=== PATIENT | male | born 1985 | race Caucasian/White ===

== ENCOUNTER 2022-07-01 11:23 | Emergency (ER) | payer BC, SELFPAY ==
[2022-07-01 11:36] VITALS: BP 133/86; PULSE 75; RESP 20; TEMP 36.5; O2SAT 99
--- NOTE | 2022-07-01 12:12 | ED.LOWEXIN ---
HPI - Extremity Injury (Lower) General Chief Complaint: Extremity Injury, Lower Stated Complaint: rt foot pain Source: patient Mode of arrival: ambulatory Limitations: no limitations History of Present Illness HPI Narrative: This is a 37 year old male that come in complaining right great toe pain that has been hurting since Halloween democrat. Patient state that it is not getting any better and it is hurting when he puts his socks and shoes on . Patient states that he believes he has gout even though he has never had it before. He states he does drink he like his Beer and bourbon. Related Data Home Medications Medication Instructions Recorded Confirmed azelastine 137 mcg (0.1 %) nasal 137 mcg intranasal Q12H 07/01/22 07/01/22 spray aerosol cetirizine 10 mg tablet (Zyrtec) 10 mg PO DAILY 07/01/22 07/01/22 Allergies Allergy/AdvReac Type Severity Reaction Status Date / Time No Known Allergies Allergy Unknown Verified 07/01/22 11:40 Review of Systems Review of Systems: right great toe pain All systems reviewed & are unremarkable except as noted in HPI and below Exam Narrative: GENERAL:Well-appearing, well-nourished, and in no acute distress. HEAD:Normocephalic, atraumatic. EYES: PERRLA . ENT: Nares clear, no rhinorrhea or epistaxis. Mucous membranes moist. CHEST: No respiratory distress. HEART: Regular rate and rhythm. Normal peripheral pulses. ABDOMEN: Soft, nontender, nondistended, normal active bowel sounds. EXTREMITIES: Normal range of motion. No edema. right great toe swollen minimal erythema painful palpation and painful to even move SKIN: Warm, dry, no rash. NEURO: No focal deficits. Alert and oriented x3. I offered a xray to see if I could see some crystallization patient declined and just wanted to be treated for gout. Course Course Level of Care: Express Care Visit Vital Signs Vital signs: Vital Signs Temperature 97.7 F 07/01/22 11:36 Pulse Rate 75 07/01/22 11:36 Respiratory Rate 20 07/01/22 11:36 Blood Pressure 133/86 07/01/22 11:36 Pulse Oximetry 99 07/01/22 11:36 Oxygen Delivery Room Air 07/01/22 11:36 Temperature 97.7 F 07/01/22 11:36 Pulse Rate 75 07/01/22 11:36 Respiratory Rate 20 07/01/22 11:36 Blood Pressure 133/86 07/01/22 11:36 Pulse Oximetry 99 07/01/22 11:36 Oxygen Delivery Room Air 07/01/22 11:36 MDM - Extremity Injury (Lower) Differential Diagnosis Differential diagnosis: Likely ankle sprain and strain, puncture wound of foot and fracture of toe Discharge Plan Discharge Clinical Impression: Acute gout involving toe of right foot Patient Disposition: Home, Self-Care Condition: Stable Instructions: Antibiotic Form, Gout (ED) Additional Instructions: If the joint is swollen, put ice or a cold pack on the area for 10 to 20 minutes at a time. Put a thin cloth between the ice and your skin. Prop up the sore limb on a pillow when you ice it or anytime you sit or lie down during the next 3 days. Try to keep it above the level of your heart. This can help reduce swelling. Rest sore joints. Avoid activities that put weight or strain on the joints for a few days. Take short rest breaks from your regular activities during the day. Take your medicines exactly as prescribed. Call your doctor or nurse advice line if you think you are having a problem with your medicine. Take pain medicines exactly as directed. If the doctor gave you a prescription medicine for pain, take it as prescribed. If you are not taking a prescription pain medicine, ask your doctor if you can take an [id number] medicine. Eat less seafood and red meat. Avoid foods or drinks that are made with high-fructose corn syrup. Check with your doctor before drinking alcohol. Losing weight, if you are overweight, may help reduce attacks of gout. But do not go on a diet that causes rapid weight loss. Losing a lot of weight in a short amount of time can caus
== END 2022-07-01 11:56 | disposition home or self-care (01) ==
PROVIDERS: Emergency Provider Nurse Practitioner Family
DX: M10.9 Gout, unspecified (principal)
CPT/HCPCS: 99213; G0463

== ENCOUNTER 2023-01-10 08:08 | Emergency (ER) | payer BC, SELFPAY ==
[2023-01-10 08:19] VITALS: BP 126/87; PULSE 98; RESP 20; TEMP 36.6; O2SAT 97
--- NOTE | 2023-01-10 08:41 | ED.URI ---
HPI - URI/Sore Throat General Chief Complaint: Upper Respiratory Infection Stated Complaint: Sore Throat Time Seen by Provider: 01/10/23 08:28 Source: patient and RN notes reviewed Mode of arrival: ambulatory Limitations: no limitations History of Present Illness HPI Narrative: Presents today complaining of 2 day history of sore throat. Also complains of some allergy symptoms such as rhinorrhea, congestion, and postnasal. Denies fever. Currently rates his pain 3/10 and has been taking Ro-[place] Plus with some relief, along with his allergy medication, Zyrtec and Flonase. Daughter was recently diagnosed with strep throat. Related Data Home Medications Medication Instructions Recorded Confirmed cetirizine 10 mg tablet (Zyrtec) 10 mg PO DAILY 07/01/22 01/10/23 fluticasone propionate 50 2 spray intranasal DAILY 01/10/23 01/10/23 mcg/actuation nasal spray,suspension Allergies Allergy/AdvReac Type Severity Reaction Status Date / Time No Known Allergies Allergy Unknown Verified 01/10/23 08:29 Review of Systems Review of Systems: CONSTITUTIONAL: Denies body aches, fever, chills, or sweats. EYES: Denies visual changes, redness, or discharge. ENT: Denies otalgia.+ sore throat, congestion, rhinorrhea, postnasal drip CARDIOVASCULAR: Denies chest pain, palpitations, or edema. RESPIRATORY: Denies cough or dyspnea. GASTROINTESTINAL: Denies abdominal pain, nausea, vomiting, or diarrhea. GENITOURINARY: Denies dysuria or hematuria. SKIN: Denies rash, itching, or wounds. MUSCULOSKELETAL: Denies back pain, joint pain, or myalgia. NEUROLOGIC: Denies headache, numbness, tingling, or weakness. PSYCH: Denies depression or anxiety. PMFSH Comments At time of signature, I have reviewed and agree with nursing past medical, surgical, social and family history unless otherwise noted. Please see nursing chart for further information. There is no relevant family history pertinent to the presenting complaint Exam Narrative: GENERAL: Well-appearing, well-nourished, and in no acute distress. HEAD: Normocephalic, atraumatic. EYES: EOMI. No redness or drainage. Conjunctivae normal. ENT: Mucous membranes pink and moist. Nares clear. No rhinorrhea. TMs normal bilaterally. Throat erythematous with mild edema. No exudate. Uvula midline. NECK: Normal AROM. Supple. No lymphadenopathy. CHEST: No respiratory distress. Clear to auscultation. HEART: Regular rate and rhythm. No murmur appreciated. Normal peripheral pulses. EXTREMITIES: Normal range of motion. No edema. SKIN: Warm, dry, no rash. Capillary refill normal. Normal skin turgor. NEURO: No focal deficits. Alert and oriented x3. Gait steady. PSYCH: Normal affect. No signs of depression or anxiety. Course Course Level of Care: Express Care Visit Vital Signs Vital signs: Vital Signs Temperature 97.8 F 01/10/23 08:19 Pulse Rate 98 01/10/23 08:19 Respiratory Rate 20 01/10/23 08:19 Blood Pressure 126/87 01/10/23 08:19 Pulse Oximetry 97 01/10/23 08:19 Oxygen Delivery Room Air 01/10/23 08:19 Temperature 97.8 F 01/10/23 08:19 Pulse Rate 98 01/10/23 08:19 Respiratory Rate 20 01/10/23 08:19 Blood Pressure 126/87 01/10/23 08:19 Pulse Oximetry 97 01/10/23 08:19 Oxygen Delivery Room Air 01/10/23 08:19 Reviewed. Pt has been instructed to follow up with his PCP regarding his elevated blood pressure today. MDM - URI/Sore Throat MDM Narrative Medical decision making narrative: Rapid strep negative. Culture pending. Symptoms likely related to seasonal allergies. No prescription medications indicated at this time. Instructed to continue [id number] medications. Anticipatory guidance given. Differential Diagnosis Differential diagnosis: Likely upper respiratory infection, sinusitis, viral infection, pharyngitis and other (Strep throat, seasonal allergies) Lab Data Attestation: I reviewed the patient's lab results. Lab
== END 2023-01-10 08:47 | disposition home or self-care (01) ==
PROVIDERS: Emergency Provider Nurse Practitioner
DX: J02.9 Acute pharyngitis, unspecified (principal); M10.9 Gout, unspecified
CPT/HCPCS: 87081; 87880; 99213; G0463

== ENCOUNTER 2023-01-24 10:48 | Inpatient (IN) | payer BC, SELFPAY ==
[2023-01-24] VITALS (17 sets, daily range): BP systolic 130–149; BP diastolic 85–101; PULSE 67–91; RESP 10–21; TEMP 36.4–36.8; O2SAT 96–100; BMI 40.0
--- NOTE | ~2023-01-24 | CT_ITS ---
EXAMINATION: CT abdomen pelvis wo con DATE: 01/28/2023 12:20 INDICATION: Bowel obstruction. TECHNIQUE: Computed tomography (CT) of the abdomen and pelvis was performed without intravenous contr ast. Automated exposure control and iterative reconstruction technique were employed. The dose-length product was 1841.59 mGy-cm. COMPARISON: CT abdomen and pelvis 01/24/2023 FINDINGS: The visualized portions of the lung bases demonstrate mild atelectasis. No pleural effusion . The heart size is normal. No pericardial effusion. There is diffuse hepatic steatosis. There are ch anges of cholecystectomy. There are gallstones in the residual cystic duct and gallbladder neck. The spleen is normal. There is fat stranding around the pancreas extending inferiorly in the retroperiton eum. The adrenal glands and kidneys are normal. There is no urolithiasis. There is an umbilical herni a containing fat. There are no dilated loops of bowel. The appendix is normal. There is mild thoracic and lumbar spondylosis. IMPRESSION: 1. Acute pancreatitis. 2. Gallstones in the residual cystic duct and gallbladder neck status post cholecystectomy. Reviewed, dictated and finalized at location A. IMPRESSION: 1. Acute pancreatitis. 2. Gallstones in the residual cystic duct and gallbladder neck status post chol ecystectomy.
--- NOTE | ~2023-01-24 | XR_ITS ---
XR chest 2V DATE: 01/24/2023 11:37 INDICATION: Chest pain TECHNIQUE: PA and lateral views COMPARISON: December 04, 2016 PA and lateral chest FINDINGS: Normal heart size. No hilar or mediastinal enlargement. No pulmonary infiltrate or consolid ation, pleural effusion or pulmonary vascular congestion or pneumothorax is detected. Surgical clips, right upper quadrant, likely due to cholecystectomy. IMPRESSION: No active cardiac pulmonary disease Status post cholecystectomy Reviewed, dictated and finalized at location A.
--- NOTE | ~2023-01-24 | XR_ITS ---
EXAMINATION: XR ERCP DATE: 01/27/2023 16:16 INDICATION: Biliary dilatation TECHNIQUE: Two intraoperative fluoroscopic images obtained during endoscopic retrograde cholangiopanc reatography (ERCP) are submitted for review. Total fluoroscopic time was 593.7 seconds. COMPARISON: MRI, 01/25/2023 FINDINGS: The common bile duct is unremarkable. No stones are identified. IMPRESSION: 1. No choledocholithiasis seen. Please refer to the ERCP procedure note for additional details. Reviewed, dictated and finalized at location F. IMPRESSION: 1. No choledocholithiasis seen. Please refer to the ERCP procedure note for add itional details.
--- NOTE | ~2023-01-24 | CT_ITS ---
EXAMINATION: CTA chest PE abdomen pel DATE: 01/24/2023 13:05 INDICATION: Chest pain, elevated d-dimer. Left upper quadrant abdominal pain. TECHNIQUE: Computed tomography angiography (CTA) of the chest abdomen and pelvis was performed with 1 00 mL Omnipaque-350 intravenous contrast timed to evaluate the pulmonary arteries. Coronal maximum in tensity projection 3D-reconstructions were created by the technologist. Automated exposure control an d iterative reconstruction technique were employed. Exam dose: 2559.84 mGy-cm total exam DLP. COMPARISON: 01/24/2023 2 view chest FINDINGS: There is moderate opacification the pulmonary arteries and no evidence of pulmonary embolis m. Normal heart size. No pericardial or pleural effusion. No thoracic aortic aneurysm or dissection. No hilar or mediastinal mass lesion or lymphadenopathy. No pulmonary infiltrate or consolidation. There is hepatic steatosis. There are surgical clips in the right upper quadrant apparently due to ch olecystectomy. Approximately 3.5 and 4 mm stones are noted in the common bile duct in the pancreatic head region. Prominent cystic duct remnant is suggested. Consider MRCP for further evaluation. No kianna e duct or pancreatic duct dilatation. No hepatic, splenic, pancreatic, adrenal or renal space-occupying mass lesion is evident. No urinary tract calculus or hydroureteronephrosis. The urinary bladder and prostate gland are unremarkable. Normal caliber of the abdominal aorta. No intraperitoneal or retroperitoneal or pelvic mass lesion or adenopathy or ascites. No bowel obstruction, bowel wall thickening, pneumatosis or intraperitoneal free air. Mild to moderate fat-containing umbilical hernia. Included skeletal structures are unremarkable. IMPRESSION: No evidence of pulmonary embolism Status post cholecystectomy Choledocholithiasis Hepatic steatosis Reviewed, dictated and finalized at Location [facility]. Reviewed, dictated and finalized at location A.
--- NOTE | ~2023-01-24 | XR_ITS ---
EXAMINATION: XR chest 1V portable DATE: 01/29/2023 15:36 INDICATION: Infection. TECHNIQUE: A single frontal view of the chest was obtained. COMPARISON: Chest 2 views 01/24/2023, CT abdomen and pelvis 01/28/2023 FINDINGS: There is mild atelectasis in the lower lung zones. No pleural effusion or pneumothorax. The heart size is normal. IMPRESSION: 1. Mild atelectasis in the lower lung zones. Reviewed, dictated and finalized at location A.
--- NOTE | ~2023-01-24 | MR_ITS ---
MRI of the abdomen: Clinical indication: Choledocholithiasis. Technique: Coronal SSFSE ARC, WATER:coronal LAVA-FLEX, Coronal 2D FIESTA FatSat, Axial SSFSE BH ARC, Axial 3D DualEcho BH, Axial SSFSE-IR, Axial DWI b=500, Axial 2D FIESTA FatSat, pre and dynamic postco ntrast Axial LAVA ARC, postcontrast Coronal In and Opposed phase LAVA FLEX. Following intravenous adm inistration of 20 cc MultiHance gadolinium, T1-weighted fat-sat imaging was performed in the axial an d coronal planes. Findings: Patient is status post cholecystectomy. The common bile duct is nondilated. No filling defe cts are seen within the CBD. Common hepatic duct is mildly prominent at 10 mm. There is minimal centr al intrahepatic biliary ductal dilatation. The pancreatic duct is normal in size. There is diffuse signal drop off in the liver on out of phase images relative to in phase images, con sistent with diffuse fatty infiltration. No focal hepatic abnormality identified. Spleen, pancreas, a drenals, kidneys appear normal. The aorta and the paraaortic regions appear normal. No abnormal postcontrast enhancement. Impression: No evidence of choledocholithiasis. Diffuse fatty infiltration of liver. Minimal intrahepatic biliary dilatation may be related to prior cholecystectomy. Reviewed, dictated and finalized at [facility]. Impression: No evidence of choledocholithiasis. Diffuse fatty infiltration of liver. Minimal intrahepatic biliary dilatation may be related to prior cholecystectomy .
--- NOTE | 2023-01-24 10:51 | ECG_ITS ---
Measurements Intervals [place] Rate: 84 P: 31 MD: 148 QRS: 67 QRSD: 98 T: 14 QT: 357 QTc: 422 Interpretive Statements SINUS RHYTHM NO PREVIOUS ECG AVAILABLE FOR COMPARISON Electronically Signed On 01-25-2023 12:11:52 CDT by Jacob Burton M.D.
[2023-01-24] MEDS: ASPIRIN 81 MG CHEWABLE TABLET 324 MG PO (11:12)
[2023-01-24 11:16] LABS: Basophils Percent Auto 0.6 % (0.2-1.2); Eosinophils Absolute Auto 0.1 K/mm3 (0-0.3); Hematocrit 44.6 % (42.0-52.0); Hemoglobin 15.8 g/dL (14.0-18.0); Immature Granulocyte Absolute 0.03 K/mm3 (0.00-0.031); Immature Granulocyte Percent A 0.4 % (0-0.5); Lymphocytes Absolute Auto 1.18 K/mm3 (0.9-3.2); Lymphocytes Percent Auto 17.6 % (18.3-44.2); Mean Corpuscular HGB Conc 35.4 g/dl (32-36); Mean Corpuscular Hemoglobin 31.5 pg (26-34); Mean Platelet Volume 9.3 fl (7.4-10.4); Monocytes Absolute Auto 0.6 K/mm3 (0.1-0.6); Monocytes Percent Auto 8.3 % (2.6-8.5); Neutrophils Absolute Auto 4.8 K/mm3 (1.3-6.7); Neutrophils Percent Auto 72.1 % (45.5-73.1); Platelet Count Result 295 k/mm3 (150-375); Red Blood Count 5.01 M/mm3 (4.6-6.20); Red Cell Distribution Width 12.2 % (11.5-14.5); White Blood Count 6.7 K/mm3 (4.5-10.0)
[2023-01-24 11:28] LABS: Alanine Aminotransferase 691 U/L (6-50); Albumin Level 4.6 g/dL (3.5-5.1); Alkaline Phosphatase 228 U/L (38-126); Anion Gap 9 mmol/L (8-16); Aspartate Amino Transferase 377 U/L (17-59); Bilirubin,Total 5.2 mg/dL (0.2-1.3); Blood Urea Nitrogen 9 mg/dL (9-20); Calcium 8.6 mg/dL (8.4-10.2); Carbon Dioxide 28 mmol/L (22-30); Chloride 100 mmol/L (98-107); Estimated CRCL calculation 137 ml/min; Estimated Glomerular Filt Rate > 60; Glucose 123 mg/dL (65-110); Lipase 105 U/L (23-300); Potassium 3.7 mmol/L (3.4-5.0); Sodium 137 mmol/L (137-145)
[2023-01-24 11:29] LABS: INR 0.9; Prothrombin Time 12.8 Seconds (11.1-14.7)
[2023-01-24 11:30] LABS: Partial Thromboplastin Time 25.7 SECONDS (22.3-36.8)
[2023-01-24 11:35] LABS: D Dimer 0.61 ug/mL (<0.48)
[2023-01-24] MEDS: MORPHINE SULFATE (*CRX) 4 MG/ML INJ IV PUSH ×2 (11:35→17:15)
[2023-01-24] MEDS: PANTOPRAZOLE SODIUM IV 40 MG VIAL IV PUSH (11:36)
[2023-01-24] MEDS: ONDANSETRON INJ 4 MG/2 ML VIAL IV PUSH (11:36)
[2023-01-24] MEDS: SODIUM CHLORIDE 0.9% IV 1,000 ML 999 ML IV CONT (11:36)
[2023-01-24 11:39] LABS: Troponin I < 0.012 ng/mL (0.000-0.034)
--- NOTE | 2023-01-24 11:50 | PC.NURSE ---
pt made aware of needing urine sample. pt states he is unable to go at this time and will call when he can go.
--- NOTE | 2023-01-24 11:58 | ED.CHESTPAIN ---
HPI - Chest Pain General Chief Complaint: Chest Pain Stated Complaint: CP,SOB,WEAK,N/V Time Seen by Provider: 01/24/23 10:51 Source: patient, RN notes reviewed and old records reviewed Mode of arrival: ambulatory Limitations: no limitations History of Present Illness HPI narrative: This is a 37 year old male who presents for evaluation of chest pain. Patient states he developed left chest pain on . He is pointing to his left upper abdomen and lower rib. He states this pain has been constant and it does radiate to his back. He also has been having associated nausea and vomiting. Pain seems worse with breathing and movement, but he denies any injuries. He also reports having mild cough 1 week ago but it resolved. He denies fever, chills. He denies any dysuria, hematuria but he has noticed this his urine is dark. He has been trying Tagamet for his pain without relief. Related Data Home Medications Medication Instructions Recorded Confirmed cetirizine 10 mg tablet (Zyrtec) 10 mg PO DAILY 07/01/22 01/24/23 fluticasone propionate 50 2 spray intranasal DAILY 01/10/23 01/24/23 mcg/actuation nasal spray,suspension Allergies Allergy/AdvReac Type Severity Reaction Status Date / Time No Known Allergies Allergy Unknown Verified 01/24/23 10:58 Review of Systems Constitutional: Constitutional: Reports weakness Cardiovascular: Cardiovascular: Reports chest pain, Denies syncope, Denies rapid heart rate, Denies irregular heart rhythm, Denies leg edema and Denies dyspnea Respiratory: Respiratory: Denies chest congestion, Reports cough, Denies hemoptysis, Denies excessive phlegm production and Denies dyspnea Gastrointestinal: Gastrointestinal: Reports abdominal pain, Denies hematochezia, Denies diarrhea, Reports nausea and Reports vomiting Genitourinary: Genitourinary: Denies hematuria, Denies dysuria, Denies penile discharge and Denies testicular pain Comments: dark urine Musculoskeletal: Musculoskeletal: Denies joint swelling, Denies loss of height and Denies muscle weakness Neurologic: Denies syncope, Denies focal weakness and Denies weakness PMFSH Past Medical History Medical History (Updated 01/24/23 @ 18:38 by Luisa Reis MD) Gout Hepatic steatosis Noted on CT scan 01/24/2023. Seasonal allergies Surgical History Surgical History (Updated 01/24/23 @ 16:04 by Inge Maldonado PA-C) History of cholecystectomy Social History Social History (Updated 01/24/23 @ 16:05 by Inge Maldonado PA-C) Social History: Surrogate medical decision maker: Jeanette Coker, spouse. Code status: Full code. Smoking status: Never smoker Alcohol use details: Rare alcohol use. Lack of Transportation: No Lack of Food: Never True Current Housing: I Have Housing Concerned About Future Housing: No Difficulty Paying Gas/Electric Bills: No Difficulty Paying for Meds: No Currently Unemployed: No Education: Associate Degree Difficulty w/ Childcare or Family Care: No Spiritual care concerns: No Course Consultations Consultation #1: I discussed elevated lfts and CT showing common bile duct stone. He agrees patient can be admitted and he will consult Date: 01/24/23 Time: 13:32 Consultation #2: I Discussed case and inge accepts to service. Date: 01/24/23 Time: 13:39 Vital Signs Vital signs: Vital Signs Temperature 98.3 F 01/24/23 10:52 Pulse Rate 87 01/24/23 10:52 Respiratory Rate 16 01/24/23 10:52 Blood Pressure 149/101 H 01/24/23 10:52 Pulse Oximetry 98 01/24/23 10:52 Oxygen Delivery Room Air 01/24/23 10:52 Temperature 97.6 F 01/24/23 15:00 Pulse Rate 80 01/24/23 15:00 Respiratory Rate 16 01/24/23 15:00 Blood Pressure 130/90 01/24/23 15:00 Pulse Oximetry 98 01/24/23 15:00 Oxygen Delivery Room Air 01/24/23 15:04 MDM - Chest Pain MDM Narrative Medical decision making narrative: cbc, cmp, lipase, d dime
[2023-01-24 12:00] LABS: Creatine Kinase 115 U/L (55-170)
[2023-01-24 12:26] LABS: Appearance Urine Clear (Clear); Bilirubin Urine Negative (Negative); Blood Urine Negative (Negative); Color Urine Dark Yellow (Yellow); Glucose Urine UA Negative (Negative); Ketones Urine Negative (Negative); Leukocyte Esterase Ur Negative LEU/UL (Negative); Nitrate Urine Negative (Negative); Protein Urine Negative (Negative); Specific Grav Ur 1.003 (1.001-1.035); Urobilinogen Urine 0.2 mg/dL (<2.0); pH Urine 7.5 (5.0-9.0)
[2023-01-24 12:32] LABS: Add Urine Microscopic? NO
[2023-01-24 12:34] LABS: Hepatitis B Surface Antigen Negative (Negative)
[2023-01-24 12:39] LABS: HAV RESULT Negative (Negative); Hepatitis B Core IgM Result Negative (Negative)
[2023-01-24 12:51] LABS: Hepatitis C Virus Antibody Negative (Negative)
[2023-01-24] MEDS: SODIUM CHLORIDE 0.9% IV 1,000 ML 125 ML IV CONT ×2 (14:02→22:06)
[2023-01-24 14:31] LABS: Troponin I < 0.012 ng/mL (0.000-0.034)
--- NOTE | 2023-01-24 14:53 | ADMGEN ---
This patient, Robert Coker III, was admitted to [facility] Surg Room 301-01 ay 1450. Patient/family oriented to hospital policies and general routines including ID bracelet, bed and alarms, visiting hours, pain management, procedures, bathroom and other care routines, personal items, smoking policy, room service/diet, and visiting hours. Information on how to activate the Rapid Response Team has been discussed. Patient/Family are encouraged to report perceived risks to care and to ask questions if they do not understand what they are told or what they should do.
--- NOTE | 2023-01-24 16:01 | PM.IMHP ---
H&P: HPI History of Present Illness Date/Time: 01/24/23 16:30 Chief Complaint: Abdominal pain, nausea, and vomiting. Narrative: This is a very pleasant 37-year-old male with status post cholecystectomy in 2017 who presented to the emergency department via private vehicle from home for evaluation of abdominal pain, nausea, and vomiting. he developed sudden onset severe cramping pain in the left lower chest/left upper quadrant radiating around the flank and to the back associated with nausea, vomiting, and ultimately dry heaves. The pain has been constant since the outset however does come and go in waves of intensity. He has been taking Aleve, Gaviscon, and Tagament for his symptoms which have not helped much. His symptoms seem to worsen with deep inspiration and palpation. The last couple of days he has noticed that his urine has turned a dark brown/orange color and he has felt itchy. He denies fever, pleuritic chest pain, shortness a breath, hematemesis, melena, hematuria, and dysuria. Vital signs were stable on arrival to the emergency department. Pertinent labs include a white blood cell count of 6.7, total bilirubin of 5.2, AST 377, ALT 691, alkaline phosphatase 228, lipase 105. UA was unremarkable. CTA of the chest, abdomen, and pelvis was negative for pulmonary embolism but did show choledocholithiasis 3.5 and 4 mm stones in the pancreatic head region of the common bile duct and hepatic steatosis. He is being admitted in this setting for supportive care, MRCP, and GI consultation. At the time my evaluation he is feeling better after receiving morphine and he has no specific complaints. Review of Systems Review of Systems: Twelve systems were reviewed and are negative except for as per HPI [facility] Past Medical History Medical History (Updated 01/24/23 @ 18:38 by Luisa Reis MD) Gout Hepatic steatosis Noted on CT scan 01/24/2023. Seasonal allergies Surgical History Surgical History (Updated 01/24/23 @ 16:04 by Diana Maldonado PA-C) History of cholecystectomy Family History Family History (Updated 01/24/23 @ 20:58 by Diana Maldonado PA-C) Other Family history non-contributory Social History Social History (Updated 01/24/23 @ 20:59 by Diana Maldonado PA-C) Social History: Surrogate medical decision maker: Jeanette Coker, spouse. Code status: Full code. Smoking status: Never smoker Alcohol use details: Rare alcohol use. Lack of Transportation: No Lack of Food: Never True Current Housing: I Have Housing Concerned About Future Housing: No Difficulty Paying Gas/Electric Bills: No Difficulty Paying for Meds: No Currently Unemployed: No Education: Associate Degree Difficulty w/ Childcare or Family Care: No Additional living arrangements comments: Lives with spouse and 3 children in [place]. Additional occupation/education comments: Works for [email or web address]. Spiritual care concerns: No Meds Home Medications and Allergies Home Medications Medication Instructions Recorded Confirmed Type cetirizine 10 mg tablet (Zyrtec) 10 mg PO DAILY 07/01/22 01/24/23 History fluticasone propionate 50 2 spray intranasal DAILY 01/10/23 01/24/23 History mcg/actuation nasal spray,suspension Allergies Allergy/AdvReac Type Severity Reaction Status Date / Time No Known Allergies Allergy Unknown Verified 01/24/23 10:58 Vital Signs Vital Signs - 24 hr 01/24/23 10:52 01/24/23 10:57 01/24/23 10:57 Temperature 98.3 F Pulse Rate 87 81 Respiratory Rate 16 Blood Pressure 149/101 H Pulse Oximetry 98 98 Oxygen Delivery Room Air Room Air 01/24/23 11:50 01/24/23 10:54 01/24/23 11:00 Temperature Pulse Rate 85 90 81 Respiratory Rate 19 17 19 Blood Pressure 136/89 Pulse Oximetry 97 98 100 Oxygen Delivery 01/24/23 11:01 01/24/23 11:15 01/24/23 12:02 Temperature Pulse Rate 91 83 67 Respiratory Rate 14 12 12 Blood Press
[2023-01-24 17:52] LABS: Troponin I < 0.012 ng/mL (0.000-0.034)
[2023-01-24] MEDS: ACETAMINOPHEN 325 MG TABLET 650 MG PO (21:12)
[2023-01-25] MEDS: ONDANSETRON INJ 4 MG/2 ML VIAL IV PUSH ×2 (01:28→20:08)
[2023-01-25] MEDS: MORPHINE SULFATE (*CRX) 4 MG/ML INJ IV PUSH (01:32)
[2023-01-25 05:57] LABS: Basophils Percent Auto 0.6 % (0.2-1.2); Eosinophils Absolute Auto 0.1 K/mm3 (0-0.3); Eosinophils Percent Auto 0.8 % (0-4.4); Hematocrit 41.2 % (42.0-52.0); Hemoglobin 14.2 g/dL (14.0-18.0); Immature Granulocyte Absolute 0.05 K/mm3 (0.00-0.031); Immature Granulocyte Percent A 0.7 % (0-0.5); Lymphocytes Absolute Auto 1.43 K/mm3 (0.9-3.2); Lymphocytes Percent Auto 20.1 % (18.3-44.2); Mean Corpuscular HGB Conc 34.5 g/dl (32-36); Mean Corpuscular Hemoglobin 31.3 pg (26-34); Mean Corpuscular Volume 90.9 fl (80-100); Mean Platelet Volume 9.3 fl (7.4-10.4); Monocytes Absolute Auto 0.7 K/mm3 (0.1-0.6); Monocytes Percent Auto 9.1 % (2.6-8.5); Neutrophils Absolute Auto 4.9 K/mm3 (1.3-6.7); Neutrophils Percent Auto 68.7 % (45.5-73.1); Platelet Count Result 259 k/mm3 (150-375); Red Blood Count 4.53 M/mm3 (4.6-6.20); White Blood Count 7.1 K/mm3 (4.5-10.0)
[2023-01-25 06:00] VITALS: BP 129/81; PULSE 69; RESP 18; TEMP 36.2; O2SAT 97
[2023-01-25 06:18] LABS: Alanine Aminotransferase 537 U/L (6-50); Albumin Level 3.8 g/dL (3.5-5.1); Alkaline Phosphatase 184 U/L (38-126); Anion Gap 4 mmol/L (8-16); Aspartate Amino Transferase 224 U/L (17-59); Bilirubin,Total 5.2 mg/dL (0.2-1.3); Blood Urea Nitrogen 8 mg/dL (9-20); Calcium 8.2 mg/dL (8.4-10.2); Carbon Dioxide 30 mmol/L (22-30); Chloride 104 mmol/L (98-107); Estimated CRCL calculation 137 ml/min; Estimated Glomerular Filt Rate > 60; Glucose 102 mg/dL (65-110); Lipase 84 U/L (23-300); Sodium 138 mmol/L (137-145)
[2023-01-25] MEDS: SODIUM CHLORIDE 0.9% IV 1,000 ML 125 ML IV CONT ×2 (06:40→16:12)
[2023-01-25] MEDS: LORazepam INJ (*CRX) 2 MG/ML VIAL 1 MG IV PUSH (08:21)
[2023-01-25 09:18] VITALS: O2SAT 97
[2023-01-25] MEDS: MORPHINE SULFATE (*CRX) 2 MG/ML INJ IV PUSH (11:00)
[2023-01-25] MEDS: LORATADINE 10 MG TABLET PO (11:03)
--- NOTE | 2023-01-25 13:45 | PM.IMPN ---
Progress Note: A&P Assessment and Plan (1) Choledocholithiasis: Code(s): K80.50 - Calculus of bile duct without cholangitis or cholecystitis without obstruction Status: Acute Assessment and Plan: presented with low chest/left upper quadrant pain, nausea, vomiting, and dry heaves CT shows 2 stones in the common bile duct LFTs are elevated at AST/ALT 377/691, T. Bili 5.2 upon admission Currently AST/ALT 224/537, T bili 5.2 MRCP found GI consulted thank you for your help IV fluids continued NPO for now Pain medications and antiemetics ordered (2) Transaminitis: Code(s): R74.01 - Elevation of levels of liver transaminase levels Status: Acute Assessment and Plan: LFTs are elevated at AST/ALT 377/691, T. Bili 5.2 upon admission Currently AST/ALT 224/537, T bili 5.2 Trending down related to stone blockage in the common bile duct Hep panel negative Continue to trend (3) Hepatic steatosis: Code(s): K76.0 - Fatty (change of) liver, not elsewhere classified Status: Acute Assessment and Plan: Seen on the CT Outpatient follow up if indicated Time Spent With Patient Time: 51 minutes Time with patient: Greater than 35 minutes Subjective Date/time seen: 01/25/231344 Interval history: 01/25/231344 Patient is doing ok. He is sitting up in bed. He is stating the his pain is in the left side. He also stated that he is hungry. He is getting nauseous. He has not eating Thursday. He stated that his pain is a 6-7/10. He stated that the pain is making it hard for him to breathe. He does think that the pain is from not being able to eat. He denies any chest pain, vomiting, diarrhea, constipation, weakness or fatigue. 01/24/23? 16:30 This is a very pleasant 37-year-old male with status post cholecystectomy in 2017 who presented to the emergency department via private vehicle from home for evaluation of abdominal pain, nausea, and vomiting. afternoon he developed sudden onset severe cramping pain in the left lower chest/left upper quadrant radiating around the flank and to the back associated with nausea, vomiting, and ultimately dry heaves. The pain has been constant since the outset however does come and go in waves of intensity. He has been taking Aleve, Gaviscon, and Tagament for his symptoms which have not helped much. His symptoms seem to worsen with deep inspiration and palpation. The last couple of days he has noticed that his urine has turned a dark brown/orange color and he has felt itchy. He denies fever, pleuritic chest pain, shortness a breath, hematemesis, melena, hematuria, and dysuria. Vital signs were stable on arrival to the emergency department. Pertinent labs include a white blood cell count of 6.7, total bilirubin of 5.2, AST 377, ALT 691, alkaline phosphatase 228, lipase 105. UA was unremarkable. CTA of the chest, abdomen, and pelvis was negative for pulmonary embolism but did show choledocholithiasis 3.5 and 4 mm stones in the pancreatic head region of the common bile duct and hepatic steatosis. He is being admitted in this setting for supportive care, MRCP, and GI consultation. At the time my evaluation he is feeling better after receiving morphine and he has no specific complaints. Review of Systems Review of Systems: All systems reviewed & are unremarkable except as noted in HPI and below Exam Narrative: General: well-nourished, ill-appearing 37-year-old female, sitting up in bed, uncomfortable, NARD Neuro: awake, alert and oriented x4, speech clear, no focal neuro deficits noted HEENMT: normocephalic, atraumatic, EOMI, sclerae anicteric, moist oral mucosa Respiratory: Clear to auscultation bilaterally without crackles, rhonchi or wheezes, nonlabored breathing Cardio: regular rate, regular rhythm with S1-S2 Abdomen: nondistended, normoactive bowel sounds, soft, nontender to palpation Extre
[2023-01-25 14:00] VITALS: BP 145/97; PULSE 80; RESP 16; TEMP 36; O2SAT 100
[2023-01-25] MEDS: HYDROmorphone HCL INJ (*CRX) 1 MG/ML SYR IV PUSH ×3 (15:23→23:29)
--- NOTE | 2023-01-25 20:27 | WPDGICN ---
Assessment and Plan Assessment and plan (1) Elevated liver enzymes: Code(s): R74.8 - Abnormal levels of other serum enzymes Status: Acute Assessment and Plan: probably this is biliary related, pending mrcp but it seems that he has choledocholithiasis will need ercp, probably thursday ok to have CL diet and pain control (2) Upper abdominal pain: Code(s): R10.10 - Upper abdominal pain, unspecified Status: Acute (3) Choledocholithiasis: Code(s): K80.50 - Calculus of bile duct without cholangitis or cholecystitis without obstruction Status: Acute Assessment and Plan: mrcp pending but ct scan probably with bile duct stones (4) Nausea and vomiting in adult: Code(s): R11.2 - Nausea with vomiting, unspecified Status: Acute Assessment and Plan: antiemetics prn (5) GERD (gastroesophageal reflux disease): Code(s): K21.9 - Gastro-esophageal reflux disease without esophagitis Status: Acute GI Consult Note Consult date/time: 01/25/23 20:27 Reason for consult: abdominal pain, elevated liver enzymes HPI: Robert Coker III is a 37 year old male with cholecystectomy in 2017 who came to the emergency department via private vehicle from home for new onset of upper abdominal pain, nausea, and vomiting started last mostly in the left upper quadrant radiating around the flank and to the back with nausea with vomiting, pain became more severe. Then he noted dark urine and itchy, no fever. He denies fever. Labs showed white blood cell count of 6.7, total bilirubin of 5.2, AST 377, ALT 691, alkaline phosphatase 228, lipase 105. UA was unremarkable. CTA of the chest, abdomen, and pelvis was negative for pulmonary embolism but did show choledocholithiasis 3.5 and 4 mm stones in the pancreatic head region of the common bile duct and hepatic steatosis. He also has longstanding gerd using antacids as needed (he was on nexium in the past) Review of Systems Constitutional: Constitutional: Denies chills Eyes: Eyes: Denies blurry vision ENT: Reports Normal hearing present Cardiovascular: Cardiovascular: Denies diaphoresis Respiratory: Respiratory: Denies cough Gastrointestinal: Gastrointestinal: Reports abdominal pain and Reports nausea Genitourinary: Comments: dark urine Musculoskeletal: Musculoskeletal: Reports back pain Integumentary/Breasts: Skin/Breast: Denies rash Neurologic: Denies Abnormal speech present Psychiatric: Psychiatric: Denies behavioral changes [facility] Past Medical History Medical History (Updated 01/25/23 @ 20:35 by Blayne Jauregui MD) Elevated liver enzymes GERD (gastroesophageal reflux disease) Gout Hepatic steatosis Noted on CT scan 01/24/2023. Nausea and vomiting in adult Seasonal allergies Upper abdominal pain Surgical History Surgical History (Updated 01/24/23 @ 16:04 by Diana Maldonado PA-C) History of cholecystectomy Family History Family History (Updated 01/24/23 @ 20:58 by Diana Maldonado PA-C) Other Family history non-contributory Social History Social History (Updated 01/24/23 @ 20:59 by Diana Maldonado PA-C) Social History: Surrogate medical decision maker: Jeanette Coker, spouse. Code status: Full code. Smoking status: Never smoker Alcohol use details: Rare alcohol use. Lack of Transportation: No Lack of Food: Never True Current Housing: I Have Housing Concerned About Future Housing: No Difficulty Paying Gas/Electric Bills: No Difficulty Paying for Meds: No Currently Unemployed: No Education: Associate Degree Difficulty w/ Childcare or Family Care: No Additional living arrangements comments: Lives with spouse and 3 children in [place]. Additional occupation/education comments: Works for [employer]. Spiritual care concerns: No Meds Home Medications and Allergies Home Medications Medication Instructions Recorde
[2023-01-25 21:17] VITALS: BP 140/87; PULSE 75; RESP 18; TEMP 37; O2SAT 97
[2023-01-26] MEDS: HYDROmorphone HCL INJ (*CRX) 1 MG/ML SYR IV PUSH ×3 (04:15→19:07)
[2023-01-26] MEDS: SODIUM CHLORIDE 0.9% IV 1,000 ML 125 ML IV CONT ×3 (04:15→17:12)
[2023-01-26 06:00] VITALS: BP 137/93; PULSE 70; RESP 18; TEMP 36.5; O2SAT 98
[2023-01-26 06:54] LABS: Basophils Percent Auto 0.3 % (0.2-1.2); Eosinophils Percent Auto 0.5 % (0-4.4); Hematocrit 43.5 % (42.0-52.0); Hemoglobin 14.8 g/dL (14.0-18.0); Immature Granulocyte Absolute 0.03 K/mm3 (0.00-0.031); Immature Granulocyte Percent A 0.4 % (0-0.5); Lymphocytes Percent Auto 12.9 % (18.3-44.2); Mean Corpuscular Hemoglobin 31.4 pg (26-34); Mean Corpuscular Volume 92.2 fl (80-100); Mean Platelet Volume 9.8 fl (7.4-10.4); Monocytes Absolute Auto 0.7 K/mm3 (0.1-0.6); Monocytes Percent Auto 9.3 % (2.6-8.5); Neutrophils Absolute Auto 5.9 K/mm3 (1.3-6.7); Neutrophils Percent Auto 76.6 % (45.5-73.1); Platelet Count Result 286 k/mm3 (150-375); Red Blood Count 4.72 M/mm3 (4.6-6.20); Red Cell Distribution Width 12.3 % (11.5-14.5); White Blood Count 7.7 K/mm3 (4.5-10.0)
[2023-01-26 07:04] LABS: Alanine Aminotransferase 546 U/L (6-50); Albumin Level 4.2 g/dL (3.5-5.1); Alkaline Phosphatase 217 U/L (38-126); Anion Gap 7 mmol/L (8-16); Aspartate Amino Transferase 223 U/L (17-59); Bilirubin,Total 5.6 mg/dL (0.2-1.3); Blood Urea Nitrogen 7 mg/dL (9-20); Calcium 8.5 mg/dL (8.4-10.2); Carbon Dioxide 31 mmol/L (22-30); Chloride 99 mmol/L (98-107); Estimated CRCL calculation 153 ml/min; Estimated Glomerular Filt Rate > 60; Glucose 110 mg/dL (65-110); Magnesium 2.1 mg/dL (1.6-2.3); Potassium 3.8 mmol/L (3.4-5.0); Sodium 137 mmol/L (137-145)
[2023-01-26] MEDS: FLUTICASONE PROPIONATE 0.05% NA SPR 16 GM BTL (*BKC) 2 SPRAY NASAL (08:29)
[2023-01-26] MEDS: LORATADINE 10 MG TABLET PO (08:29)
[2023-01-26] MEDS: ONDANSETRON INJ 4 MG/2 ML VIAL IV PUSH (08:32)
[2023-01-26] MEDS: HYDROmorphone HCL INJ (*CRX) 1 MG/ML SYR 0.5 MG IV PUSH (12:53)
[2023-01-26 14:00] VITALS: BP 148/93; PULSE 72; RESP 16; TEMP 36.6; O2SAT 97
--- NOTE | 2023-01-26 15:25 | PM.IMPN ---
Progress Note: A&P Assessment and Plan (1) Choledocholithiasis: Code(s): K80.50 - Calculus of bile duct without cholangitis or cholecystitis without obstruction Status: Acute Assessment and Plan: presented with low chest/left upper quadrant pain, nausea, vomiting, and dry heaves CT shows 2 stones in the common bile duct LFTs are elevated at AST/ALT 377/691, T. Bili 5.2 upon admission Currently AST/ALT 223/546, T bili 5.6 MRCP found no evidence of choledocholithiasis, diffuse fatty infiltration of liver and minimal Intrahepatic biliary dilation that could be related to prior cholecystectomy. ERCP planned for 01/27/2023 at 4:30P.m. GI consulted thank you for your help IV fluids continued Pain medications and antiemetics ordered (2) Transaminitis: Code(s): R74.01 - Elevation of levels of liver transaminase levels Status: Acute Assessment and Plan: LFTs are elevated at AST/ALT 377/691, T. Bili 5.2 upon admission related to stone blockage in the common bile duct Hep panel negative Continue to trend (3) Hepatic steatosis: Code(s): K76.0 - Fatty (change of) liver, not elsewhere classified Status: Acute Assessment and Plan: Seen on the CT Outpatient follow up if indicated Subjective Date/time seen: 01/26/23 15:25 Interval history: Patient states that he still has abdominal pain if he is not getting his dilaudid every 3 hours. he has had intermittent nausea that is relieved with Zofran. He denies vomiting. He has not had any fevers, chills, body aches or diarrhea. Patient planned for ERCP tomorrow in the late afternoon. Review of Systems Review of Systems: All systems reviewed & are unremarkable except as noted in HPI and below Exam Narrative: GENERAL: Comfortable, no acute distress HENMT: moist mucous membranes EYES: EOM intact b/l NECK: no lymphadenopathy RESPIRATORY: clear to auscultation CARDIO: RRR GI: soft, nontender, bowel sounds present SKIN: no rashes EXTREMITIES: no edema, redness or tenderness Objective Data Vital Signs Vital Signs: Vital Signs - 24 hr 01/25/23 21:17 01/25/23 20:00 01/26/23 06:00 Temperature 98.6 F 97.7 F Pulse Rate 75 70 Respiratory Rate 18 18 Blood Pressure 140/87 137/93 H Pulse Oximetry 97 98 Oxygen Delivery Room Air 01/26/23 14:00 Temperature 97.8 F Pulse Rate 72 Respiratory Rate 16 Blood Pressure 148/93 H Pulse Oximetry 97 Oxygen Delivery Intake/Output Intake/Output: Intake & Output 01/23/23 01/24/23 01/25/23 01/26/23 23:59 23:59 23:59 23:59 Intake Total 2360 3060 2722 Balance 2360 3060 2722 Meds/Results Medications: Active Medications Generic Name Dose Route Start Last Admin Trade Name Freq PRN Reason Stop Dose Admin Fluticasone Propionate 2 spray 01/25/23 09:00 01/26/23 08:29 Fluticasone Propionate 0.05% Na Spr 16 Gm Btl (*Bkc) NASAL 2 spray DAILY RENATO Administration Hydromorphone HCl 0.5 mg 01/25/23 17:43 01/26/23 12:53 Hydromorphone Hcl Inj (*Crx) 1 Mg/Ml Syr IV PUSH 0.5 mg Q3H PRN Administration Pain 4-6 Hydromorphone HCl 1 mg 01/26/23 13:05 Hydromorphone Hcl Inj (*Crx) 1 Mg/Ml Syr IV PUSH Q3H PRN Pain Rated 7-10 Sodium Chloride 1,000 mls @ 125 mls/hr 01/24/23 13:45 01/26/23 08:31 Normal Saline Iv IV CONT 125 mls/hr .Q8H RENATO Administration Loratadine 10 mg 01/25/23 09:00 01/26/23 08:29 Loratadine 10 Mg Tablet PO 10 mg QAM RENATO Administration Ondansetron HCl 4 mg 01/24/23 13:44 01/26/23 08:32 Ondansetron Inj 4 Mg/2 Ml Vial IV PUSH 4 mg Q4H PRN Administration Nausea Radiology Results: ITS Impressions Chest X-Ray 01/24/23 11:45 IMPRESSION: No active cardiac pulmonary disease Status post cholecystectomy Chest/Abdomen/Pelvis CTA 01/24/23 13:13 IMPRESSION: No evidence of pulmonary embolism Status post cholecyste
--- NOTE | 2023-01-26 15:41 | WPDGIPROGNO ---
Progress Note: A&P Assessment and Plan (1) Choledocholithiasis: Code(s): K80.50 - Calculus of bile duct without cholangitis or cholecystitis without obstruction Status: Acute Assessment and Plan: CT scan showed stones but did not find in mrcp however still with persistent jaundice, denies recent use of any new medication, hepatitis negative we can do ercp to assess biliary system (2) Nausea and vomiting in adult: Code(s): R11.2 - Nausea with vomiting, unspecified Status: Acute Assessment and Plan: improved (3) Upper abdominal pain: Code(s): R10.10 - Upper abdominal pain, unspecified Status: Acute Assessment and Plan: still requiring pain meds as needed Subjective Date/time seen: 01/26/23 15:41 Objective Data Vital Signs Vital Signs: Vital Signs - 24 hr 01/25/23 21:17 01/25/23 20:00 01/26/23 06:00 Temperature 98.6 F 97.7 F Pulse Rate 75 70 Respiratory Rate 18 18 Blood Pressure 140/87 137/93 H Pulse Oximetry 97 98 Oxygen Delivery Room Air 01/26/23 14:00 Temperature 97.8 F Pulse Rate 72 Respiratory Rate 16 Blood Pressure 148/93 H Pulse Oximetry 97 Oxygen Delivery Intake/Output Intake/Output: Intake & Output 01/23/23 01/24/23 01/25/23 01/26/23 23:59 23:59 23:59 23:59 Intake Total 2360 3060 2722 Balance 2360 3060 2722 Meds/Results Medications: Active Medications Generic Name Dose Route Start Last Admin Trade Name Freq PRN Reason Stop Dose Admin Fluticasone Propionate 2 spray 01/25/23 09:00 01/26/23 08:29 Fluticasone Propionate 0.05% Na Spr 16 Gm Btl (*Bkc) NASAL 2 spray DAILY RENATO Administration Hydromorphone HCl 0.5 mg 01/25/23 17:43 01/26/23 12:53 Hydromorphone Hcl Inj (*Crx) 1 Mg/Ml Syr IV PUSH 0.5 mg Q3H PRN Administration Pain 4-6 Hydromorphone HCl 1 mg 01/26/23 13:05 Hydromorphone Hcl Inj (*Crx) 1 Mg/Ml Syr IV PUSH Q3H PRN Pain Rated 7-10 Sodium Chloride 1,000 mls @ 125 mls/hr 01/24/23 13:45 01/26/23 08:31 Normal Saline Iv IV CONT 125 mls/hr .Q8H RENATO Administration Loratadine 10 mg 01/25/23 09:00 01/26/23 08:29 Loratadine 10 Mg Tablet PO 10 mg QAM RENATO Administration Ondansetron HCl 4 mg 01/24/23 13:44 01/26/23 08:32 Ondansetron Inj 4 Mg/2 Ml Vial IV PUSH 4 mg Q4H PRN Administration Nausea Radiology Results: ITS Impressions Chest X-Ray 01/24/23 11:45 IMPRESSION: No active cardiac pulmonary disease Status post cholecystectomy Chest/Abdomen/Pelvis CTA 01/24/23 13:13 IMPRESSION: No evidence of pulmonary embolism Status post cholecystectomy Choledocholithiasis Hepatic steatosis MRCP 01/25/23 19:08 Impression: No evidence of choledocholithiasis. Diffuse fatty infiltration of liver. Minimal intrahepatic biliary dilatation may be related to prior cholecystectomy. Labs Labs: Laboratory Results - last 24 hr 01/26/23 06:02 WBC 7.7 RBC 4.72 Hgb 14.8 Hct 43.5 MCV 92.2 MCH 31.4 MCHC 34.0 RDW 12.3 Plt Count 286 MPV 9.8 Immature Gran % (Auto) 0.4 Neut % (Auto) 76.6 H Lymph % (Auto) 12.9 L [place] % (Auto) 9.3 H Eos % (Auto) 0.5 Baso % (Auto) 0.3 Lymph # (Auto) 1.00 [place] # (Auto) 0.7 H Eos # (Auto) 0.0 Baso # (Auto) 0.0 Abs Immat Gran (auto) 0.03 Absolute Neuts (auto) 5.9 Absolute Nucleated RBC 0.0 Nucleated RBC % 0.0 Sodium 137 Potassium 3.8 Chloride 99 Carbon Dioxide 31 H Anion Gap 7 L BUN 7 L Creatinine 0.80 Estim Creat Clear Calc 153 Estimated GFR > 60 Glucose 110 Calcium 8.5 Magnesium 2.1 Total Bilirubin 5.6 H AST 223 H ALT 546 H Alkaline Phosphatase 217 H Total Protein 8.0 Albumin 4.2
[2023-01-26 21:47] VITALS: BP 136/82; PULSE 79; RESP 18; TEMP 36.4; O2SAT 98
[2023-01-27] VITALS (13 sets, daily range): BP systolic 103–151; BP diastolic 57–93; PULSE 70–108; RESP 13–22; TEMP 35.7–36.7; O2SAT 96–100
[2023-01-27] MEDS: SODIUM CHLORIDE 0.9% IV 1,000 ML 125 ML IV CONT ×3 (01:02→23:34)
[2023-01-27 07:25] LABS: Basophils Percent Auto 0.4 % (0.2-1.2); Eosinophils Absolute Auto 0.1 K/mm3 (0-0.3); Eosinophils Percent Auto 1.2 % (0-4.4); Hematocrit 44.6 % (42.0-52.0); Hemoglobin 15.4 g/dL (14.0-18.0); Immature Granulocyte Absolute 0.06 K/mm3 (0.00-0.031); Immature Granulocyte Percent A 0.8 % (0-0.5); Lymphocytes Absolute Auto 1.31 K/mm3 (0.9-3.2); Mean Corpuscular HGB Conc 34.5 g/dl (32-36); Mean Corpuscular Hemoglobin 31.8 pg (26-34); Mean Platelet Volume 9.7 fl (7.4-10.4); Monocytes Absolute Auto 0.6 K/mm3 (0.1-0.6); Monocytes Percent Auto 8.5 % (2.6-8.5); Neutrophils Absolute Auto 5.2 K/mm3 (1.3-6.7); Neutrophils Percent Auto 71.1 % (45.5-73.1); Platelet Count Result 286 k/mm3 (150-375); Red Blood Count 4.85 M/mm3 (4.6-6.20); Red Cell Distribution Width 12.6 % (11.5-14.5); White Blood Count 7.3 K/mm3 (4.5-10.0)
[2023-01-27 07:43] LABS: Alanine Aminotransferase 523 U/L (6-50); Albumin Level 4.1 g/dL (3.5-5.1); Alkaline Phosphatase 188 U/L (38-126); Anion Gap 6 mmol/L (8-16); Aspartate Amino Transferase 230 U/L (17-59); Bilirubin,Total 3.7 mg/dL (0.2-1.3); Blood Urea Nitrogen 9 mg/dL (9-20); Calcium 8.4 mg/dL (8.4-10.2); Carbon Dioxide 31 mmol/L (22-30); Chloride 101 mmol/L (98-107); Estimated CRCL calculation 153 ml/min; Estimated Glomerular Filt Rate > 60; Glucose 105 mg/dL (65-110); Magnesium 2.2 mg/dL (1.6-2.3); Potassium 4.3 mmol/L (3.4-5.0); Sodium 138 mmol/L (137-145)
[2023-01-27] MEDS: LORATADINE 10 MG TABLET PO (08:51)
[2023-01-27] MEDS: FLUTICASONE PROPIONATE 0.05% NA SPR 16 GM BTL (*BKC) 2 SPRAY NASAL (08:52)
--- NOTE | 2023-01-27 11:57 | WPDANESEPPF ---
Anes - Initial Pre Proc Eval Procedure: Operation Date: 01/27/23 16:30 Proposed Procedures p Endoscopic Retro Cholangiopancreatogram - Blayne Jauregui MD Date/Time: 01/27/23 11:57 Surgeon: Fidelia Gonzalez DO Pre Op Diagnosis: Choledocholithiasis,Transaminitis,Nausea & Vomitin Patient Data Age: 37 Gender: M Height: 1.83 m Weight: 134 kg Last Vital Signs Temp 36.3 C L 01/27/23 06:00 Pulse 84 01/27/23 06:00 Resp 20 01/27/23 06:00 BP 129/83 01/27/23 06:00 Pulse Ox 97 01/27/23 06:00 O2 Del Method Room Air 01/26/23 20:00 FiO2 21 01/25/23 09:18 Allergies Allergy/AdvReac Type Severity Reaction Status Date / Time No Known Allergies Allergy Unknown Verified 01/24/23 10:58 Home Medications Medication Instructions Recorded Confirmed Type cetirizine 10 mg tablet (Zyrtec) 10 mg PO DAILY 07/01/22 01/24/23 History fluticasone propionate 50 2 spray intranasal DAILY 01/10/23 01/24/23 History mcg/actuation nasal spray,suspension Laboratory Tests 01/27/23 06:41 WBC 7.3 K/mm3 (4.5-10.0) RBC 4.85 M/mm3 (4.6-6.20) Hgb 15.4 g/dL (14.0-18.0) Hct 44.6 % (42.0-52.0) MCV 92.0 fl (80-100) MCH 31.8 pg (26-34) MCHC 34.5 g/dl (32-36) RDW 12.6 % (11.5-14.5) Plt Count 286 k/mm3 (150-375) MPV 9.7 fl (7.4-10.4) Immature Gran % (Auto) 0.8 H % (0-0.5) Neut % (Auto) 71.1 % (45.5-73.1) Lymph % (Auto) 18.0 L % (18.3-44.2) [place] % (Auto) 8.5 % (2.6-8.5) Eos % (Auto) 1.2 % (0-4.4) Baso % (Auto) 0.4 % (0.2-1.2) Lymph # (Auto) 1.31 K/mm3 (0.9-3.2) [place] # (Auto) 0.6 K/mm3 (0.1-0.6) Eos # (Auto) 0.1 K/mm3 (0-0.3) Baso # (Auto) 0.0 K/mm3 (0.0-0.1) Abs Immat Gran (auto) 0.06 H K/mm3 (0.00-0.031) Absolute Neuts (auto) 5.2 K/mm3 (1.3-6.7) Absolute Nucleated RBC 0.0 K/mm3 (0.0-0.012) Nucleated RBC % 0.0 % (0.0-0.2) Sodium 138 mmol/L (137-145) Potassium 4.3 mmol/L (3.4-5.0) Chloride 101 mmol/L (98-107) Carbon Dioxide 31 H mmol/L (22-30) Anion Gap 6 L mmol/L (8-16) BUN 9 mg/dL (9-20) Creatinine 0.80 mg/dL (0.7-1.3) Estim Creat Clear Calc 153 ml/min Estimated GFR > 60 (59 - ) Glucose 105 mg/dL (65-110) Calcium 8.4 mg/dL (8.4-10.2) Magnesium 2.2 mg/dL (1.6-2.3) Total Bilirubin 3.7 H mg/dL (0.2-1.3) AST 230 H U/L (17-59) ALT 523 H U/L (6-50) Alkaline Phosphatase 188 H U/L (38-126) Total Protein 8.0 g/dL (6.3-8.2) Albumin 4.1 g/dL (3.5-5.1) Patient hx anesthesia problems: none Family hx anesthesia problems: none Results Review: All pre-operative results and documents have been reviewed as part of the pre-operative evaluation. [facility] Past Medical History Medical History (Updated 01/25/23 @ 20:35 by Blayne Jauregui MD) Elevated liver enzymes GERD (gastroesophageal reflux disease) Gout Hepatic steatosis Noted on CT scan 01/24/2023. Nausea and vomiting in adult Seasonal allergies Upper abdominal pain Surgical History Surgical History (Updated 01/24/23 @ 16:04 by Diana Maldonado PA-C) History of cholecystectomy Family History Family History (Updated 01/24/23 @ 20:58 by Diana Maldonado PA-C) Other Family history non-contributory Social History Social History (Updated 01/24/23 @ 20:59 by Diana Maldonado PA-C) Social History: Surrogate medical decision maker: Jeanette Coker, spouse. Code status: Full code. Smoking status: Never smoker Alcohol use details: Rare alcohol use. Lack of Transportation: No Lack of Food: Never True Current Housing: I Have Housing Concerned About Future Housing: No Difficulty Paying Gas/Electric Bills: No Difficulty Paying for Meds: No Currently Unemployed: No Education: Associate Degree Difficulty w/ Childcare or Family Care: No Additional
--- NOTE | 2023-01-27 12:22 | PM.IMPN ---
Progress Note: A&P Assessment and Plan (1) Choledocholithiasis: Code(s): K80.50 - Calculus of bile duct without cholangitis or cholecystitis without obstruction Status: Acute Assessment and Plan: presented with low chest/left upper quadrant pain, nausea, vomiting, and dry heaves CT shows 2 stones in the common bile duct LFTs are elevated at AST/ALT 377/691, T. Bili 5.2 upon admission Currently AST/ALT 230/523, T bili 3.7 MRCP found no evidence of choledocholithiasis, diffuse fatty infiltration of liver and minimal Intrahepatic biliary dilation that could be related to prior cholecystectomy. ERCP planned for today GI consulted thank you for your help IV fluids continued Pain medications and antiemetics ordered (2) Transaminitis: Code(s): R74.01 - Elevation of levels of liver transaminase levels Status: Acute Assessment and Plan: LFTs are elevated at AST/ALT 377/691, T. Bili 5.2 upon admission related to stone blockage in the common bile duct Hep panel negative Continue to trend (3) Hepatic steatosis: Code(s): K76.0 - Fatty (change of) liver, not elsewhere classified Status: Acute Assessment and Plan: Seen on the CT Outpatient follow up if indicated Subjective Date/time seen: 01/27/23 12:22 Interval history: Patient's pain is much improved today and states that he has not had any nausea or abdominal pain since last night. He is planned to have ERCP today. Review of Systems Review of Systems: All systems reviewed & are unremarkable except as noted in HPI and below Exam Narrative: GENERAL: Comfortable, no acute distress HENMT: moist mucous membranes EYES: EOM intact b/l, scleral icterus NECK: no lymphadenopathy RESPIRATORY: clear to auscultation CARDIO: RRR GI: soft, nontender, bowel sounds present SKIN: no rashes, jaundice EXTREMITIES: no edema, redness or tenderness Objective Data Vital Signs Vital Signs: Vital Signs - 24 hr 01/26/23 14:00 01/26/23 21:47 01/26/23 20:00 Temperature 97.8 F 97.6 F Pulse Rate 72 79 Respiratory Rate 16 18 Blood Pressure 148/93 H 136/82 Pulse Oximetry 97 98 Oxygen Delivery Room Air 01/27/23 06:00 Temperature 97.4 F L Pulse Rate 84 Respiratory Rate 20 Blood Pressure 129/83 Pulse Oximetry 97 Oxygen Delivery Intake/Output Intake/Output: Intake & Output 01/24/23 01/25/23 01/26/23 01/27/23 23:59 23:59 23:59 23:59 Intake Total 2360 3060 4786 2440 Balance 2360 3060 4786 2440 Meds/Results Medications: Active Medications Generic Name Dose Route Start Last Admin Trade Name Freq PRN Reason Stop Dose Admin Fluticasone Propionate 2 spray 01/25/23 09:00 01/27/23 08:52 Fluticasone Propionate 0.05% Na Spr 16 Gm Btl (*Bkc) NASAL 2 spray DAILY RENATO Administration Hydromorphone HCl 0.5 mg 01/25/23 17:43 01/26/23 12:53 Hydromorphone Hcl Inj (*Crx) 1 Mg/Ml Syr IV PUSH 0.5 mg Q3H PRN Administration Pain 4-6 Hydromorphone HCl 1 mg 01/26/23 13:05 01/26/23 19:07 Hydromorphone Hcl Inj (*Crx) 1 Mg/Ml Syr IV PUSH 1 mg Q3H PRN Administration Pain Rated 7-10 Sodium Chloride 1,000 mls @ 125 mls/hr 01/24/23 13:45 01/27/23 08:51 Normal Saline Iv IV CONT 125 mls/hr .Q8H RENATO Administration Loratadine 10 mg 01/25/23 09:00 01/27/23 08:51 Loratadine 10 Mg Tablet PO 10 mg QAM RENATO Administration Ondansetron HCl 4 mg 01/24/23 13:44 01/26/23 08:32 Ondansetron Inj 4 Mg/2 Ml Vial IV PUSH 4 mg Q4H PRN Administration Nausea Radiology Results: ITS Impressions Chest X-Ray 01/24/23 11:45 IMPRESSION: No active cardiac pulmonary disease Status post cholecystectomy Chest/Abdomen/Pelvis CTA 01/24/23 13:13 IMPRESSION: No evidence of pulmonary embolism Status post cholecystectomy Choledocholithiasis Hepatic steatosis MRCP 01/25/23 19:08 Impression: No eviden
[2023-01-27] MEDS: ONDANSETRON INJ 4 MG/2 ML VIAL IV PUSH ×3 (14:27→23:34)
[2023-01-27] MEDS: LACTATED RINGERS 1,000 ML 150 ML IV CONT (14:28)
[2023-01-27] MEDS: INDOMETHACIN 50 MG SUPP.RECT RECTAL (15:04)
--- NOTE | 2023-01-27 17:31 | SUR.PHASEII ---
Reported to Dr. Raymond that patient stated his stomach felt like it was on fire . Per Dr. Raymond, its most likely from the bile and the procedure that he would put orders in to start Protonix. This was relayed to the floor nurse Rosalba as well.
[2023-01-27] MEDS: HYDROmorphone HCL INJ (*CRX) 1 MG/ML SYR IV PUSH ×5 (17:34→23:32)
[2023-01-27] MEDS: PANTOPRAZOLE SODIUM IV 40 MG VIAL IV PUSH (17:35)
[2023-01-27] MEDS: METOCLOPRAMIDE HCL INJ 10 MG/2 ML VIAL IV PUSH (19:47)
[2023-01-28] MEDS: HYDROmorphone HCL INJ (*CRX) 1 MG/ML SYR IV PUSH ×4 (01:36→07:54)
[2023-01-28] MEDS: PANTOPRAZOLE SODIUM IV 40 MG VIAL IV PUSH (01:36)
[2023-01-28] MEDS: SIMETHICONE 125 MG CHEW TAB PO (01:37)
[2023-01-28] MEDS: LORazepam INJ (*CRX) 2 MG/ML VIAL 1 MG IV PUSH (02:56)
[2023-01-28 02:58] VITALS: BP 145/83
[2023-01-28] MEDS: ONDANSETRON INJ 4 MG/2 ML VIAL IV PUSH ×3 (05:01→16:54)
[2023-01-28 06:00] VITALS: BP 155/89; PULSE 87; RESP 20; TEMP 36.1; O2SAT 98
[2023-01-28] MEDS: MAGNESIUM CITRATE 300 ML BTL 150 ML PO (06:11)
[2023-01-28 06:35] LABS: Basophils Percent Auto 0.1 % (0.2-1.2); Hematocrit 46.6 % (42.0-52.0); Hemoglobin 16.4 g/dL (14.0-18.0); Immature Granulocyte Absolute 0.13 K/mm3 (0.00-0.031); Immature Granulocyte Percent A 0.9 % (0-0.5); Lymphocytes Absolute Auto 0.77 K/mm3 (0.9-3.2); Mean Corpuscular HGB Conc 35.2 g/dl (32-36); Mean Platelet Volume 9.3 fl (7.4-10.4); Monocytes Absolute Auto 0.8 K/mm3 (0.1-0.6); Monocytes Percent Auto 5.5 % (2.6-8.5); Neutrophils Absolute Auto 13.5 K/mm3 (1.3-6.7); Neutrophils Percent Auto 88.5 % (45.5-73.1); Platelet Count Result 278 k/mm3 (150-375); Red Blood Count 5.12 M/mm3 (4.6-6.20); Red Cell Distribution Width 12.6 % (11.5-14.5); White Blood Count 15.3 K/mm3 (4.5-10.0)
[2023-01-28 06:53] LABS: Alanine Aminotransferase 620 U/L (6-50); Albumin Level 4.1 g/dL (3.5-5.1); Alkaline Phosphatase 224 U/L (38-126); Anion Gap 10 mmol/L (8-16); Aspartate Amino Transferase 365 U/L (17-59); Bilirubin,Total 5.5 mg/dL (0.2-1.3); Blood Urea Nitrogen 12 mg/dL (9-20); Calcium 8.4 mg/dL (8.4-10.2); Carbon Dioxide 28 mmol/L (22-30); Chloride 98 mmol/L (98-107); Estimated CRCL calculation 153 ml/min; Estimated Glomerular Filt Rate > 60; Glucose 142 mg/dL (65-110); Potassium 3.8 mmol/L (3.4-5.0); Sodium 136 mmol/L (137-145)
[2023-01-28 07:43] LABS: Lipase 6655 U/L (23-300)
[2023-01-28] MEDS: LORATADINE 10 MG TABLET PO (07:59)
[2023-01-28] MEDS: FLUTICASONE PROPIONATE 0.05% NA SPR 16 GM BTL (*BKC) 2 SPRAY NASAL (07:59)
--- NOTE | 2023-01-28 09:37 | P.PNAN_ITS ---
Anes - Prog Note Post-Op Date/Time: 01/28/23 09:37 Cardiovascular status: normal Respiratory status: normal Airway patency: baseline Mental status: baseline Post-Op hydration status: normal Vital Signs: Last Vital Signs Temp 97.0 F L 01/28/23 06:00 Pulse 87 01/28/23 06:00 Resp 20 01/28/23 06:00 BP 155/89 H 01/28/23 06:00 Pulse Ox 98 01/28/23 06:00 O2 Del Method Room Air 01/27/23 21:00 O2 Flow Rate 6 01/27/23 16:21 FiO2 21 01/27/23 20:00 Pain Score (VAS): 7-8 I/O: Intake & Output 01/27/23 01/28/23 01/28/23 23:59 07:59 15:59 Intake Total 1100 500 0 Balance 1100 500 0 Laboratory Tests 01/28/23 06:24 01/28/23 06:24 01/28/23 06:24 WBC 15.3 H RBC 5.12 Hgb 16.4 Hct 46.6 MCV 91.0 MCH 32.0 MCHC 35.2 RDW 12.6 Plt Count 278 MPV 9.3 Immature Gran % (Auto) 0.9 H Neut % (Auto) 88.5 H Lymph % (Auto) 5.0 L [place] % (Auto) 5.5 Eos % (Auto) 0.0 Baso % (Auto) 0.1 L Lymph # (Auto) 0.77 L [place] # (Auto) 0.8 H Eos # (Auto) 0.0 Baso # (Auto) 0.0 Abs Immat Gran (auto) 0.13 H Absolute Neuts (auto) 13.5 H Absolute Nucleated RBC 0.0 Nucleated RBC % 0.0 Sodium 136 L Potassium 3.8 Chloride 98 Carbon Dioxide 28 Anion Gap 10 BUN 12 Creatinine 0.80 Estim Creat Clear Calc 153 Estimated GFR > 60 Glucose 142 H Calcium 8.4 Total Bilirubin 5.5 H AST 365 H ALT 620 H Alkaline Phosphatase 224 H Total Protein 8.0 Albumin 4.1 Lipase 6655 H Post-procedural complaints: none Patient Feedback: Patient satisfied with anesthetic care.
[2023-01-28] MEDS: SODIUM CHLORIDE 0.9% IV 1,000 ML 100 ML IV CONT ×2 (09:45→20:09)
[2023-01-28] MEDS: HYDROmorphone HCL INJ (*CRX) 2 MG/ML VIAL 1.5 MG IV PUSH ×3 (10:14→14:49)
--- NOTE | 2023-01-28 11:20 | PM.IMPN ---
Progress Note: A&P Assessment and Plan (1) Choledocholithiasis: Code(s): K80.50 - Calculus of bile duct without cholangitis or cholecystitis without obstruction Status: Acute Assessment and Plan: presented with low chest/left upper quadrant pain, nausea, vomiting, and dry heaves CT shows 2 stones in the common bile duct LFTs are elevated at AST/ALT 377/691, T. Bili 5.2 upon admission Currently AST/ALT 365/620, T bili 5.5 MRCP found no evidence of choledocholithiasis, diffuse fatty infiltration of liver and minimal Intrahepatic biliary dilation that could be related to prior cholecystectomy. ERCP did not reveal any stone, debris or sludge, sphincterotomy performed GI consulted thank you for your help Pain medications and antiemetics ordered 01/28 Patient with worsening abdominal pain today, concern for obstruction. Will order CT abdomen pelvis. Lipase elevated to > 6000 IV fluids continued (2) Transaminitis: Code(s): R74.01 - Elevation of levels of liver transaminase levels Status: Acute Assessment and Plan: LFTs are elevated at AST/ALT 377/691, T. Bili 5.2 upon admission related to stone blockage in the common bile duct Hep panel negative Continue to trend (3) Hepatic steatosis: Code(s): K76.0 - Fatty (change of) liver, not elsewhere classified Status: Acute Assessment and Plan: Seen on the CT Outpatient follow up if indicated (4) Pancreatitis: Code(s): K85.90 - Acute pancreatitis without necrosis or infection, unspecified Status: Acute Assessment and Plan: 01/28/2023 patient with elevated lipase of 6655 Continuing IV fluids NPO diet trend lipase Analgesics as needed GI continue to follow. Subjective Date/time seen: 01/28/23 11:20 Interval history: Patient appears very uncomfortable. He states that he has been having a lot of pain he has had increased nausea and episode of emesis as well as complaints constipation. Patient describes his pain in the lower abdomen. He has not had a regular bowel movement in quite some time but states he had a very small hard bowel movement yesterday. Patient did have elevated lipase levels. Concern for possible obstruction due to patient's abdominal pain and nausea as well as pancreatitis. Going to get CT abdomen pelvis to rule out obstruction as well as continuing IV fluids in making patient NPO for possible pancreatitis. Elevated lipase could be due to recent ERCP. Review of Systems Review of Systems: All systems reviewed & are unremarkable except as noted in HPI and below Exam Narrative: GENERAL: Comfortable, no acute distress HENMT: moist mucous membranes EYES: EOM intact b/l, scleral icterus NECK: no lymphadenopathy RESPIRATORY: clear to auscultation CARDIO: RRR GI: soft, nontender, bowel sounds present SKIN: no rashes, jaundice EXTREMITIES: no edema, redness or tenderness Objective Data Vital Signs Vital Signs: Vital Signs - 24 hr 01/27/23 14:21 01/27/23 14:00 01/27/23 16:21 Temperature 97.7 F 97.5 F L Pulse Rate 82 76 103 H Respiratory Rate 18 22 H 21 H Blood Pressure 132/86 141/83 H 103/57 L Pulse Oximetry 97 97 99 Oxygen Delivery Room Air Simple Face Mask Oxygen Flow Rate 6 Fraction of Inspired Oxygen 01/27/23 16:31 01/27/23 16:41 01/27/23 16:51 Temperature Pulse Rate 108 H 95 89 Respiratory Rate 17 13 15 Blood Pressure 115/73 111/79 111/73 Pulse Oximetry 96 99 100 Oxygen Delivery Room Air Room Air Room Air Oxygen Flow Rate Fraction of Inspired Oxygen 01/27/23 17:01 01/27/23 17:11 01/27/23 17:30 Temperature 96.2 F L Pulse Rate 72 73 72 Respiratory Rate 15 20 14 Blood Pressure 120/73 126/90 137/93 H Pulse Oximetry 100 100 100 Oxygen Delivery Room Air Room Air Oxygen Flow Rate Fraction of Inspired Oxygen 01/27/23 20:00 01/27/23 21:00 01/27/23 21:44 Temperature 98
[2023-01-28] MEDS: LORazepam (*CRX) 0.5 MG TABLET PO ×2 (11:42→20:10)
[2023-01-28 14:00] VITALS: BP 153/101; PULSE 101; RESP 18; TEMP 36.6; O2SAT 93
--- NOTE | 2023-01-28 15:37 | WPDGIPROGNO ---
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, s/p sphincterotomy, did not find stones (2) Upper abdominal pain: Code(s): R10.10 - Upper abdominal pain, unspecified Status: Acute Assessment and Plan: more after ercp (3) Nausea and vomiting in adult: Code(s): R11.2 - Nausea with vomiting, unspecified Status: Acute Assessment and Plan: antiemetics (4) Elevated liver enzymes: Code(s): R74.8 - Abnormal levels of other serum enzymes Status: Acute Assessment and Plan: continue to monitor Subjective Date/time seen: 01/28/23 15:37 Interval history: ercp yesterday with 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 Now npo and is requiring iv pain meds Review of Systems Review of Systems: All systems reviewed & are unremarkable except as noted in HPI and below Exam Const: Other: in pain HENMT: Face/Nose/Sinus: Normal nares present Eyes: General: appearance normal, both eyes and all related structures Other: icteric sclerae Neck: Neck: supple Resp: Auscultation: clear to auscultation bilaterally Cardio: Rate: regular rate GI: Inspection: distended GI Palp: Yes Soft to palpation and Yes Tenderness to palpation present (GI) (diffuse, no rebound) Skin: General skin exam: normal color Neuro: Speech: normal speech Motor exam (neuro): 5/5 motor strength present throughout Extrem: General: normal to inspection Psych: Affect: normal affect Objective Data Vital Signs Vital Signs: Vital Signs - 24 hr 01/27/23 16:21 01/27/23 16:31 01/27/23 16:41 Temperature Pulse Rate 103 H 108 H 95 Respiratory Rate 21 H 17 13 Blood Pressure 103/57 L 115/73 111/79 Pulse Oximetry 99 96 99 Oxygen Delivery Simple Face Mask Room Air Room Air Oxygen Flow Rate 6 Fraction of Inspired Oxygen 01/27/23 16:51 01/27/23 17:01 01/27/23 17:11 Temperature Pulse Rate 89 72 73 Respiratory Rate 15 15 20 Blood Pressure 111/73 120/73 126/90 Pulse Oximetry 100 100 100 Oxygen Delivery Room Air Room Air Room Air Oxygen Flow Rate Fraction of Inspired Oxygen 01/27/23 17:30 01/27/23 20:00 01/27/23 21:00 Temperature 96.2 F L Pulse Rate 72 72 Respiratory Rate 14 14 Blood Pressure 137/93 H Pulse Oximetry 100 100 99 Oxygen Delivery Room Air Room Air Oxygen Flow Rate Fraction of Inspired Oxygen 21 01/27/23 21:44 01/28/23 02:58 01/28/23 06:00 Temperature 98.1 F 97.0 F L Pulse Rate 70 87 Respiratory Rate 18 20 Blood Pressure 151/79 H 145/83 H 155/89 H Pulse Oximetry 98 98 Oxygen Delivery Oxygen Flow Rate Fraction of Inspired Oxygen 01/28/23 08:00 Temperature Pulse Rate Respiratory Rate Blood Pressure Pulse Oximetry Oxygen Delivery Room Air Oxygen Flow Rate Fraction of Inspired Oxygen Intake/Output Intake/Output: Intake & Output 01/25/23 01/26/23 01/27/23 01/28/23 23:59 23:59 23:59 23:59 Intake Total 3060 4786 3540 1500 Balance 3060 4786 3540 1500 Meds/Results Medications: Active Medications Generic Name Dose Route Start Last Admin Trade Name Freq PRN Reason Stop Dose Admin Fluticasone Propionate 2 spray 01/25/23 09:00 01/28/23 07:59 Fluticasone Propionate 0.05% Na Spr 16 Gm Btl (*Bkc) NASAL 2 spray DAILY RENATO Administration Hydromorphone HCl 2 mg 01/28/23 14:54 Hydromorphone Hcl Inj (*Crx) 2 Mg/Ml Vial IV PUSH Q2H PRN Pain Rated 7-10 Hydromorphone HCl 1 mg 01/28/23 14:55 Hydromorphone Hcl Inj
[2023-01-28] MEDS: HYDROmorphone HCL INJ (*CRX) 2 MG/ML VIAL IV PUSH ×4 (16:53→22:13)
[2023-01-28 17:04] VITALS: BP 142/92
[2023-01-28 20:00] VITALS: PULSE 101; RESP 18; O2SAT 93
[2023-01-28 21:38] VITALS: BP 148/91; PULSE 103; RESP 20; TEMP 36.4; O2SAT 94
[2023-01-28] MEDS: FAMOTIDINE 20 MG/2 ML VIAL IV PUSH (22:13)
[2023-01-29] VITALS (7 sets, daily range): BP systolic 133–159; BP diastolic 80–104; PULSE 115–134; RESP 20–24; TEMP 36.3–36.8; O2SAT 93–98
[2023-01-29] MEDS: HYDROmorphone HCL INJ (*CRX) 2 MG/ML VIAL IV PUSH ×11 (00:12→21:47)
[2023-01-29] MEDS: LORazepam (*CRX) 0.5 MG TABLET PO ×3 (03:30→21:04)
[2023-01-29 05:51] LABS: Basophils Absolute Auto 0.1 K/mm3 (0.0-0.1); Basophils Percent Auto 0.3 % (0.2-1.2); Eosinophils Absolute Auto 0.1 K/mm3 (0-0.3); Eosinophils Percent Auto 0.4 % (0-4.4); Hematocrit 48.9 % (42.0-52.0); Hemoglobin 16.9 g/dL (14.0-18.0); Immature Granulocyte Absolute 0.26 K/mm3 (0.00-0.031); Immature Granulocyte Percent A 0.9 % (0-0.5); Lymphocytes Absolute Auto 0.89 K/mm3 (0.9-3.2); Lymphocytes Percent Auto 3.2 % (18.3-44.2); Mean Corpuscular HGB Conc 34.6 g/dl (32-36); Mean Corpuscular Hemoglobin 31.9 pg (26-34); Mean Corpuscular Volume 92.3 fl (80-100); Mean Platelet Volume 9.9 fl (7.4-10.4); Monocytes Absolute Auto 1.5 K/mm3 (0.1-0.6); Monocytes Percent Auto 5.4 % (2.6-8.5); Neutrophils Absolute Auto 24.9 K/mm3 (1.3-6.7); Neutrophils Percent Auto 89.8 % (45.5-73.1); Platelet Count Result 268 k/mm3 (150-375); White Blood Count 27.7 K/mm3 (4.5-10.0)
[2023-01-29 06:08] LABS: Alanine Aminotransferase 361 U/L (6-50); Albumin Level 3.7 g/dL (3.5-5.1); Alkaline Phosphatase 180 U/L (38-126); Anion Gap 8 mmol/L (8-16); Aspartate Amino Transferase 98 U/L (17-59); Bilirubin,Total 2.8 mg/dL (0.2-1.3); Blood Urea Nitrogen 14 mg/dL (9-20); Calcium 7.5 mg/dL (8.4-10.2); Carbon Dioxide 26 mmol/L (22-30); Chloride 100 mmol/L (98-107); Estimated CRCL calculation 199 ml/min; Estimated Glomerular Filt Rate > 60; Glucose 122 mg/dL (65-110); Sodium 134 mmol/L (137-145)
[2023-01-29] MEDS: SODIUM CHLORIDE 0.9% IV 1,000 ML 100 ML IV CONT ×2 (06:36→16:36)
[2023-01-29 07:33] LABS: Lipase 5831 U/L (23-300)
[2023-01-29] MEDS: LORATADINE 10 MG TABLET PO (08:37)
[2023-01-29] MEDS: FAMOTIDINE 20 MG/2 ML VIAL IV PUSH ×2 (08:38→19:48)
[2023-01-29] MEDS: FLUTICASONE PROPIONATE 0.05% NA SPR 16 GM BTL (*BKC) 2 SPRAY NASAL (08:38)
--- NOTE | 2023-01-29 15:06 | P.PNIM_ITS ---
Progress Note: A&P Assessment and Plan (1) Choledocholithiasis: Code(s): K80.50 - Calculus of bile duct without cholangitis or cholecystitis without obstruction Status: Acute Assessment and Plan: * presented with low chest/left upper quadrant pain, nausea, vomiting, and dry heaves * CT shows 2 stones in the common bile duct * LFTs are elevated at AST/ALT 377/691, T. Bili 5.2 upon admission * Currently AST/ALT 98/361, T bili 2.8 * MRCP found no evidence of choledocholithiasis, diffuse fatty infiltration of liver and minimal Intrahepatic biliary dilation that could be related to prior cholecystectomy. * ERCP did not reveal any stone, debris or sludge, sphincterotomy performed * GI consulted thank you for your help * Pain medications and antiemetics ordered * 01/28 Patient with worsening abdominal pain today, concern for obstruction. * CT abdomen and pelvis showing acute pancreatitis. (2) Pancreatitis: Code(s): K85.90 - Acute pancreatitis without necrosis or infection, unspecified Status: Acute Assessment and Plan: 01/28/2023 patient with elevated lipase of 6655 * Continuing IV fluids * NPO diet * Lipase trending down. * Tylenol held and added IV ibuprofen and IV Dilaudid for pain. Will wean down once he is not NPO. * GI continue to follow. (3) Transaminitis: Code(s): R74.01 - Elevation of levels of liver transaminase levels Status: Acute Assessment and Plan: * LFTs are elevated at AST/ALT 377/691, T. Bili 5.2 upon admission * related to stone blockage in the common bile duct * Hep panel negative * Continue to trend (4) Hepatic steatosis: Code(s): K76.0 - Fatty (change of) liver, not elsewhere classified Status: Acute Assessment and Plan: * Seen on the CT * Outpatient follow up if indicated Subjective Date/time seen: 01/29/23 15:06 Interval history: Patient continues to have significant amount of pain. Patient is requiring IV Dilaudid every 2 hours scheduled. Added IV ibuprofen. Patient is on Pepcid to prevent GI bleed. Did not had Tylenol due to patient's elevated LFTs and bilirubin. Monitor renal function. Patient's lower abdominal pain is feeling better today but now having right upper to epigastric abdominal pain. He continues on IV fluids. Patient's white count is elevated 27.7 today. This is likely due to acute pancreatitis. Will order UA and chest x-ray To rule out other causes of infection. He has also had an increased heart rate and elevated blood pressure. Review of Systems Review of Systems: All systems reviewed & are unremarkable except as noted in HPI and below Exam Narrative: GENERAL: Comfortable, no acute distress HENMT: moist mucous membranes EYES: EOM intact b/l NECK: no lymphadenopathy RESPIRATORY: clear to auscultation CARDIO: RRR GI: soft, nontender, bowel sounds present SKIN: no rashes EXTREMITIES: no edema, redness or tenderness Objective Data Vital Signs Vital Signs: Vital Signs - 24 hr 01/28/23 17:04 01/28/23 20:00 01/28/23 21:38 Temperature 97.6 F Pulse Rate 101 H 103 H Respiratory Rate 18 20 Blood Pressure 142/92 H 148/91 H Pulse Oximetry 93 94 Oxygen Delivery Room Air Fraction of Inspired Oxygen 21
--- NOTE | 2023-01-29 15:06 | PM.IMPN ---
Progress Note: A&P Assessment and Plan (1) Choledocholithiasis: Code(s): K80.50 - Calculus of bile duct without cholangitis or cholecystitis without obstruction Status: Acute Assessment and Plan: presented with low chest/left upper quadrant pain, nausea, vomiting, and dry heaves CT shows 2 stones in the common bile duct LFTs are elevated at AST/ALT 377/691, T. Bili 5.2 upon admission Currently AST/ALT 98/361, T bili 2.8 MRCP found no evidence of choledocholithiasis, diffuse fatty infiltration of liver and minimal Intrahepatic biliary dilation that could be related to prior cholecystectomy. ERCP did not reveal any stone, debris or sludge, sphincterotomy performed GI consulted thank you for your help Pain medications and antiemetics ordered 01/28 Patient with worsening abdominal pain today, concern for obstruction. CT abdomen and pelvis showing acute pancreatitis. (2) Pancreatitis: Code(s): K85.90 - Acute pancreatitis without necrosis or infection, unspecified Status: Acute Assessment and Plan: 01/28/2023 patient with elevated lipase of 6655 Continuing IV fluids NPO diet Lipase trending down. Tylenol held and added IV ibuprofen and IV Dilaudid for pain. Will wean down once he is not NPO. GI continue to follow. (3) Transaminitis: Code(s): R74.01 - Elevation of levels of liver transaminase levels Status: Acute Assessment and Plan: LFTs are elevated at AST/ALT 377/691, T. Bili 5.2 upon admission related to stone blockage in the common bile duct Hep panel negative Continue to trend (4) Hepatic steatosis: Code(s): K76.0 - Fatty (change of) liver, not elsewhere classified Status: Acute Assessment and Plan: Seen on the CT Outpatient follow up if indicated Subjective Date/time seen: 01/29/23 15:06 Interval history: Patient continues to have significant amount of pain. Patient is requiring IV Dilaudid every 2 hours scheduled. Added IV ibuprofen. Patient is on Pepcid to prevent GI bleed. Did not had Tylenol due to patient's elevated LFTs and bilirubin. Monitor renal function. Patient's lower abdominal pain is feeling better today but now having right upper to epigastric abdominal pain. He continues on IV fluids. Patient's white count is elevated 27.7 today. This is likely due to acute pancreatitis. Will order UA and chest x-ray To rule out other causes of infection. He has also had an increased heart rate and elevated blood pressure. Review of Systems Review of Systems: All systems reviewed & are unremarkable except as noted in HPI and below Exam Narrative: GENERAL: Comfortable, no acute distress HENMT: moist mucous membranes EYES: EOM intact b/l NECK: no lymphadenopathy RESPIRATORY: clear to auscultation CARDIO: RRR GI: soft, nontender, bowel sounds present SKIN: no rashes EXTREMITIES: no edema, redness or tenderness Objective Data Vital Signs Vital Signs: Vital Signs - 24 hr 01/28/23 17:04 01/28/23 20:00 01/28/23 21:38 Temperature 97.6 F Pulse Rate 101 H 103 H Respiratory Rate 18 20 Blood Pressure 142/92 H 148/91 H Pulse Oximetry 93 94 Oxygen Delivery Room Air Fraction of Inspired Oxygen 21 01/29/23 06:00 01/29/23 08:30 01/29/23 14:00 Temperature 97.3 F L 98.3 F Pulse Rate 120 H 131 H Respiratory Rate 24 H 20 Blood Pressure 159/80 H 138/104 H Pulse Oximetry 93 94 Oxygen Delivery Room Air Fraction of Inspired Oxygen Intake/Output Intake/Output: Intake & Output 01/26/23 01/27/23 01/28/23 01/29/23 23:59 23:59 23:59 23:59 Intake Total 4786 3540 2740 1000 Balance 4786 3540 2740 1000 Meds/Results Medications: Active Medications Generic Name Dose Route Start Last Admin Trade Name Freq PRN Reason Stop Dose Admin Famotidine 20 mg 01/28/23 21:20 01/29/23 08:38 Famotidine 20 Mg/2 Ml Vial IV PUSH 20
[2023-01-29] MEDS: METOPROLOL TARTRATE INJ 5 MG/5 ML VIAL IV PUSH ×2 (15:14→21:57)
[2023-01-29 17:12] LABS: Appearance Urine Clear (Clear); Bacteria Urine None Seen /hpf; Bilirubin Urine 2+ (Negative); Blood Urine 2+ (Negative); Color Urine Orange (Yellow); Glucose Urine UA Negative (Negative); Ketones Urine Negative (Negative); Leukocyte Esterase Ur Trace LEU/UL (Negative); Need Manual Microscopic Reviewed; Nitrate Urine Positive (Negative); Non Pathogenic Casts 0-2; Protein Urine 2+ mg/dL (Negative); Specific Grav Ur 1.033 (1.001-1.035); Squamous Epithelial Cell Urine Occasional /hpf (Few); WBC Urine 0-5 /hpf; pH Urine 5.5 (5.0-9.0)
[2023-01-29 17:13] LABS: Add Urine Microscopic? YES
--- NOTE | 2023-01-29 17:23 | WPDGIPROGNO ---
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, s/p sphincterotomy, did not find stones noted today that bili is coming down leukocytosis could be from pancreatitis- monitor (2) Upper abdominal pain: Code(s): R10.10 - Upper abdominal pain, unspecified Status: Acute Assessment and Plan: worsened after ercp pain control will assess if tomorrow can start cl diet (3) Nausea and vomiting in adult: Code(s): R11.2 - Nausea with vomiting, unspecified Status: Acute Assessment and Plan: antiemetics (4) Elevated liver enzymes: Code(s): R74.8 - Abnormal levels of other serum enzymes Status: Acute Assessment and Plan: continue to monitor, bili down today Subjective Date/time seen: 01/29/23 17:23 Interval history: slightly better, still requiring iv pain meds but improving, no vomiting. Having ice chips Review of Systems Review of Systems: All systems reviewed & are unremarkable except as noted in HPI and below Exam Const: Other: less pain today HENMT: Face/Nose/Sinus: Normal nares present Eyes: General: appearance normal, both eyes and all related structures Neck: Neck: supple Resp: Auscultation: clear to auscultation bilaterally Cardio: Rate: regular rate GI: Inspection: distended GI Palp: Yes Soft to palpation and Yes Tenderness to palpation present (GI) (diffuse, no rebound) Skin: General skin exam: normal color Neuro: Speech: normal speech Motor exam (neuro): 5/5 motor strength present throughout Extrem: General: normal to inspection Psych: Affect: normal affect Objective Data Vital Signs Vital Signs: Vital Signs - 24 hr 01/28/23 20:00 01/28/23 21:38 01/29/23 06:00 Temperature 97.6 F 97.3 F L Pulse Rate 101 H 103 H 120 H Respiratory Rate 18 20 24 H Blood Pressure 148/91 H 159/80 H Pulse Oximetry 93 94 93 Oxygen Delivery Room Air Fraction of Inspired Oxygen 21 01/29/23 08:30 01/29/23 14:00 01/29/23 15:14 Temperature 98.3 F Pulse Rate 131 H 134 H Respiratory Rate 20 Blood Pressure 138/104 H Pulse Oximetry 94 Oxygen Delivery Room Air Fraction of Inspired Oxygen 01/29/23 15:15 Temperature 98.3 F Pulse Rate 134 H Respiratory Rate 20 Blood Pressure 137/81 Pulse Oximetry 96 Oxygen Delivery Fraction of Inspired Oxygen Intake/Output Intake/Output: Intake & Output 01/26/23 01/27/23 01/28/23 01/29/23 23:59 23:59 23:59 23:59 Intake Total 4786 3540 2740 1999 Balance 4786 3540 2740 1999 Meds/Results Medications: Active Medications Generic Name Dose Route Start Last Admin Trade Name Freq PRN Reason Stop Dose Admin Famotidine 20 mg 01/28/23 21:20 01/29/23 08:38 Famotidine 20 Mg/2 Ml Vial IV PUSH 20 mg Q12HR RENATO Administration Fluticasone Propionate 2 spray 01/25/23 09:00 01/29/23 08:38 Fluticasone Propionate 0.05% Na Spr 16 Gm Btl (*Bkc) NASAL 2 spray DAILY RENATO Administration Hydromorphone HCl 2 mg 01/28/23 14:54 01/29/23 15:13 Hydromorphone Hcl Inj (*Crx) 2 Mg/Ml Vial IV PUSH 2 mg Q2H PRN Administration Pain Rated 7-10 Hydromorphone HCl 1 mg 01/28/23 14:55 Hydromorphone Hcl Inj (*Crx) 1 Mg/Ml Syr IV PUSH Q2H PRN Pain 4-6 Sodium Chloride 1,000 mls @ 100 mls/hr 01/28/23 07:45 01/29/23 16:36 Normal Saline Iv IV CONT 100 mls/hr .Q10H RENATO Administration Ibuprofen 400 mg/ Sodium 104 mls @ 200 mls/hr 01/29/23 15:11 Chloride IVPB Q6H PRN Pain Rated 1-6 Loratadine 10 mg 01/25/23 09:00 01/29/23 08:37 Loratadin
[2023-01-29] MEDS: IBUPROFEN IV 400 MG in SODIUM CHLORIDE 0.9% IV 100 ML 200 MG IVPB (22:12)
[2023-01-30] VITALS (12 sets, daily range): BP systolic 151–172; BP diastolic 79–98; PULSE 95–160; RESP 13–20; TEMP 35.2–36.9; O2SAT 94–98
[2023-01-30] MEDS: traMADol HCL (*CRX) 25 MG TABLET PO ×2 (00:05→14:26)
[2023-01-30] MEDS: HYDROmorphone HCL INJ (*CRX) 2 MG/ML VIAL IV PUSH ×8 (01:42→22:35)
[2023-01-30] MEDS: LORazepam (*CRX) 0.5 MG TABLET PO ×4 (03:13→22:34)
[2023-01-30] MEDS: SODIUM CHLORIDE 0.9% IV 1,000 ML 100 ML IV CONT (03:13)
--- NOTE | 2023-01-30 03:35 | PC.NURSE ---
Pt has been calling for pain medication every 1.5 hours or sooner. Pt states that the dilaudid is the only thing that works for his pain, and the 1mg lasts 1 hour and the 2 mg lasts 1.5 hours. Dilaudid is currently available to pt at 2 mg Q2 hours. Pt is constantly asking what else he can have and is very anxious. Pt is also getting ativan 0.5 mg available Q6. Pt states all his pain his in his abdomen and back. Pt is very restless and has not slept this shift.
[2023-01-30] MEDS: METOPROLOL TARTRATE INJ 5 MG/5 ML VIAL IV PUSH ×2 (06:11→14:26)
[2023-01-30] MEDS: ONDANSETRON INJ 4 MG/2 ML VIAL IV PUSH ×3 (06:15→20:20)
[2023-01-30 06:18] LABS: Basophils Absolute Auto 0.1 K/mm3 (0.0-0.1); Basophils Percent Auto 0.4 % (0.2-1.2); Hematocrit 45.6 % (42.0-52.0); Hemoglobin 15.4 g/dL (14.0-18.0); Immature Granulocyte Absolute 0.18 K/mm3 (0.00-0.031); Immature Granulocyte Percent A 0.7 % (0-0.5); Lymphocytes Absolute Auto 1.19 K/mm3 (0.9-3.2); Lymphocytes Percent Auto 4.7 % (18.3-44.2); Mean Corpuscular HGB Conc 33.8 g/dl (32-36); Mean Corpuscular Volume 94.8 fl (80-100); Mean Platelet Volume 10.2 fl (7.4-10.4); Monocytes Absolute Auto 1.6 K/mm3 (0.1-0.6); Monocytes Percent Auto 6.4 % (2.6-8.5); Neutrophils Absolute Auto 22.1 K/mm3 (1.3-6.7); Neutrophils Percent Auto 87.8 % (45.5-73.1); Platelet Count Result 238 k/mm3 (150-375); Red Blood Count 4.81 M/mm3 (4.6-6.20); Red Cell Distribution Width 13.2 % (11.5-14.5); White Blood Count 25.2 K/mm3 (4.5-10.0)
[2023-01-30 06:41] LABS: Alanine Aminotransferase 183 U/L (6-50); Albumin Level 3.3 g/dL (3.5-5.1); Alkaline Phosphatase 136 U/L (38-126); Anion Gap 6 mmol/L (8-16); Aspartate Amino Transferase 53 U/L (17-59); Bilirubin,Total 2.7 mg/dL (0.2-1.3); Blood Urea Nitrogen 17 mg/dL (9-20); Calcium 7.6 mg/dL (8.4-10.2); Carbon Dioxide 28 mmol/L (22-30); Chloride 99 mmol/L (98-107); Cholesterol 151 mg/dL (0-200); Estimated CRCL calculation 173 ml/min; Estimated Glomerular Filt Rate > 60; Glucose 124 mg/dL (65-110); HDL Direct 16 mg/dL; Potassium 3.8 mmol/L (3.4-5.0); Sodium 133 mmol/L (137-145); Triglycerides 197 mg/dL (<150)
[2023-01-30 06:45] LABS: LDL Cholesterol Direct 65 mg/dL
[2023-01-30 07:09] LABS: Lipase 2990 U/L (23-300)
[2023-01-30 07:11] LABS: Procalcitonin 2.9 ng/mL
[2023-01-30] MEDS: LORATADINE 10 MG TABLET PO (08:34)
[2023-01-30] MEDS: FLUTICASONE PROPIONATE 0.05% NA SPR 16 GM BTL (*BKC) 2 SPRAY NASAL (08:34)
[2023-01-30] MEDS: FAMOTIDINE 20 MG/2 ML VIAL IV PUSH ×2 (08:34→20:11)
[2023-01-30] MEDS: IBUPROFEN IV 400 MG in SODIUM CHLORIDE 0.9% IV 100 ML 200 MG IVPB (09:55)
[2023-01-30] MEDS: SIMETHICONE 125 MG CHEW TAB PO ×3 (12:19→20:11)
[2023-01-30] MEDS: polyethylene glycoL 3350 17 GM POWD.PACK PO ×2 (12:19→16:04)
--- NOTE | 2023-01-30 13:43 | P.PNIM_ITS ---
Progress Note: A&P Assessment and Plan (1) Choledocholithiasis: Code(s): K80.50 - Calculus of bile duct without cholangitis or cholecystitis without obstruction Status: Acute Assessment and Plan: * presented with low chest/left upper quadrant pain, nausea, vomiting, and dry heaves * CT shows 2 stones in the common bile duct * LFTs are elevated at AST/ALT 377/691, T. Bili 5.2 upon admission * Currently AST/ALT 53/183, T bili 2.7 * MRCP found no evidence of choledocholithiasis, diffuse fatty infiltration of liver and minimal Intrahepatic biliary dilation that could be related to prior cholecystectomy. * ERCP did not reveal any stone, debris or sludge, sphincterotomy performed * GI consulted thank you for your help * Pain medications and antiemetics ordered * 01/28 Patient with worsening abdominal pain today, concern for obstruction. * CT abdomen and pelvis showing acute pancreatitis. (2) Pancreatitis: Code(s): K85.90 - Acute pancreatitis without necrosis or infection, unspecified Status: Acute Assessment and Plan: 01/28/2023 patient with elevated lipase of 6655 * Continuing IV fluids * NPO diet * Lipase trending down. * Tylenol held and added IV ibuprofen and IV Dilaudid for pain. Will wean down once he is not NPO. * GI continue to follow. (3) Transaminitis: Code(s): R74.01 - Elevation of levels of liver transaminase levels Status: Acute Assessment and Plan: * LFTs are elevated at AST/ALT 377/691, T. Bili 5.2 upon admission * related to stone blockage in the common bile duct * Hep panel negative * Continue to trend (4) Hepatic steatosis: Code(s): K76.0 - Fatty (change of) liver, not elsewhere classified Status: Acute Assessment and Plan: * Seen on the CT * Outpatient follow up if indicated Subjective Date/time seen: 01/30/23 13:43 Interval history: Pt continues to complain of pain. He is having lower abdominal pain that is likely constipation related. Patient is taking Dilaudid 2 mg every 2 hours on scheduled and states that this is not helping his pain. It was explained to the patient that the more delighted he takes the worst the pain is going to get because the more constipation he is going to have. Patient no longer has right upper quadrant or epigastric pain. Patient was started on MiraLax and will be given a enema. Discussed with the patient that it is not appropriate to increase his Dilaudid anymore and that he should utilize his tramadol and ibuprofen. Review of Systems Review of Systems: All systems reviewed & are unremarkable except as noted in HPI and below Exam Narrative: GENERAL: Comfortable, no acute distress HENMT: moist mucous membranes EYES: EOM intact b/l NECK: no lymphadenopathy RESPIRATORY: clear to auscultation CARDIO: RRR GI: soft, Mildly tender lower abdominal pain, bowel sounds present SKIN: no rashes EXTREMITIES: no edema, redness or tenderness Objective Data Vital Signs Vital Signs: Vital Signs - 24 hr 01/29/23 14:00 01/29/23 15:14 01/29/23 15:15 Temperature 98.3 F 98.3 F Pulse Rate 131 H 134 H 134 H Respiratory Rate 20 20 Blood Pressure 138/104 H 137/81 Pulse Oximetry 94 96 Oxygen Delivery 01/29/23 16:00 01/29/23
--- NOTE | 2023-01-30 13:43 | PM.IMPN ---
Progress Note: A&P Assessment and Plan (1) Choledocholithiasis: Code(s): K80.50 - Calculus of bile duct without cholangitis or cholecystitis without obstruction Status: Acute Assessment and Plan: presented with low chest/left upper quadrant pain, nausea, vomiting, and dry heaves CT shows 2 stones in the common bile duct LFTs are elevated at AST/ALT 377/691, T. Bili 5.2 upon admission Currently AST/ALT 53/183, T bili 2.7 MRCP found no evidence of choledocholithiasis, diffuse fatty infiltration of liver and minimal Intrahepatic biliary dilation that could be related to prior cholecystectomy. ERCP did not reveal any stone, debris or sludge, sphincterotomy performed GI consulted thank you for your help Pain medications and antiemetics ordered 01/28 Patient with worsening abdominal pain today, concern for obstruction. CT abdomen and pelvis showing acute pancreatitis. (2) Pancreatitis: Code(s): K85.90 - Acute pancreatitis without necrosis or infection, unspecified Status: Acute Assessment and Plan: 01/28/2023 patient with elevated lipase of 6655 Continuing IV fluids NPO diet Lipase trending down. Tylenol held and added IV ibuprofen and IV Dilaudid for pain. Will wean down once he is not NPO. GI continue to follow. (3) Transaminitis: Code(s): R74.01 - Elevation of levels of liver transaminase levels Status: Acute Assessment and Plan: LFTs are elevated at AST/ALT 377/691, T. Bili 5.2 upon admission related to stone blockage in the common bile duct Hep panel negative Continue to trend (4) Hepatic steatosis: Code(s): K76.0 - Fatty (change of) liver, not elsewhere classified Status: Acute Assessment and Plan: Seen on the CT Outpatient follow up if indicated Subjective Date/time seen: 01/30/23 13:43 Interval history: Pt continues to complain of pain. He is having lower abdominal pain that is likely constipation related. Patient is taking Dilaudid 2 mg every 2 hours on scheduled and states that this is not helping his pain. It was explained to the patient that the more delighted he takes the worst the pain is going to get because the more constipation he is going to have. Patient no longer has right upper quadrant or epigastric pain. Patient was started on MiraLax and will be given a enema. Discussed with the patient that it is not appropriate to increase his Dilaudid anymore and that he should utilize his tramadol and ibuprofen. Review of Systems Review of Systems: All systems reviewed & are unremarkable except as noted in HPI and below Exam Narrative: GENERAL: Comfortable, no acute distress HENMT: moist mucous membranes EYES: EOM intact b/l NECK: no lymphadenopathy RESPIRATORY: clear to auscultation CARDIO: RRR GI: soft, Mildly tender lower abdominal pain, bowel sounds present SKIN: no rashes EXTREMITIES: no edema, redness or tenderness Objective Data Vital Signs Vital Signs: Vital Signs - 24 hr 01/29/23 14:00 01/29/23 15:14 01/29/23 15:15 Temperature 98.3 F 98.3 F Pulse Rate 131 H 134 H 134 H Respiratory Rate 20 20 Blood Pressure 138/104 H 137/81 Pulse Oximetry 94 96 Oxygen Delivery 01/29/23 16:00 01/29/23 20:34 01/29/23 20:00 Temperature 97.9 F Pulse Rate 115 H 130 H 129 H Respiratory Rate 22 H Blood Pressure 133/96 H Pulse Oximetry 98 Oxygen Delivery 01/30/23 00:19 01/30/23 00:00 01/30/23 04:00 Temperature 95.3 F L Pulse Rate 116 H 110 H 119 H Respiratory Rate 16 Blood Pressure 155/98 H Pulse Oximetry 94 Oxygen Delivery 01/30/23 06:00 01/30/23 08:00 01/30/23 13:38 Temperature 97.1 F L 97.3 F L Pulse Rate 95 104 H Respiratory Rate 18 20 Blood Pressure 172/96 H 162/86 H Pulse Oximetry 95 98 Oxygen Delivery Room Air 01/30/23 08:00 01/30/23 12:00 Temperature Pulse Rate 120 H 124 H Resp
--- NOTE | 2023-01-30 14:34 | WPDGIPROGNO ---
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, s/p sphincterotomy, did not find stones and bili coming down leukocytosis could be from pancreatitis- monitor (2) Upper abdominal pain: Code(s): R10.10 - Upper abdominal pain, unspecified Status: Acute Assessment and Plan: today is better pain meds as needed miralax for constipation (3) Nausea and vomiting in adult: Code(s): R11.2 - Nausea with vomiting, unspecified Status: Acute Assessment and Plan: antiemetics better (4) Elevated liver enzymes: Code(s): R74.8 - Abnormal levels of other serum enzymes Status: Acute Assessment and Plan: continue to monitor, bili down today Subjective Date/time seen: 01/30/23 14:34 Interval history: slowly feeling better, less pain, no vomiting. Still constipation and just took miralax Review of Systems Review of Systems: All systems reviewed & are unremarkable except as noted in HPI and below Exam Const: Other: less pain today HENMT: Face/Nose/Sinus: Normal nares present Eyes: General: appearance normal, both eyes and all related structures Neck: Neck: supple Resp: Auscultation: clear to auscultation bilaterally Cardio: Rate: regular rate GI: GI Palp: Yes Soft to palpation and Yes Tenderness to palpation present (GI) (less tender and less distended, no rebound) Skin: General skin exam: normal color Neuro: Speech: normal speech Motor exam (neuro): 5/5 motor strength present throughout Extrem: General: normal to inspection Psych: Affect: normal affect Objective Data Vital Signs Vital Signs: Vital Signs - 24 hr 01/29/23 15:14 01/29/23 15:15 01/29/23 16:00 Temperature 98.3 F Pulse Rate 134 H 134 H 115 H Respiratory Rate 20 Blood Pressure 137/81 Pulse Oximetry 96 Oxygen Delivery 01/29/23 20:34 01/29/23 20:00 01/30/23 00:19 Temperature 97.9 F 95.3 F L Pulse Rate 130 H 129 H 116 H Respiratory Rate 22 H 16 Blood Pressure 133/96 H 155/98 H Pulse Oximetry 98 94 Oxygen Delivery 01/30/23 00:00 01/30/23 04:00 01/30/23 06:00 Temperature 97.1 F L Pulse Rate 110 H 119 H 95 Respiratory Rate 18 Blood Pressure 172/96 H Pulse Oximetry 95 Oxygen Delivery 01/30/23 08:00 01/30/23 13:38 01/30/23 08:00 Temperature 97.3 F L Pulse Rate 104 H 120 H Respiratory Rate 20 Blood Pressure 162/86 H Pulse Oximetry 98 Oxygen Delivery Room Air 01/30/23 12:00 01/30/23 14:26 Temperature Pulse Rate 124 H 160 H Respiratory Rate Blood Pressure Pulse Oximetry Oxygen Delivery Intake/Output Intake/Output: Intake & Output 01/27/23 01/28/23 01/29/23 01/30/23 23:59 23:59 23:59 23:59 Intake Total 3540 2740 1999 1103 Balance 3540 2740 1999 110 Meds/Results Medications: Active Medications Generic Name Dose Route Start Last Admin Trade Name Freq PRN Reason Stop Dose Admin Bisacodyl 5 mg 01/30/23 09:26 Bisacodyl 5 Mg Tablet Ec PO QAM PRN Constipation Famotidine 20 mg 01/28/23 21:20 01/30/23 08:34 Famotidine 20 Mg/2 Ml Vial IV PUSH 20 mg Q12HR RENATO Administration Fluticasone Propionate 2 spray 01/25/23 09:00 01/30/23 08:34 Fluticasone Propionate 0.05% Na Spr 16 Gm Btl (*Bkc) NASAL 2 spray DAILY RENATO Administration Hydromorphone HCl 2 mg 01/28/23 14:54 01/30/23 12:19 Hydromorphone Hcl Inj (*Crx) 2 Mg/Ml Vial IV PUSH 2 mg Q2H PRN Administration Pain Rated 7-10 Sodium Chloride 1,000 mls @ 100 mls/hr 01/28/23 07:45 01/30/23 03:13 Normal
[2023-01-30] MEDS: KETOROLAC 30 MG/ML VIAL (*BKC) IV PUSH (16:04)
[2023-01-31] VITALS: PULSE 125
[2023-01-31] MEDS: SODIUM CHLORIDE 0.9% IV 1,000 ML 100 ML IV CONT (00:34)
[2023-01-31] MEDS: HYDROmorphone HCL INJ (*CRX) 2 MG/ML VIAL IV PUSH ×3 (00:35→06:25)
[2023-01-31] MEDS: METOPROLOL TARTRATE INJ 5 MG/5 ML VIAL IV PUSH (00:35)
--- NOTE | 2023-01-31 02:22 | PC.NURSE ---
Pt has been calling every 1.5 hours for more dilaudid. Pt also requesting something for gas relief which he has had, and wanting more medication to have a bowel movement (another enema) Pt has already had 3 bowel movements from previous medication today. Pt has been educated numerous times on some of the side effects of taking that much pain medication and not wanting to move or get up. Pt stated he is in way too much pain to get up or move around, however walked out to the nurses desk to ask for a popsicle and some tums. Doctor called and denied pt's request for tums, and instructed that pt go back to NPO w ice chips if he is having that much pain and discomfort. Pt informed, said ok, and asked when he can have more pain medication. Pt has not slept more then 45 min at a time throughout the night.
[2023-01-31] MEDS: LORazepam (*CRX) 0.5 MG TABLET PO ×2 (03:51→12:29)
[2023-01-31 04:00] VITALS: PULSE 108
[2023-01-31 05:55] LABS: Appearance Urine Clear (Clear); Bacteria Urine None Seen /hpf; Bilirubin Urine 1+ (Negative); Blood Urine 2+ (Negative); Color Urine Dark Yellow (Yellow); Glucose Urine UA Negative (Negative); Ketones Urine Trace mg/dL (Negative); Leukocyte Esterase Ur Negative LEU/UL (Negative); Nitrate Urine Negative (Negative); Non Pathogenic Casts 0-2; Protein Urine 1+ mg/dL (Negative); RBC Urine 21-50 /hpf (0-2); Squamous Epithelial Cell Urine None seen /hpf (Few); Urobilinogen Urine >=8.0 mg/dL (<2.0); WBC Urine 0-5 /hpf; pH Urine 6.5 (5.0-9.0)
[2023-01-31 05:56] LABS: Add Urine Microscopic? YES
--- NOTE | 2023-01-31 05:58 | PC.NURSE ---
Pt wanted to leave AMA starting at 0330. Spent extensive time with pt, explaining why it was a bad idea to leave at 0330 in the morning and against medical advice. Pt has had a higher heart rate throughout the night, which has required PRN medication. Pt's BP has been elevated. Educated pt on the importance of speaking to the Dr before he leaves for any follow up appointments/medication required. Pt requested ativan and more delaudid at that time. Pt requested an urine sample be taken due to now feeling like he is getting a UTI. Pt requested to take multiple showers throughout the night, he took two. Pt is currently back in bed at this time requesting more pain medication to be given prior to shift change.
[2023-01-31 06:00] VITALS: BP 160/90; PULSE 107; RESP 22; TEMP 36.4; O2SAT 93
[2023-01-31 06:59] LABS: Basophils Absolute Auto 0.1 K/mm3 (0.0-0.1); Basophils Percent Auto 0.5 % (0.2-1.2); Eosinophils Percent Auto 0.1 % (0-4.4); Hematocrit 36.5 % (42.0-52.0); Hemoglobin 12.4 g/dL (14.0-18.0); Lymphocytes Absolute Auto 1.02 K/mm3 (0.9-3.2); Lymphocytes Percent Auto 4.9 % (18.3-44.2); Mean Corpuscular Hemoglobin 31.8 pg (26-34); Mean Corpuscular Volume 93.6 fl (80-100); Mean Platelet Volume 9.4 fl (7.4-10.4); Monocytes Absolute Auto 2.1 K/mm3 (0.1-0.6); Monocytes Percent Auto 10.2 % (2.6-8.5); Neutrophils Absolute Auto 17.4 K/mm3 (1.3-6.7); Neutrophils Percent Auto 83.3 % (45.5-73.1); Platelet Count Result 220 k/mm3 (150-375); Red Cell Distribution Width 13.1 % (11.5-14.5); White Blood Count 20.9 K/mm3 (4.5-10.0)
[2023-01-31 07:13] LABS: Alanine Aminotransferase 137 U/L (6-50); Albumin Level 3.1 g/dL (3.5-5.1); Alkaline Phosphatase 100 U/L (38-126); Anion Gap 3 mmol/L (8-16); Aspartate Amino Transferase 58 U/L (17-59); Bilirubin,Total 2.4 mg/dL (0.2-1.3); Blood Urea Nitrogen 11 mg/dL (9-20); Calcium 7.3 mg/dL (8.4-10.2); Carbon Dioxide 31 mmol/L (22-30); Chloride 97 mmol/L (98-107); Estimated CRCL calculation 199 ml/min; Estimated Glomerular Filt Rate > 60; Glucose 102 mg/dL (65-110); Lipase 373 U/L (23-300); Magnesium 2.1 mg/dL (1.6-2.3); Potassium 3.3 mmol/L (3.4-5.0); Sodium 131 mmol/L (137-145)
[2023-01-31 08:00] VITALS: PULSE 99
[2023-01-31] MEDS: SIMETHICONE 125 MG CHEW TAB PO ×2 (08:09→12:29)
[2023-01-31] MEDS: LORATADINE 10 MG TABLET PO (08:09)
[2023-01-31] MEDS: KETOROLAC 30 MG/ML VIAL (*BKC) IV PUSH (08:09)
[2023-01-31] MEDS: FAMOTIDINE 20 MG/2 ML VIAL IV PUSH (08:10)
[2023-01-31] MEDS: FLUTICASONE PROPIONATE 0.05% NA SPR 16 GM BTL (*BKC) 2 SPRAY NASAL (08:10)
--- NOTE | 2023-01-31 10:31 | P.PNIM_ITS ---
Progress Note: A&P Assessment and Plan (1) Choledocholithiasis: Code(s): K80.50 - Calculus of bile duct without cholangitis or cholecystitis without obstruction Status: Resolved Assessment and Plan: * presented with low chest/left upper quadrant pain, nausea, vomiting, and dry heaves * CT shows 2 stones in the common bile duct * LFTs are elevated at AST/ALT 377/691, T. Bili 5.2 upon admission and trending down * MRCP found no evidence of choledocholithiasis, diffuse fatty infiltration of liver and minimal Intrahepatic biliary dilation that could be related to prior cholecystectomy. * ERCP did not reveal any stone, debris or sludge, sphincterotomy performed * GI consulted thank you for your help * Pain medications and antiemetics p.r.n. * 01/28 Patient with worsening abdominal pain today, concern for obstruction. * CT abdomen and pelvis showing acute pancreatitis. (2) Pancreatitis: Code(s): K85.90 - Acute pancreatitis without necrosis or infection, unspecified Status: Acute Assessment and Plan: 01/28/2023 patient with elevated lipase of 6655 * IV fluids discontinued * Advance diet as tolerated * Lipase trending down. * WBC count trending down * pain medication weaned down to p.o. ibuprofen as needed * GI continue to follow. (3) Transaminitis: Code(s): R74.01 - Elevation of levels of liver transaminase levels Status: Acute Assessment and Plan: * LFTs are elevated at AST/ALT 377/691, T. Bili 5.2 upon admission and continue to trend down * related to stone blockage in the common bile duct * Hep panel negative * Continue to trend (4) Hepatic steatosis: Code(s): K76.0 - Fatty (change of) liver, not elsewhere classified Status: Acute Assessment and Plan: * Seen on the CT * Outpatient follow up if indicated Subjective Date/time seen: 01/31/23 10:31 Interval history: Patient lying in bed with at bedside. Patient states that he has had multiple bowel movements since starting the MiraLax. He states that he is having abdominal discomfort rather than pain. Explained him that his IV pain medications are going to be discontinued due to risk of dependence and increased constipation. Him and his both verbalized their understanding. he is advancing diet today. With lack he can be discharged tomorrow. He denies any nausea, vomiting, diarrhea, chest pain and shortness of breath. His white count is continuing to trend down. Review of Systems Review of Systems: All systems reviewed & are unremarkable except as noted in HPI and below Exam Narrative: GENERAL: Comfortable, no acute distress HENMT: moist mucous membranes EYES: EOM intact b/l NECK: no lymphadenopathy RESPIRATORY: clear to auscultation CARDIO: RRR GI: soft, Nontender, bowel sounds present SKIN: no rashes EXTREMITIES: no edema, redness or tenderness Objective Data Vital Signs Vital Signs: Vital Signs - 24 hr 01/30/23 13:38 01/30/23 12:00 01/30/23 14:26 Temperature 97.3 F L Pulse Rate 104 H 124 H 160 H Respiratory Rate 20 Blood Pressure 162/86 H Pulse Oximetry 98 Oxygen Delivery 01/30/23 16:00 01/30/23 18:09 01/30/23 20:38 Temperature 98.1 F 98.4 F Pulse
--- NOTE | 2023-01-31 10:31 | PM.IMPN ---
Progress Note: A&P Assessment and Plan (1) Choledocholithiasis: Code(s): K80.50 - Calculus of bile duct without cholangitis or cholecystitis without obstruction Status: Resolved Assessment and Plan: presented with low chest/left upper quadrant pain, nausea, vomiting, and dry heaves CT shows 2 stones in the common bile duct LFTs are elevated at AST/ALT 377/691, T. Bili 5.2 upon admission and trending down MRCP found no evidence of choledocholithiasis, diffuse fatty infiltration of liver and minimal Intrahepatic biliary dilation that could be related to prior cholecystectomy. ERCP did not reveal any stone, debris or sludge, sphincterotomy performed GI consulted thank you for your help Pain medications and antiemetics p.r.n. 01/28 Patient with worsening abdominal pain today, concern for obstruction. CT abdomen and pelvis showing acute pancreatitis. (2) Pancreatitis: Code(s): K85.90 - Acute pancreatitis without necrosis or infection, unspecified Status: Acute Assessment and Plan: 01/28/2023 patient with elevated lipase of 6655 IV fluids discontinued Advance diet as tolerated Lipase trending down. WBC count trending down pain medication weaned down to p.o. ibuprofen as needed GI continue to follow. (3) Transaminitis: Code(s): R74.01 - Elevation of levels of liver transaminase levels Status: Acute Assessment and Plan: LFTs are elevated at AST/ALT 377/691, T. Bili 5.2 upon admission and continue to trend down related to stone blockage in the common bile duct Hep panel negative Continue to trend (4) Hepatic steatosis: Code(s): K76.0 - Fatty (change of) liver, not elsewhere classified Status: Acute Assessment and Plan: Seen on the CT Outpatient follow up if indicated Subjective Date/time seen: 01/31/23 10:31 Interval history: Patient lying in bed with at bedside. Patient states that he has had multiple bowel movements since starting the MiraLax. He states that he is having abdominal discomfort rather than pain. Explained him that his IV pain medications are going to be discontinued due to risk of dependence and increased constipation. Him and his both verbalized their understanding. he is advancing diet today. With lack he can be discharged tomorrow. He denies any nausea, vomiting, diarrhea, chest pain and shortness of breath. His white count is continuing to trend down. Review of Systems Review of Systems: All systems reviewed & are unremarkable except as noted in HPI and below Exam Narrative: GENERAL: Comfortable, no acute distress HENMT: moist mucous membranes EYES: EOM intact b/l NECK: no lymphadenopathy RESPIRATORY: clear to auscultation CARDIO: RRR GI: soft, Nontender, bowel sounds present SKIN: no rashes EXTREMITIES: no edema, redness or tenderness Objective Data Vital Signs Vital Signs: Vital Signs - 24 hr 01/30/23 13:38 01/30/23 12:00 01/30/23 14:26 Temperature 97.3 F L Pulse Rate 104 H 124 H 160 H Respiratory Rate 20 Blood Pressure 162/86 H Pulse Oximetry 98 Oxygen Delivery 01/30/23 16:00 01/30/23 18:09 01/30/23 20:38 Temperature 98.1 F 98.4 F Pulse Rate 121 H 120 H Respiratory Rate 13 Blood Pressure 151/79 H Pulse Oximetry 97 Oxygen Delivery 01/30/23 20:00 01/31/23 00:00 01/31/23 04:00 Temperature Pulse Rate 138 H 125 H 108 H Respiratory Rate Blood Pressure Pulse Oximetry Oxygen Delivery 01/31/23 06:00 01/31/23 08:00 Temperature 97.6 F Pulse Rate 107 H Respiratory Rate 22 H Blood Pressure 160/90 H Pulse Oximetry 93 Oxygen Delivery Room Air Intake/Output Intake/Output: Intake & Output 01/28/23 01/29/23 01/30/23 01/31/23 23:59 23:59 23:59 23:59 Intake Total 2740 1999 7284 450 Balance 2740 1999 2584 450 Meds/Results Medications: Active Medications
[2023-01-31] MEDS: IBUPROFEN 600 MG TABLET PO (11:26)
[2023-01-31 14:00] VITALS: BP 140/89; PULSE 91; RESP 14; TEMP 36.4; O2SAT 98
--- NOTE | 2023-01-31 14:51 | PM.DS ---
DS: Admitting Diagnosis Discharge Date 01/31/23 Admitting Diagnosis Choledocholithiasis, transaminitis DS: Discharge Diagnosis Discharge Diagnosis (1) Choledocholithiasis: Code(s): K80.50 - Calculus of bile duct without cholangitis or cholecystitis without obstruction Status: Resolved Assessment and Plan: presented with low chest/left upper quadrant pain, nausea, vomiting, and dry heaves CT shows 2 stones in the common bile duct LFTs are elevated at AST/ALT 377/691, T. Bili 5.2 upon admission and trending down MRCP found no evidence of choledocholithiasis, diffuse fatty infiltration of liver and minimal Intrahepatic biliary dilation that could be related to prior cholecystectomy. ERCP did not reveal any stone, debris or sludge, sphincterotomy performed GI consulted thank you for your help Pain medications and antiemetics p.r.n. 01/28 Patient with worsening abdominal pain today, concern for obstruction. CT abdomen and pelvis showing acute pancreatitis. (2) Pancreatitis: Code(s): K85.90 - Acute pancreatitis without necrosis or infection, unspecified Status: Acute Assessment and Plan: 01/28/2023 patient with elevated lipase of 6655 IV fluids discontinued Advance diet as tolerated Lipase trending down. WBC count trending down pain medication weaned down to p.o. ibuprofen as needed GI continue to follow. (3) Transaminitis: Code(s): R74.01 - Elevation of levels of liver transaminase levels Status: Acute Assessment and Plan: LFTs are elevated at AST/ALT 377/691, T. Bili 5.2 upon admission and continue to trend down related to stone blockage in the common bile duct Hep panel negative Continue to trend (4) Hepatic steatosis: Code(s): K76.0 - Fatty (change of) liver, not elsewhere classified Status: Acute Assessment and Plan: Seen on the CT Outpatient follow up if indicated DS: Summary Hospital Course Hospital Course: This is a 37-year-old male with a history of cholecystectomy in 2017 the presented to the ED on 01/24/2023 for evaluation of abdominal pain, nausea vomiting. Patient presented with left lower chest/ left upper quadrant pain radiating to the back. Patient had noticed his urine becoming dark brown/ orange and headed increased feeling of itchiness. Patient's labs revealed a white blood cell count of 6.7, total bilirubin of 5.2, AST of 337, ALT of 691 and alk-phos of 228. Lipase was 105. UA unremarkable. CT chest abdomen pelvis negative for PE but did show choledocholithiasis 3.5 and 4 mm stone in the pancreatic head region of the common bile duct and hepatic steatosis. GI consulted. MRCP found no evidence of choledocholithiasis but did reveal diffuse fatty infiltration of the liver and minimal intrahepatic Biliary dilation. ERCP did not reveal any stone, debris or sludge. Sphincterotomy was performed. After ERCP patient developed acute pancreatitis and was put on IV fluids. Lipase of 6656. Patient's white blood cell count increased to 27. analgesics given to the patient. Patient was also placed on NPO diet. Repeat CT abdomen pelvis revealed acute pancreatitis. Patient's LFTs and bili trended downward. White blood cell count trended down as well. After a couple days patient was able to tolerate a diet. Patient very eager and insistent on being discharged. Pertinent that patient follow-up with repeat labs in approximately 1 week. Time Spent with Patient Time attestation: Total time spent providing and/or coordinating discharge services: Exam Narrative: GENERAL: Comfortable, no acute distress HENMT: moist mucous membranes EYES: EOM intact b/l NECK: no lymphadenopathy RESPIRATORY: clear to auscultation CARDIO: RRR GI: soft, Nontender, bowel sounds present SKIN: no rashes EXTREMITIES: no edema, redness or tenderness DS: Data Data Completed and Pending Labs
--- NOTE | 2023-01-31 15:54 | PC.NURSE ---
Spoke with the patient and his at approximately 0730 about the decrease in his Dilaudid dose and the importance of trying to avoid the Dilaudid as much as possible since it is gas pain and that the pain medication can slow the bowels down. agreed that was the best choice as patient is drugged and talking nonsense on that medication When returning to the patients room at approximately at 0810 to administer his morning medication patient stated that he feels much better. At approximately 0930 the patient requesting to eat real food and go home I discussed with the patient that we need to slowly introduce food into his system due to his current situation so he demanded the next step in his diet. I called and spoke with Birgit Neves about advancing diet and it was advanced to a full liquid. Pt tolerated pudding and came to the nurses station requesting to be discharged. I educated the patient again on the need to take things slow so we don't cause another flair up. Pt called at approximately 11:30 requesting to be discharged. Spoke with Birgit and she stated to update GI for diet advancement. Spoke with Dr Raymond at approximately 1340 in regards to the patients situation, he stated to advance the patient to a low fat diet and okay to discharge if diet is tolerated. Ordered patient a lunch tray for low fat diet. Patient came to the nurses station at 1430 stating he ate his lunch and feels fine and would like to go home. I spoke with Birgit at approximately 1500 and she stated the patient needed to stay until dinner to see if he tolerates dinner and can discharge if he does. Updated both the patient and the . The patient is very anxious and demanding to leave now, educated the purpose to stay until dinner, which they agreed to. The patient approached the nurses station at 1520 requesting to be discharged earlier, I educated the patient and the again on how the discharge is for after dinner.
--- NOTE | 2023-01-31 17:37 | WPDGIPROGNO ---
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, s/p sphincterotomy, did not find stones and bili coming down (2) Upper abdominal pain: Code(s): R10.10 - Upper abdominal pain, unspecified Status: Acute Assessment and Plan: feeling much better miralax for constipation (3) Nausea and vomiting in adult: Code(s): R11.2 - Nausea with vomiting, unspecified Status: Acute Assessment and Plan: antiemetics better (4) Elevated liver enzymes: Code(s): R74.8 - Abnormal levels of other serum enzymes Status: Acute Assessment and Plan: improving Subjective Date/time seen: 01/31/23 15:00 Interval history: doing much better, tolerating diet and no nausea Review of Systems Review of Systems: All systems reviewed & are unremarkable except as noted in HPI and below Exam Const: General: comfortable and no acute distress HENMT: Face/Nose/Sinus: Normal nares present Eyes: General: appearance normal, both eyes and all related structures Neck: Neck: no JVD Resp: Auscultation: clear to auscultation bilaterally Cardio: Rate: regular rate Rhythm: regular rhythm GI: Inspection: non-distended GI Palp: Yes Soft to palpation and No Tenderness to palpation present (GI) Auscultation: normal bowel sounds Skin: General skin exam: normal color Neuro: Speech: normal speech Motor exam (neuro): 5/5 motor strength present throughout Extrem: General: normal to inspection Psych: Mental Status: mental status grossly normal Objective Data Vital Signs Vital Signs: Vital Signs - 24 hr 01/30/23 18:09 01/30/23 20:38 01/30/23 20:00 Temperature 98.1 F 98.4 F Pulse Rate 120 H 138 H Respiratory Rate 13 Blood Pressure 151/79 H Pulse Oximetry 97 Oxygen Delivery 01/31/23 00:00 01/31/23 04:00 01/31/23 06:00 Temperature 97.6 F Pulse Rate 125 H 108 H 107 H Respiratory Rate 22 H Blood Pressure 160/90 H Pulse Oximetry 93 Oxygen Delivery 01/31/23 08:00 01/31/23 08:00 01/31/23 14:00 Temperature 97.6 F Pulse Rate 99 91 Respiratory Rate 14 Blood Pressure 140/89 Pulse Oximetry 98 Oxygen Delivery Room Air Intake/Output Intake/Output: Intake & Output 01/28/23 01/29/23 01/30/23 01/31/23 23:59 23:59 23:59 23:59 Intake Total 2740 1999 2584 1570 Balance 2740 1999 2584 1570 Meds/Results Radiology Results: ITS Impressions Chest/Abdomen/Pelvis CTA 01/24/23 13:13 IMPRESSION: No evidence of pulmonary embolism Status post cholecystectomy Choledocholithiasis Hepatic steatosis MRCP 01/25/23 19:08 Impression: No evidence of choledocholithiasis. Diffuse fatty infiltration of liver. Minimal intrahepatic biliary dilatation may be related to prior cholecystectomy. Endo Retro Cholangiopancreatogram 01/27/23 22:02 IMPRESSION: 1. No choledocholithiasis seen. Please refer to the ERCP procedure note for additional details. Abdomen/Pelvis CT 01/28/23 12:22 IMPRESSION: 1. Acute pancreatitis. 2. Gallstones in the residual cystic duct and gallbladder neck status post cholecystectomy. Chest X-Ray 01/29/23 16:00 IMPRESSION: 1. Mild atelectasis in the lower lung zones. Labs Labs: Laboratory Results - last 24 hr 01/31/23 01/31/23 05:37 06:49 WBC 20.9 H RBC 3.90 L Hgb 12.4 L D Hct 36.5 L MCV 93.6 MCH 31.8 MCHC 34.0 RDW 13.1 Plt Count 220 MPV 9.4 Immature Gran % (Auto) 1.0 H Neut % (Auto) 83.3 H Lymph % (Auto) 4.9 L Gr[place] % (Auto) 10.2 H Eos % (Au
== END 2023-01-31 16:45 | disposition home or self-care (01) | DRG 444 ==
LOC: ANHED 11:50 → ANH3MEDSUR 14:45
PROVIDERS: Internal Medicine; Internal Medicine Gastroenterology; Nurse Practitioner; Admitting Provider Student in an Organized Health Care Education/Training Program; Emergency Provider General Practice; Visit Provider Internal Medicine Critical Care Medicine
PROC: 0F798ZZ Dilation of Common Bile Duct, Via Natural or Artificial Opening Endoscopic (ICD-10-PCS; CPT 43260; principal; 2023-01-27 16:30)
DX: K80.50 Calculus of bile duct without cholangitis or cholecystitis without obstruction (principal); K85.90 Acute pancreatitis without necrosis or infection, unspecified; K91.89 Other postprocedural complications and disorders of digestive system; Z68.41 Body mass index [BMI] 40.0-44.9, adult; K76.0 Fatty (change of) liver, not elsewhere classified; E66.9 Obesity, unspecified; R74.01 Elevation of levels of liver transaminase levels; M10.9 Gout, unspecified
CPT/HCPCS: 36415; 71045; 71046; 71275; 74176; 74177; 74183; 74329; 76376; 80053; 80061; 80074; 81001; 81003; 82550; 83690; 83735; 84145; 84484; 85025; 85380; 85610; 85730; 87040; 93005; 96361; 96374; 96375; 96376; 99285; A9270; A9577; C9113; G0378; J0330; J1170; J1741; J1885; J2060; J2270; J2405; J2704; J2765; J7030; J7120; Q9967

== ENCOUNTER 2023-02-01 12:14 | Emergency (ER) | payer BC, SELFPAY ==
[2023-02-01] VITALS (30 sets, daily range): BP systolic 137–163; BP diastolic 81–96; PULSE 90–105; RESP 13–35; TEMP 36.1; O2SAT 96
--- NOTE | ~2023-02-01 | CT_ITS ---
EXAMINATION: CTA chest PE abdomen pel DATE: 02/01/2023 16:08 INDICATION: Shortness of breath. Recent hospitalization/procedure. Diffuse abdominal pain. TECHNIQUE: Computed tomography angiography (CTA) of the chest was performed with 100 mL Omnipaque-350 intravenous contrast timed to evaluate the pulmonary arteries. Coronal maximum intensity projection 3D-reconstructions were created by the technologist. Automated exposure control and iterative reconst ruction technique were employed. Exam dose: 2660.78 mGy-cm total exam DLP. COMPARISON: CTA chest abdomen pelvis FINDINGS: The pulmonary arteries are moderately opacified on the second injection. No pulmonary embol ism is evident. No thoracic aortic aneurysm or dissection. Normal heart size. No pericardial or pleural effusion. There is mild discoid atelectasis or scarring in both lower lobes. No pulmonary infiltrate or consoli dation. Small sliding hiatal hernia. Hepatic steatosis. Status post cholecystectomy. Pneumobilia. Normal morphology of the adrenal glands. Included skeletal structures are unremarkable. IMPRESSION: No evidence of pulmonary embolism Mild discoid atelectasis or scarring in the lower lobes Reviewed, dictated and finalized at [facility]. Reviewed, dictated and finalized at [facility].
--- NOTE | ~2023-02-01 | US_ITS ---
US scrotum doppler INDICATION: Bilateral testicular pain TECHNIQUE: Testicular sonogram utilizing grayscale and color Doppler FINDINGS: The testes are normal in size and appearance. No focal lesions are seen. The right testes measures 2.9 x 3.8 x 2.1 cm centimeters, and the left testis measures 3.6 x 2.1 x 2.7 cm cm. There is normal vascular flow to both testes. There are bilateral epididymal cysts, largest on the right measuring 8 mm. There are bilateral varicoceles. IMPRESSION: 1. Bilateral varicoceles. 2: Bilateral epididymal cysts. Reviewed, dictated and finalized at [facility].
--- NOTE | ~2023-02-01 | XR_ITS ---
EXAMINATION: XR chest 2V 02/01/2023 13:08 INDICATION: Shortness of breath PROCEDURE: 2 view chest COMPARISON: Comparison to multiple prior studies sequentially, with oldest reviewed study dated 11/20. FINDINGS: The lungs are clear. The cardiomediastinal silhouette is within normal limits. There are no pleural effusions. There is no pneumothorax suspected. IMPRESSION: 1: NO ACUTE CARDIOPULMONARY DISEASE. Reviewed, dictated and finalized at location [facility].
--- NOTE | 2023-02-01 12:59 | ED.GENADULT ---
HPI - General Adult General Chief complaint: Unspecified Stated complaint: SOB, pain in groin, anxiety Time Seen by Provider: 02/01/23 12:43 History of Present Illness HPI narrative: Patient is a 37-year-old male here for evaluation of multiple medical complaints. Patient states that he was discharged from the hospital 2 days ago; he was admitted in the setting of chest pain/abdominal pain and was found to have possible choledocholithiasis on CT. patient underwent ERCP and sphincterotomy, no stones were found. Unfortunately patient developed pancreatitis after the ERCP and was placed on IV fluids and Dilaudid. patient felt clinically improved and insisted he was discharged, although continued admission was recommended. Since being discharged, he has felt short of breath, anxious, diffuse abdominal discomfort and pain in the tip of his penis. Reports difficulty sleeping, hypnogogic hallucinations. patient states the symptoms are new since being discharged. He has been tolerating his diet, had a banana, oatmeal and smoothie for breakfast. Related Data Home Medications Medication Instructions Recorded Confirmed cetirizine 10 mg tablet (Zyrtec) 10 mg PO DAILY 07/01/22 01/27/23 fluticasone propionate 50 2 spray intranasal DAILY 01/10/23 01/27/23 mcg/actuation nasal spray,suspension Allergies Allergy/AdvReac Type Severity Reaction Status Date / Time No Known Allergies Allergy Unknown Verified 02/01/23 12:57 Review of Systems Review of Systems: Gen.: Denies fevers or chills Eyes: Denies eye pain or visual change ENT: Denies congestion Respiratory: Reports shortness of breath CV: Denies chest pain or palpitations GI: Reports abdominal pain denies burning, urgency, frequency or hematuria Musculoskeletal: Denies back pain or muscle pain Neuro: Denies numbness, tingling, weakness or focal weakness Skin: Denies rash Except as documented, all other systems reviewed and negative [facility] Past Medical History Medical History Elevated liver enzymes GERD (gastroesophageal reflux disease) Gout Hepatic steatosis Noted on CT scan 01/24/2023. Nausea and vomiting in adult Post-ERCP acute pancreatitis Seasonal allergies Upper abdominal pain Surgical History Surgical History History of cholecystectomy Family History Family History (Updated 01/24/23 @ 20:58 by Diana Maldonado PA-C) Other Family history non-contributory Social History Social History (Updated 01/24/23 @ 20:59 by Diana Maldonado PA-C) Social History: Surrogate medical decision maker: Jeanette Coker, spouse. Code status: Full code. Smoking status: Never smoker Alcohol use details: Rare alcohol use. Lack of Transportation: No Lack of Food: Never True Current Housing: I Have Housing Concerned About Future Housing: No Difficulty Paying Gas/Electric Bills: No Difficulty Paying for Meds: No Currently Unemployed: No Education: Associate Degree Difficulty w/ Childcare or Family Care: No Additional living arrangements comments: Lives with spouse and 3 children in [place]. Additional occupation/education comments: Works for [email or web address]. Spiritual care concerns: No Exam Narrative: APPEARANCE: Anxious appearing. Head: Normocephalic and atraumatic. EYES: PERRLA/EOMI, conjunctivae clear NOSE: No nasal drainage EARS: External ear normal in appearance THROAT: Oropharynx is clear. Mucous membranes are moist. NECK: Supple. No adenopathy, no masses. RESPIRATORY: Airway patent, respirations nonlabored. Clear to auscultation bilaterally, no rales, rhonchi, wheezing. CARDIOVASCULAR: Regular rate and rhythm without murmurs, rubs, or gallops. : Exam performed with metal roaster Ashish. There is no tenderness to palpation at the tip of the penis, no rashes or gross abnormalities. There is slight
[2023-02-01 13:39] LABS: Basophils Absolute Auto 0.1 K/mm3 (0.0-0.1); Basophils Percent Auto 0.6 % (0.2-1.2); Eosinophils Absolute Auto 0.1 K/mm3 (0-0.3); Eosinophils Percent Auto 0.4 % (0-4.4); Hematocrit 33.5 % (42.0-52.0); Hemoglobin 11.6 g/dL (14.0-18.0); Immature Granulocyte Absolute 0.46 K/mm3 (0.00-0.031); Immature Granulocyte Percent A 2.3 % (0-0.5); Lymphocytes Absolute Auto 1.36 K/mm3 (0.9-3.2); Lymphocytes Percent Auto 6.8 % (18.3-44.2); Mean Corpuscular HGB Conc 34.6 g/dl (32-36); Mean Corpuscular Hemoglobin 31.8 pg (26-34); Mean Corpuscular Volume 91.8 fl (80-100); Mean Platelet Volume 9.2 fl (7.4-10.4); Monocytes Absolute Auto 2.5 K/mm3 (0.1-0.6); Monocytes Percent Auto 12.3 % (2.6-8.5); Neutrophils Absolute Auto 15.4 K/mm3 (1.3-6.7); Neutrophils Percent Auto 77.6 % (45.5-73.1); Platelet Count Result 293 k/mm3 (150-375); Red Blood Count 3.65 M/mm3 (4.6-6.20); Red Cell Distribution Width 12.8 % (11.5-14.5); White Blood Count 19.9 K/mm3 (4.5-10.0)
[2023-02-01 13:51] LABS: Alanine Aminotransferase 127 U/L (6-50); Albumin Level 3.3 g/dL (3.5-5.1); Alkaline Phosphatase 130 U/L (38-126); Anion Gap 2 mmol/L (8-16); Aspartate Amino Transferase 76 U/L (17-59); Bilirubin,Total 2.2 mg/dL (0.2-1.3); Blood Urea Nitrogen 8 mg/dL (9-20); Calcium 7.6 mg/dL (8.4-10.2); Carbon Dioxide 36 mmol/L (22-30); Chloride 94 mmol/L (98-107); Estimated CRCL calculation 202 ml/min; Estimated Glomerular Filt Rate > 60; Glucose 109 mg/dL (65-110); Lipase 212 U/L (23-300); Potassium 3.5 mmol/L (3.4-5.0); Sodium 132 mmol/L (137-145)
[2023-02-01 13:52] LABS: Lactic Acid Reflex 1.2 mmol/L (0.7-2.0)
--- NOTE | 2023-02-01 14:22 | ECG_ITS ---
Measurements Intervals [place] Rate: 83 P: 2 [place]: 126 QRS: 69 QRSD: 102 T: 17 QT: 314 QTc: 369 Interpretive Statements SINUS RHYTHM WITH PAC OTHERWISE NORMAL ECG COMPARED TO ECG 01/24/2023 10:54:28 1 PACS PRESENT Electronically Signed On 02-02-2023 11:16:40 CDT by Wolfgang Charles M.D.
[2023-02-01 14:23] LABS: Appearance Urine Clear (Clear); Bacteria Urine None Seen /hpf; Bilirubin Urine Negative (Negative); Color Urine Yellow (Yellow); Glucose Urine UA Negative (Negative); Ketones Urine Negative (Negative); Leukocyte Esterase Ur Negative LEU/UL (Negative); Need Manual Microscopic Reviewed; Nitrate Urine Negative (Negative); Non Pathogenic Casts 0-2; Protein Urine Negative (Negative); RBC Urine 0-2 /hpf (0-2); Specific Grav Ur 1.005 (1.001-1.035); Squamous Epithelial Cell Urine None seen /hpf (Few); WBC Urine 0-5 /hpf
[2023-02-01 14:27] LABS: Add Urine Microscopic? YES
[2023-02-01] MEDS: LACTATED RINGERS 1,000 ML 999 ML IV CONT (15:05)
[2023-02-01] MEDS: LORazepam INJ (*CRX) 2 MG/ML VIAL 0.5 MG IV PUSH (15:06)
[2023-02-01 15:07] LABS: Magnesium 2.3 mg/dL (1.6-2.3); Phosphorus 2.8 mg/dL (2.5-4.5)
[2023-02-01 15:08] LABS: Ammonia 12 umol/L (9-30)
[2023-02-01 15:09] LABS: INR 1.1; Prothrombin Time 14.3 Seconds (11.1-14.7)
[2023-02-01 15:11] LABS: Partial Thromboplastin Time 27.1 SECONDS (22.3-36.8)
[2023-02-01 15:20] LABS: NT Pro B Type Natriuretic Pept 909 pg/mL (19.9-100); Troponin I < 0.012 ng/mL (0.000-0.034)
[2023-02-01 15:25] LABS: Fractional Inspired Oxygen 21 %; HCO3 VBG 30.8 mEq/l (24.0-30.0); PO2 VBG 29.9 mmHg (35.0-45.0)
[2023-02-01 15:27] LABS: Device ROOM AIR; pH VBG 7.504 (7.300-7.400)
[2023-02-01] MEDS: BELLADONNA ALK/PHENOB ELIX 10 ML, MAG HYDROX/ALUMINUM HYD/SIMETH 30 ML, LIDOCAINE HCL 2... PO (17:31)
== END 2023-02-01 18:39 | disposition home or self-care (01) ==
PROVIDERS: Emergency Provider Physician Assistant
DX: I86.1 Scrotal varices (principal); K21.9 Gastro-esophageal reflux disease without esophagitis; M10.9 Gout, unspecified; N50.3 Cyst of epididymis; Z90.49 Acquired absence of other specified parts of digestive tract; I49.1 Atrial premature depolarization
CPT/HCPCS: 36415; 71046; 71275; 74177; 76870; 80053; 81001; 82140; 82803; 83605; 83690; 83735; 83880; 84100; 84484; 85025; 85610; 85730; 93005; 93976; 96361; 96374; 99284; A9270; J2060; J7120; Q9967

== ENCOUNTER 2023-02-03 17:57 | Emergency (ER) | payer BC, SELFPAY ==
[2023-02-03 18:42] VITALS: BP 174/85; PULSE 98; RESP 18; TEMP 36.7; O2SAT 100
[2023-02-03 19:04] LABS: Hematocrit 36.3 % (42.0-52.0); Hemoglobin 12.3 g/dL (14.0-18.0); Mean Corpuscular HGB Conc 33.9 g/dl (32-36); Mean Corpuscular Volume 91.4 fl (80-100); Mean Platelet Volume 8.9 fl (7.4-10.4); Platelet Count Result 422 k/mm3 (150-375); Red Blood Count 3.97 M/mm3 (4.6-6.20); Red Cell Distribution Width 13.6 % (11.5-14.5); White Blood Count 17.3 K/mm3 (4.5-10.0)
[2023-02-03 19:08] LABS: Appearance Urine Clear (Clear); Bacteria Urine None Seen /hpf; Bilirubin Urine Negative (Negative); Blood Urine Trace (Negative); Color Urine Dark Yellow (Yellow); Glucose Urine UA Negative (Negative); Ketones Urine Negative (Negative); Leukocyte Esterase Ur Negative LEU/UL (Negative); Nitrate Urine Negative (Negative); Non Pathogenic Casts 0-2; Protein Urine 1+ mg/dL (Negative); Specific Grav Ur 1.015 (1.001-1.035); Squamous Epithelial Cell Urine None seen /hpf (Few); WBC Urine 0-5 /hpf
[2023-02-03 19:13] LABS: Alanine Aminotransferase 99 U/L (6-50); Albumin Level 3.5 g/dL (3.5-5.1); Alkaline Phosphatase 143 U/L (38-126); Anion Gap 6 mmol/L (8-16); Aspartate Amino Transferase 69 U/L (17-59); Bilirubin,Total 1.6 mg/dL (0.2-1.3); Blood Urea Nitrogen 9 mg/dL (9-20); Calcium 7.7 mg/dL (8.4-10.2); Carbon Dioxide 32 mmol/L (22-30); Chloride 93 mmol/L (98-107); Estimated CRCL calculation 195 ml/min; Estimated Glomerular Filt Rate > 60; Glucose 97 mg/dL (65-110); Lipase 233 U/L (23-300); Sodium 131 mmol/L (137-145)
[2023-02-03 19:14] LABS: Add Urine Microscopic? YES
[2023-02-03 19:27] LABS: Total Cells Counted 100
[2023-02-03 19:28] LABS: Band Neutrophils Percent 6 % (0-6); Eosinophils Absolute Manual 0.17 K/mm3 (0.02-0.5); Eosinophils Percent Manual 1 % (0-4); Lymphocytes Absolute Manual 1.55 K/mm3 (1.1-4.5); Lymphocytes Percent Manual 9 % (18-44); Metamyelocytes Percent 3 %; Monocytes Absolute Manual 1.21 K/mm3 (0.1-0.90); Monocytes Percent Manual 7 % (3-9); Neutrophils Absolute Manual 13.84 K/mm3 (1.3-6.7); Neutrophils Percent Manual 74 % (46-73); Platelet Estimate Increased (Adequate); Smudge Cells FEW
[2023-02-03 19:29] LABS: Schistocytes None Seen (NORMAL); Stomatocytes 1+ (NORMAL)
--- NOTE | 2023-02-03 21:05 | ECG_ITS ---
Measurements Intervals [place] Rate: 91 P: 52 [place]: 140 QRS: 57 QRSD: 106 T: 11 QT: 298 QTc: 368 Interpretive Statements SINUS RHYTHM NONSPECIFIC T-WAVE ABNORMALITY COMPARED TO ECG 02/01/2023 15:15:51 NO SIGNIFICANT CHANGES Electronically Signed On 02-04-2023 9:09:46 CDT by Jacob Burton M.D.
--- NOTE | 2023-02-03 21:25 | ED.ABDPAIN ---
HPI - Abdominal Pain General Chief Complaint: Abdominal Pain <Dulce Gonzalez PA-C - Last Filed: 02/05/23 15:51> Stated Complaint: fever, abd pain (dc'd February 01 for pancreatitis) <Dulce Gonzalez PA-C - Last Filed: 02/05/23 15:51> Time Seen by Provider: 02/03/23 20:34 <Dulce Gonzalez PA-C - Last Filed: 02/05/23 15:51> History of Present Illness HPI narrative: 37-year-old male reports for evaluation of generalized abdominal pain, nausea and a temperature of 99.8 today. Pt was admitted on 01/31 for possible choledocholithiasis and discharged on 01/31. He underwent an MRCP, ERCP and sphincterotomy without stones identified. He then developed pancreatitis after the ERCP and started on IV fluids and pain control with Dilaudid. He was discharged on 01/31 then reported back to the ED on 02/01 for multiple complaints including shortness of breath, anxiety, diffuse abdominal discomfort and pain to the tip of his penis. Testicular ultrasound showed varicoceles and epididymal cysts; followed up with urology today and was started on gabapentin for nerve pain. UA unremarkable. His WBC and bili was downtrending from discharge. Imaging of abdomen and pelvis w/o acute findings, no PE. He received ativan and GI cocktail with improvement. Today, he is reporting for generalized abdominal pain that has progressed since he was last seen 2 days ago. He reports associated nausea and decreased po intake. No vomiting. He endorses having increased amounts of loose stools since yesterday which have slowed down since he took Imodium today. Denies new urinary complaints other than the pain at the tip of his penis for which he was evaluated for by urology today. He was advised to not take Tylenol, but instead to take ibuprofen for pain with some relief. He denies cough, congestion, chest pain, headache, vision changes, focal numbness or weakness. <Dulce Gonzalez PA-C - Last Filed: 02/05/23 15:51> Related Data Home Medications: Home Medications Medication Instructions Recorded Confirmed cetirizine 10 mg tablet (Zyrtec) 10 mg PO DAILY 07/01/22 01/27/23 fluticasone propionate 50 2 spray intranasal DAILY 01/10/23 01/27/23 mcg/actuation nasal spray,suspension <Dulce Gonzalez PA-C - Last Filed: 02/05/23 15:51> Allergies/Adverse Reactions: Allergies Allergy/AdvReac Type Severity Reaction Status Date / Time No Known Allergies Allergy Unknown Verified 02/01/23 12:57 <Dulce Gonzalez PA-C - Last Filed: 02/05/23 15:51> Review of Systems Review of Systems: CONSTITUTIONAL: See HPI EYES: Denies visual changes, redness, or discharge. ENT: Denies rhinorrhea, congestion, sore throat, or otalgia. CARDIOVASCULAR: Denies chest pain, palpitations, or edema. RESPIRATORY: Denies cough or dyspnea. GASTROINTESTINAL: See HPI GENITOURINARY: Denies dysuria or hematuria. SKIN: Denies rash or itching. MUSCULOSKELETAL: Denies back pain, joint pain, or myalgia. NEUROLOGIC: Denies headache, numbness, dizziness, or weakness. PSYCHIATRIC: Denies anxiety or depression. <Dulce Gonzalez PA-C - Last Filed: 02/05/23 15:51> [facility] Past Medical History Medical History: Medical History Elevated liver enzymes GERD (gastroesophageal reflux disease) Gout Hepatic steatosis Noted on CT scan 01/24/2023. Nausea and vomiting in adult Post-ERCP acute pancreatitis Seasonal allergies Upper abdominal pain <Dulce Gonzalez PA-C - Last Filed: 02/05/23 15:51> Surgical History Surgical History: Surgical History History of cholecystectomy <Dulce Gonzalez PA-C - Last Filed: 02/05/23 15:51> Family History Family History: Family History Other Family history non-contributory <Dulce Gonzalez PA-C - Last Filed: 02/05/23 15:51> Social H
[2023-02-03] MEDS: BELLADONNA ALK/PHENOB ELIX 10 ML, MAG HYDROX/ALUMINUM HYD/SIMETH 30 ML, LIDOCAINE HCL 2... PO (22:07)
[2023-02-03] MEDS: SODIUM CHLORIDE 0.9% IV 1,000 ML 999 ML IV CONT ×2 (22:09→23:33)
[2023-02-03] MEDS: ONDANSETRON INJ 4 MG/2 ML VIAL IV PUSH (22:11)
[2023-02-03] MEDS: KETOROLAC 30 MG/ML VIAL (*BKC) IV PUSH (22:11)
[2023-02-03 23:32] VITALS: BP 144/81; PULSE 88; RESP 18; O2SAT 98
[2023-02-03] MEDS: POTASSIUM CHLORIDE 20 MEQ PACKET (FOR LIQUID) 40 MEQ PO (23:33)
== END 2023-02-04 00:25 | disposition home or self-care (01) ==
PROVIDERS: Emergency Medicine; Emergency Provider Physician Assistant
DX: R10.84 Generalized abdominal pain (principal); R31.9 Hematuria, unspecified; R11.0 Nausea; K21.9 Gastro-esophageal reflux disease without esophagitis; M10.9 Gout, unspecified; Z90.49 Acquired absence of other specified parts of digestive tract; R94.31 Abnormal electrocardiogram [ECG] [EKG]
CPT/HCPCS: 36415; 80053; 81001; 83690; 85025; 87045; 87427; 93005; 96361; 96374; 96375; 99284; A9270; J1885; J2405; J7030

== ENCOUNTER 2023-02-07 10:39 | Outpatient (CLI) | payer BC, SELFPAY ==
[2023-02-07 11:05] LABS: Alanine Aminotransferase 143 U/L (6-50); Albumin Level 3.4 g/dL (3.5-5.1); Alkaline Phosphatase 156 U/L (38-126); Anion Gap 7 mmol/L (8-16); Aspartate Amino Transferase 130 U/L (17-59); Bilirubin,Total 1.5 mg/dL (0.2-1.3); Blood Urea Nitrogen 9 mg/dL (9-20); Carbon Dioxide 32 mmol/L (22-30); Chloride 93 mmol/L (98-107); Estimated Glomerular Filt Rate > 60; Glucose 105 mg/dL (65-110); Potassium 3.9 mmol/L (3.4-5.0); Sodium 132 mmol/L (137-145)
== END 2023-02-07 10:40 | disposition home or self-care (01) ==
LOC: ANHLAB 10:41
PROVIDERS: Visit Provider Internal Medicine Critical Care Medicine
DX: R74.01 Elevation of levels of liver transaminase levels (principal); R74.8 Abnormal levels of other serum enzymes
CPT/HCPCS: 36415; 80053

== ENCOUNTER 2023-02-09 08:17 | Emergency (ER) | payer BC, SELFPAY ==
[2023-02-09] VITALS (8 sets, daily range): BP systolic 134–163; BP diastolic 80–115; PULSE 119–138; RESP 18–19; TEMP 36.5; O2SAT 94–97
--- NOTE | ~2023-02-09 | CT_ITS ---
EXAMINATION: CT abdomen pelvis w con DATE: 02/09/2023 09:58 INDICATION: Right lower quadrant pain TECHNIQUE: Computed tomography (CT) of the abdomen and pelvis was performed with 100 cc Omnipaque 350 intravenous contrast. The dose-length product was 1585.64 mGy-cm. Automated exposure control and ite rative reconstruction technique were employed. COMPARISON: Comparison to multiple prior studies sequentially, with oldest reviewed study dated 02/2023. . FINDINGS: Lung bases are unremarkable. No no significant pleural or pericardial effusion. The spleen, adrenal glands and kidneys are unremarkable. Fatty infiltration of the liver. Status post cholecyste ctomy with residual stones in the cystic duct. There is pneumobilia. There is an accessory splenule. There is a thickening of the pancreas with adjacent inflammation and increasing fluid surrounding the pancreas extending inferiorly into the mesentery, retroperitoneum0 and pelvis. There is irregular ri m-like enhancement of the fluid, suspicious for developing abscess. No evidence for pancreatic necros is. There is a small fat-containing umbilical hernia. There is mild thoracic and lumbar spondylosis. IMPRESSION: 1. Persistent acute pancreatitis with interval progression of volume of fluid which extends inferiorl y into the mesentery, retroperitoneum and pelvis. Thin rind-like enhancement of the fluid, suspicious for developing abscess formation. 2: Status post cholecystectomy with residual stones in the cystic duct. Pneumobilia. Reviewed, dictated and finalized at location [] IMPRESSION: 1. Persistent acute pancreatitis with interval progression of volume of fluid w hich extends inferiorly into the mesentery, retroperitoneum and pelvis. Thin ri nd-like enhancement of the fluid, suspicious for developing abscess formation. 2: Status post cholecystectomy with residual stones in the cystic duct. Pneumo bilia.
[2023-02-09] MEDS: MORPHINE SULFATE (*CRX) 4 MG/ML INJ IV PUSH (08:49)
[2023-02-09] MEDS: SODIUM CHLORIDE 0.9% IV 1,000 ML 999 ML IV CONT (08:49)
[2023-02-09] MEDS: ONDANSETRON INJ 4 MG/2 ML VIAL IV PUSH (08:49)
[2023-02-09 09:02] LABS: Basophils Absolute Auto 0.1 K/mm3 (0.0-0.1); Basophils Percent Auto 0.5 % (0.2-1.2); Eosinophils Absolute Auto 0.1 K/mm3 (0-0.3); Eosinophils Percent Auto 0.4 % (0-4.4); Hematocrit 42.9 % (42.0-52.0); Hemoglobin 14.3 g/dL (14.0-18.0); Immature Granulocyte Absolute 0.57 K/mm3 (0.00-0.031); Immature Granulocyte Percent A 2.6 % (0-0.5); Lymphocytes Percent Auto 7.2 % (18.3-44.2); Mean Corpuscular HGB Conc 33.3 g/dl (32-36); Mean Corpuscular Volume 92.9 fl (80-100); Mean Platelet Volume 8.6 fl (7.4-10.4); Monocytes Absolute Auto 1.2 K/mm3 (0.1-0.6); Monocytes Percent Auto 5.3 % (2.6-8.5); Neutrophils Absolute Auto 18.6 K/mm3 (1.3-6.7); Platelet Count Result 849 k/mm3 (150-375); Red Blood Count 4.62 M/mm3 (4.6-6.20); Red Cell Distribution Width 13.6 % (11.5-14.5); White Blood Count 22.2 K/mm3 (4.5-10.0)
[2023-02-09 09:12] LABS: Alanine Aminotransferase 94 U/L (6-50); Albumin Level 3.5 g/dL (3.5-5.1); Alkaline Phosphatase 140 U/L (38-126); Anion Gap 7 mmol/L (8-16); Aspartate Amino Transferase 57 U/L (17-59); Bilirubin,Total 1.4 mg/dL (0.2-1.3); Blood Urea Nitrogen 11 mg/dL (9-20); Calcium 8.4 mg/dL (8.4-10.2); Carbon Dioxide 33 mmol/L (22-30); Chloride 92 mmol/L (98-107); Estimated CRCL calculation 166 ml/min; Estimated Glomerular Filt Rate > 60; Glucose 106 mg/dL (65-110); INR 1.3; Lipase 391 U/L (23-300); Potassium 4.2 mmol/L (3.4-5.0); Prothrombin Time 16.6 Seconds (11.1-14.7); Sodium 132 mmol/L (137-145)
[2023-02-09 09:13] LABS: Partial Thromboplastin Time 32.9 SECONDS (22.3-36.8)
[2023-02-09] MEDS: PIPERACILLN/TAZ 3.375GM/NS50ML 3.375 GM/50 ML BAG IVPB ×2 (11:01→19:02)
--- NOTE | 2023-02-09 11:11 | ED.ABDPAIN ---
HPI - Abdominal Pain General Chief Complaint: Abdominal Pain Stated Complaint: ABD PAIN Time Seen by Provider: 02/09/23 08:29 History of Present Illness HPI narrative: Patient is a 37-year-old male who presents ER with right-sided abdominal pain. Progressing over last few days and worsening in the right lower quadrant. Patient was recently admitted to this hospital and had an ERCP that then resulted in pancreatitis. He had ampullary stenosis and underwent sphincterotomy. Patient has had subsequent return visits to the ER once for varicoceles once for abdominal pain. Patient did receive multiple CT scans of his chest and abdomen in 10-day. So most recent visit was without imaging. Patient reports significant increase in pain since last visit. No alleviating factors. Related Data Home Medications Medication Instructions Recorded Confirmed cetirizine 10 mg tablet (Zyrtec) 10 mg PO DAILY 07/01/22 01/27/23 fluticasone propionate 50 2 spray intranasal DAILY 01/10/23 01/27/23 mcg/actuation nasal spray,suspension Allergies Allergy/AdvReac Type Severity Reaction Status Date / Time No Known Allergies Allergy Unknown Verified 02/01/23 12:57 Review of Systems Review of Systems: All systems reviewed & are unremarkable except as noted in HPI and below Constitutional: Constitutional: Denies chills, Denies fatigue and Denies fever(s) ENT: Denies nasal congestion and Denies sore throat Cardiovascular: Cardiovascular: Denies chest pain, Denies rapid heart rate and Denies radiating jaw, neck or arm pain Respiratory: Respiratory: Denies cough and Denies dyspnea Gastrointestinal: Gastrointestinal: Reports abdominal pain, Reports heartburn, Denies diarrhea, Reports nausea and Denies vomiting Genitourinary: Genitourinary: Denies oliguria, Denies dysuria and Denies urinary frequency [facility] Past Medical History Medical History Elevated liver enzymes GERD (gastroesophageal reflux disease) Gout Hepatic steatosis Noted on CT scan 01/24/2023. Nausea and vomiting in adult Post-ERCP acute pancreatitis Seasonal allergies Upper abdominal pain Surgical History Surgical History History of cholecystectomy Family History Family History Other Family history non-contributory Social History Social History Social History: Surrogate medical decision maker: Jeanette Coker, spouse. Code status: Full code. Smoking status: Never smoker Alcohol use details: Rare alcohol use. Lack of Transportation: No Lack of Food: Never True Current Housing: I Have Housing Concerned About Future Housing: No Difficulty Paying Gas/Electric Bills: No Difficulty Paying for Meds: No Currently Unemployed: No Education: Associate Degree Difficulty w/ Childcare or Family Care: No Additional living arrangements comments: Lives with spouse and 3 children in [place]. Additional occupation/education comments: Works for [employer]. Spiritual care concerns: No Exam Narrative: GENERAL: Uncomfortable-appearing, morbidly obese, and in no acute distress. HEAD: Normocephalic, atraumatic. EYES: PERRL and EOMI. ENT: Mucous membranes moist. CHEST: Clear to auscultation. No respiratory distress. HEART: Tachycardic and regular. Normal peripheral pulses. ABDOMEN: Soft, tender to palpation right upper quadrant and right lower quadrant with moderate guarding, nondistended, normal active bowel sounds. EXTREMITIES: Normal range of motion. No edema. SKIN: Warm, dry, no rash. NEURO: Alert and oriented x3. PSYCH: Normal mood and affect. Course Course Emergency Course: Patient with increased fluid within abdomen. Concerning for developing abscess. Persistent acute pancreatitis also noted. Discussed kyra
[2023-02-09] MEDS: HYDROmorphone HCL INJ (*CRX) 1 MG/ML SYR IV PUSH ×4 (12:17→21:45)
[2023-02-09] MEDS: PANTOPRAZOLE SODIUM IV 40 MG VIAL IV PUSH (14:25)
[2023-02-09] MEDS: SODIUM CHLORIDE 0.9% IV 1,000 ML 200 ML IV CONT (19:01)
--- NOTE | 2023-02-09 22:51 | PC.NURSE ---
pt has a bed at [facility]. [id number]. Report called to NANCY Velasco. ETA for ems is 0000.
== END 2023-02-09 23:40 | disposition short-term general hospital (02) ==
PROVIDERS: Emergency Provider Emergency Medicine
DX: K85.90 Acute pancreatitis without necrosis or infection, unspecified (principal); K65.1 Peritoneal abscess; K21.9 Gastro-esophageal reflux disease without esophagitis; M10.9 Gout, unspecified
CPT/HCPCS: 36415; 74177; 80053; 83690; 85025; 85610; 85730; 87040; 96361; 96365; 96366; 96375; 96376; 99285; C9113; J1170; J2270; J2405; J2543; J7030; Q9967

== ENCOUNTER 2025-03-04 19:11 | Emergency (ER) | payer BC, SELFPAY ==
--- OUTSIDE RECORDS SUMMARY | 2025-03-04 19:13 | XMS_ITS | Encounter Summary ---
Author Organization [facility] Healthcare Address [address] [place] [address] Care Team Providers Care Summer Child Caregiver Name Role Phone Gauri Rock MD Primary Care Provider Leeann Denton DO Unavailable [phone]- [phone] Miscellaneous, Not In File Unavailable Unava ilable Roland Singh MD Unavailable [phone] Parvez Amezcua MD Unavailable [phone] Titi Adorno MD Unavailable [phone] Encounter Details Date Type Department Care Team (Late st Contact Info) Description 02/26/2023 Telephone [facility] - Interventional Radiology [address] [place] [address], RN Social History Tobacco Use Types Packs/Day Years Used Date Smoking Tobacco: Never Alcohol Use Standard Drinks/Week Comments Yes 0 (1 standard drink = 0.6 oz pur e alcohol) Social Connection and Isolat ion Panel [NHANES] Answer Date Recorded In a typical week, how many times do you talk on the phone with family, friends, or neighbors? More than three times a week 02/10/2023 How often do you get togethe r with friends or relatives? More than three times a week 02/10/2023 How often do you attend chur ch or adventist services? Never 02/10/2023 Do you belong to any clubs o r organizations such as samaritan groups, unions, fraternal or athletic groups, or school groups? No 02/10/2023 How often do you attend meet ings of the clubs or organizations you belong to? Never 02/10/2023 Are you , , di vorced, , never , or living with a partner? 02/10/2023 AUDIT-C Answer Date Recorded Q1: How often do you have a drink containing alc ohol? 2-4 times a month 07/31/2022 Q2: How many drinks containi ng alcohol do you have on a typical day when you are drinking? 5 or 6 07/31/2022 Q3: How often do you have si x or more drinks on one occasion? Never 07/31/2022 Overall Financial Resource Strain (CARDIA) Answe r Date Recorded How hard is it for you to pa y for the very basics like food, housing, medical care, and heating? Not very hard 02/10/2023 PHQ-2 Answer Date Recorded PHQ-2 Total Score (If total score is 3 or more points, staff should administer the PHQ-9) 0 07/31/2022 Hunger Vital Sign Answer Date Recorded Within the past 12 months, y ou worried that your food would run out before you got the money to buy more. Never true 02/11/20 23 Within the past 12 months, t he food you bought just didn't last and you didn't have money to get more. Never true 02/10/2023 PRAPARE - Transportation Answer Date Re corded In the past 12 months, has l ack of transportation kept you from medical appointments or from getting medications? No 01/23 In the past 12 months, has l ack of transportation kept you from meetings, work, or from getting things needed for daily living? No 02/10/2023 Housing Stability Vital Sign Answer Roshan e Recorded In the last 12 months, was t here a time when you were not able to pay the mortgage or rent on time? No 02/10/2023 In the last 12 months, how many places have you lived? 1 02/10/2023 In the last 12 months, was t here a time when you did not have a steady place to sleep or slept in a correction (including now)? 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 06/23/2023 12/22/2023 3:05 AM CDT COVID: Suspected 04/09/2024 04/09/2024 04/09/2024 8:31 AM CDT documented as of this encounter Care Teams Summer Child Caregiver Relationship Specialty Start Date End Date Gauri Rock MD PCP - General Internal Medicine 12/31/22 [place] [address] [place] [address] Consulting Physician Infectious Diseases 06/26/23 Miscellaneous, Not In File 06/26/23 Roland Singh MD [address] [place] [address] Consulting Physician Gastroenterology 06/26/23 Parvez Amezcua MD [address] [place] [address] Consulting Physician General Surgery 04/03/24 Titi Adorno MD [address] [facility] [address] [place] [address] Consulting Physician Pain Management 06/09/24 documented as of this encounter
--- OUTSIDE RECORDS SUMMARY | 2025-03-04 19:13 | XMS_ITS | Encounter Summary ---
Author Organization [facility] Healthcare Address [address] [place] [address] Care Team Providers Care Entry Level Account Executive Name Role Phone Gauri Rock MD Primary Care Provider Leeann Denton DO Unavailable [phone]- [phone] Miscellaneous, Not In File Unavailable Unava ilable Roland Singh MD Unavailable [phone] Parvez Amezcua MD Unavailable [phone] Titi Adorno MD Unavailable [phone] Encounter Details Date Type Department Care Team (Late st Contact Info) Description 03/16/2023 Orders Only [facility] Case Management [address] [place] [address] Fransisco Graves RPh Social History Tobacco Use Types Packs/Day Years [...] often do you attend chur ch or scientologist services? Never 02/10/2023 Do you belong to any clubs o r organizations such as rastafari groups, unions, fraternal or athletic groups, or school groups? No 02/10/2023 How often do you attend meet ings of the clubs or organizations you belong to? Never 02/10/2023 Are you , , di vorced, , never , or living with a partner? 02/10/2023 AUDIT-C Answer Date Recorded Q1: How often do you have a drink containing alc ohol? 2-4 times a month 03/10/2023 Q2: How many drinks containi ng alcohol do you have on a typical day when you are drinking? 3 or 4 03/10/2023 Q3: How often do you have si x or more drinks on one occasion? Never 03/10/2023 Overall Financial Resource Strain (CARDIA) Answe r [...] place to sleep or slept in a senior living (including now)? 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:54 PM [employer] DES[employer] Gender Identity Not on file Sexual Orientation [...] documented as of this encounter Care Teams Entry Level Account Executive Relationship Specialty Start Date End Date Gauri Rock MD PCP - General Internal Medicine 12/31/22 [place] [address] [place] [address] Consulting Physician Infectious Diseases 06/26/23 Miscellaneous, Not In File 06/26/23 Roland Singh MD [address] [place] [address] Consulting Physician Gastroenterology 06/26/23 Parvez Amezcua MD [address] [place] [address] Consulting Physician General Surgery 04/03/24 Titi Adorno MD [address] [facility] [address] [place] [address] Consulting Physician Pain Management 06/09/24 documented as of this encounter
--- OUTSIDE RECORDS SUMMARY | 2025-03-04 19:13 | XMS_ITS | Clinical Summary ---
Author Organization [facility] Care Team Providers Care Geophysics Teacher Name Role Phone Unavailable Primary Care Provider Unavailabl e Social History Tobacco Use Types Packs/Day Years Used Date Smoking Tobacco: Never Assessed Sex and Gender Information Value Date Recorded Sex Assigned at Not on file Legal Sex Male 7:09 PM CDT Gender Identity Not on file Sexual Orientation Not on file Plan of Treatment Not on file
--- OUTSIDE RECORDS SUMMARY | 2025-03-04 19:13 | XMS_ITS | Clinical Summary ---
Author Organization [facility] Address [address] [place] [address] Care Team Providers Care Residence Director Name Role Phone Gauri Rock MD Primary Care Provider Leeann Denton DO Unavailable [phone]- [phone] Miscellaneous, Not In File Unavailable Unava ilable Roland Singh MD Unavailable [phone] Parvez Amezcua MD Unavailable [phone] Titi Adorno MD Unavailable [phone] Allergies No known active allergies Medications azelastine (ASTELIN) 137 mcg (0.1 %) nasal sprayIndicatio ns:Seasonal Allergic Rhinitis Administer 1 spray into each nostril 2 (two) times a day Use in each nostril as directed Active cetirizine (ZyrTEC) 10 mg tabletIndicati ons:Seasonal Allergic Rhinitis Take 1 tablet (10 mg total) by mouth as needed for allergies 1 tab daily as needed Active polyethylene glycol (MIRALAX) 17 gram/dose bulk powderIndicati ons:constipati on Take 17 g by mouth daily As needed for constipation or if no bowel movement for over 1 day. May buy hphs-zcp-deewbp r if inadequate coverage by insurance plan. Take with 16 oz of additional water minimum. 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 -The following recommedations were made:-- Avoid constipation-please see detailed handout about the treatment of constipation which is not uncommon after surgery., -- Increased your daily exercise such as walking, stationary bicycle, elliptical graduate assistant athletic trainer, and treadmill. Please see the handout for details., -- Increase your water intake: Drink a minimum of 64 oz of water per day, but ideally I recommend 80- 100 oz of water per day. Please see the handout for details., -- Increase your protein intake: Fair life or Premier protein shakes especially encouraged, with 1-2 shakes per day consumption, cottage cheese, Georgian yogurt., and -- Avoid any heavy lifting for the time period as specified by the specific postoperative instruction sheet. May lift up to 25 lbs at this time. 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 Suarez -Given pain is more neuropathic in nature, instructed to increase Gabapentin to 600 mg bid, then after one week increase to three times per day. - Patient to see pain management next week. - Questions encouraged and answered to the patient's satisfaction. Patient to follow up in 4-[address] Amezcua. Patient instructed to call or contact the office or come back in for examination if there are any problems, questions, or concerns Class 3 severe obesity due t o excess calories with body mass index (BMI) of 40.0 to 44.9 in adult 01/31/2024 Acute on chronic cholecystitis 08/14/2023 Status post cholecystectomy 08/07/2023 History of biliary duct stent placement 08/07/20 Retained gallstones following laparoscopic vasu cystectomy 07/13/2023 Epigastric pain 06/23/2023 Choledocholithiasis with obstruction 06/23/2023 Neck mass 06/23/2023 Pancreatitis, necrotizing 03/19/2023 Assessment & Plan (04/23/2023 3:11 PM CDT): - Clinically doing well on exam today. He has been on IV ertapenem for 8 weeks at this point. He has [address] and has had debridement of pancreatic necrosis during last 2 IR visits. He has some abdominal pain but no fevers, chills, or night sweats. He will follow up with IR next week. - Given source control with IR drainage and that he is clinically doing well it was decided to discontinue IV ertapenem today as he has received 8 weeks of therapy. We discussed that he should continue to monitor for signs or symptoms of infection and continue to follow up with IR. He will call if he has any issues - Discussed with patient the rational for treatment, culture results, risk of recurrent infection, signs/symptoms of recurrent infection, and to contact ID clinic with any questions or concerns Severe malnutrition 02/12/2023 Acute pancreatitis with infected necrosis 2022 Spinal stenosis 02/10/2023 Low back pain 07/31/2022 Allergies 07/31/2022 Resolved Problems Problem Noted Date Diagnosed Date Resolved Date On total parenteral nutrition 02/12/2023 04/06/2023 Sepsis without acute organ dysfunction 02/10/2023 04/06/2023 Encounters Date Type Department Care Team Description 03/01/2025 Results Follow-Up [facility] [address] [place] [address] [place] [address] Gauri Rock MD Lipid panel, Hemoglobin A1c, Comprehensive metabolic panel, Additional followed-up results: 3 02/28/2025 11:30 AM CDT Lab [facility] Out[facility] Lab at [address] [address] 02/28/2025 11:29 AM CDT - 02/28/2025 11:59 PM CDT Hospital Encounter [address] [address] Screening for lipid disorders; Elevated fasting glucose; Screening for metabolic disorder Discharge Disposition: Discharge to home or self care 02/16/2025 10:20 AM CDT Office Visit [facility] [address] [place] [address] [place] [id number] Gauri Rock MD Screening for metabolic disorder (Primary Dx); Screening for lipid disorders; Elevated fasting glucose from Last 3 Months Immunizations Immunization Administration Dates Next Due Influenza, Quadrivalent, Jeaneth l Culture-based MDCK, Preservative Free, Antibiotic Free, Intramuscular 06/18/2023 Influenza, Quadrivalent, Split, Intramuscular Influenza, Quadrivalent, Spl it, Preservative Free, Intramuscular 06/13/2020,06/24/2018 Influenza, Trivalent, IM (MDV) 05/26/2017,2012 Tdap 02/23/2017,12/17/2012 Surgical History Surgery Date Site/Laterality Comments CHOLECYSTECTOMY x2 (some GB missed with 1st surgery) IMAGE GUIDED DRAINAGE PERITO MESSI OR RETROPERITONEAL FLUID COLLECTION 02/10/2023 N/A ABSCESS CATHETER INJECTION 03/12/2023 N/A ABSCESS TUBE EXCHANGE 03/16/2023 N/A ABSCESS CATHETER INJECTION 04/01/2023 N/A ABSCESS TUBE EXCHANGE 04/16/2023 N/A ABSCESS TUBE EXCHANGE 04/30/2023 N/A ABSCESS CATHETER INJECTION 05/21/2023 N/A ERCP JEJUNOSTOMY FEEDING TUBE LAPAROSCOPIC INCISIONAL / UMBILICAL / VENTRAL HERNIA REPAIR 04/01/2024 Robotic assisted IMAGE GUIDED DRAINAGE PERITO MESSI OR RETROPERITONEAL FLUID COLLECTION 04/09/2024 N/A Medical History Medical History Date Comments Pancreatitis Ventral incisional hernia with obstruction Morbid obesity with BMI of 40.0-44.9, adult (HCC ) BMI 41 Gastroesophageal reflux disease without esophagi tis 04/09/2024 Family History Medical History Relation Name Comments Diabetes Father Robert Sr Transient ischemic attack Father Robert Leonard Sarcoidosis Mother Alzheimer's disease Paternal Grandfather Robert Leonard Relation Name Status Comments Father Robert Leonard Mother Paternal Grandfather Robert Leonard Alive Social History Tobacco Use Types Packs/Day Years Used Date Smoking Tobacco: Never Smokeless Tobacco: Never Tobacco Cessation:Counseling Given: Not Answered Alcohol Use Standard Drinks/Week Comments Yes 0 (1 standard drink = 0.6 oz pur e alcohol) OASIS D0700: Social Isolation Answer Da te Recorded Frequency of experiencing loneliness or isolatio n Never 06/21/2024 OASIS A1250: Transportation Answer Date Recorded Lack of Transportation (Medical) No 06/21/2024 Lack of Transportation (Non-Medical) No 06/21/2024 Patient Unable or Declines to Respond No 06/21/2024 OASIS B1300: Health Literacy Answer Roshan e Recorded Frequency of needing help to read materials from doctor or pharmacy Never 06/21/2024 [facility] Utilities Answer Date Recorded In the past 12 months has e [place], gas, oil, or water [employer] threatened to shut off services in your home? No 04/11/2024 Social Connection and Isolat ion Panel [NHANES] Answer Date Recorded In a typical week, how many times do you talk on the phone with family, friends, or neighbors? More than three times a week 04/11/2024 How often do you get togethe r with friends or relatives? Twice a week 04/11/2024 How often do you attend chur ch or hindu services? Never 04/11/2024 Do you belong to any clubs o r organizations such as islam groups, unions, fraternal or athletic groups, or school groups? No 04/11/2024 How often do you attend meet ings of the clubs or organizations you belong to? Never 04/11/2024 Are you , , di vorced, , never , or living with a partner? 04/11/2024 AUDIT-C Answer Date Recorded Q1: How often do you have a drink containing alcohol? Never 03/18/2024 Q2: How many drinks containi ng alcohol do you have on a typical day when you are drinking? Patient does not drink Q3: How often do you have si x or more drinks on one occasion? Never 03/18/2024 Overall Financial Resource Strain (CARDIA) Answe r Date Recorded How hard is it for you to pa y for the very basics like food, housing, medical care, and heating? Not hard at all 04/11/2024 PHQ-2 Answer Date Recorded PHQ-2 Total Score (If total score is 3 or more points, staff should administer the PHQ-9) 0 02/09/2025 Hunger Vital Sign Answer Date Recorded Within the past 12 months, y ou worried that your food would run out before you got the money to buy more. Never true 04/11/20 24 Within the past 12 months, t he food you bought just didn't last and you didn't have money to get more. Never true 04/11/2024 PRAPARE - Transportation Answer Date Re corded In the past 12 months, has l ack of transportation kept you from medical appointments or from getting medications? No 03/24 In the past 12 months, has l ack of transportation kept you from meetings, work, or from getting things needed for daily living? No 04/11/2024 Housing Stability Vital Sign Answer Roshan e Recorded In the last 12 months, was t here a time when you were not able to pay the mortgage or rent on time? No 06/25/2023 In the last 12 months, how many places have you lived? 1 06/25/2023 In the last 12 months, was t here a time when you did not have a steady place to sleep or slept in a fci (including now)? No 06/25/2023 Housing Stability Vital Sign Answer Roshan e Recorded In the last 12 months, was t here a time when you were not able to pay the mortgage or rent on time? No 04/11/2024 In the past 12 months, how m any times have you moved where you were living? 0 04/11/2024 At any time in the past 12 m [facility], were you homeless or living in a fci (including now)? No 04/11/2024 Personal Safety Answer Date Recorded Have you ever been in or are you currently in a harmful physical or emotional relationship or is someone making you feel afraid or unsafe? 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 Inhaled Oxygen Concentration - - Weight 142 kg (313 lb) 02/16/2025 10:23 AM CDT Height 182.9 cm (6') 02/16/2025 10:23 AM CDT Body Mass Index 42.45 02/16/2025 10:23 AM CDT Plan of Treatment Health Maintenance Due Date Last Done Comments Regular Well Visit/Exam 18-64 2001 Influenza Vaccine (#1) 2025 , 07/09/2022, 06/13/2020, Additional history exists Depression Screening 02/16/2026 02/16/2025, 07/31/20 22 DTaP/Tdap/Td Vaccine (3 - Td or Tdap) 02/23/2027 02/23/2017, 12/17/2012 Hepatitis B Screening Completed 03/10/2024 Hepatitis C Screening Completed 03/10/2024 HPV Vaccines Aged Out No longer eligi ble based on patient's age to complete this topic Pneumococcal vaccine <65 Aged Out No longer eligible based on patient's age to complete this topic Varicella Vaccines Discontinued Medical Devices Implanted Type Area Creative Project Manager Device Identifier Shelf Expiration Date Model / Serial / Lot Probiodrug Inc/C R Bard [id number] Monofilament Soft Lightweight Low Profile Square - Sna - [id number] Implanted:Qty: 1 on 04/01/2024 by Parvez Amezcua MD at [facility] Mesh N/A: Abdomen [employer]/C R [employer] 03/20/2028 [id number] / NA / [id number] Explanted Type Area Creative Project Manager Device Identifier Shelf Expiration Date Model / Serial / Lot Jack Erwin [place] Viabil 10 Mm X 4cm Shortwire [id number] - [id number] - [id number] Implanted:Qty: 1 on 06/24/2023 by Eleuterio Vega MD at [facility] Explanted:Qty: 1 on 08/27/2023 by Rico Solares MD at [facility] Stent N/A: Bile Duct Conmed [place] 11/08/2025 [id number] / [id number] / Procedures Procedure Name Priority Date/Time Associated Diagnosis Comments EGFR Routine 02/28/2025 11:29 AM CDT Screening for metabolic disorder DIFFERENTIAL AUTO Routine 02/28/2025 11: 29 AM CDT Screening for metabolic disorder CBC WITH AUTO DIFFERENTIAL Routine 02/28/2025 11:29 AM CDT Screening for metabolic disorder COMPREHENSIVE METABOLIC PANEL Routine 02/28/2025 11:29 AM CDT Screening for metabolic disorder HEMOGLOBIN A1C Routine 02/28/2025 11:29 AM CDT Elevated fasting glucose LIPID PANEL Routine 02/28/2025 11:29 AM CDT Screening for lipid disorders HEPATITIS C ANTIBODY Routine 03/10/2024 4:56 PM CDT Epigastric pain Screening for viral disease from Last 3 Months or Most Recently Relevant to Health Maintenance Results * eGFR (02/28/2025 11:29 AM CDT) eGFR >90 >=60 mL/min/1. 73 m2 Comment: Interpretive Data Reference Interval Normal >/= 90 mL/min/1.73m2 Mildly decreased* 60 - 89 mL/min/1.73m2 Mildly to moderately decreased 45 - 59 mL/min/1.73m2 Moderately to severely decreased 30 - 44 mL/min/1.73m2 Severely decreased 15 - 29 mL/min/1.73m2 Kidney Failure < 15 mL/min/1.73m2 *Relative to young adult level Estimated glomerular filtration rate is determined by the 2020 CKD-EPI equation recommended by the National Kidney Foundation (A Unifying Approach to GFR Estimation: Recommendations of the NKF-ASK Task Force on Reassessing the Inclusion of Race in Diagnosing Kidney Disease, JASN 202). The CKD-EPI equation should not be used for patients with unstable renal function and has not been validated in children and those over 70. Current interpretive data was last reviewed 2021. Blood 02/28/2025 11:2 9 AM CDT 02/28/2025 8:12 PM CDT us Gauri Rock MD LAB BLOOD ORDERABLES F inal Result [facility] [address] [place] [address] * Differential, auto (02/28/2025 11:29 AM CDT) Neutrophil abs 6.26 1.50 - 6.50 K/cumm Imm gran abs 0.05 0.00 - 0.10 K/cumm [facility] Lymphocyte abs 1.42 0.80 - 3.30 K/cumm [facility] Monocyte abs 0.73 0.20 - 0.80 K/cumm [facility] Eosinophil abs 0.07 0.00 - 0.50 K/cumm [facility] Basophil abs 0.04 0.00 - 0.10 K/cumm [facility] Neutrophil pct 73.0 % [facility] Comment: Interpretive Data Percent cell count reference ranges are not reported, since discordance with absolute values may lead to misinterpretation of CBC data. Current Interpretive Data was last revised on 2017. Imm gran pct 0.6 % [facility] Comment: Interpretive Data Percent cell count reference ranges are not reported, since discordance with absolute values may lead to misinterpretation of CBC data. Current Interpretive Data was last revised on 2017. Lymphocyte pct 16.6 % [facility] Comment: Interpretive Data Percent cell count reference ranges are not reported, since discordance with absolute values may lead to misinterpretation of CBC data. Current Interpretive Data was last revised on 2017. Monocyte pct 8.5 % [facility] Comment: Interpretive Data Percent cell count reference ranges are not reported, since discordance with absolute values may lead to misinterpretation of CBC data. Current Interpretive Data was last revised on 2017. Eosinophil pct 0.8 % [facility] Comment: Interpretive Data Percent cell count reference ranges are not reported, since discordance with absolute values may lead to misinterpretation of CBC data. Current Interpretive Data was last revised on 2017. Basophil pct 0.5 % [facility] Comment: Interpretive Data Percent cell count reference ranges are not reported, since discordance with absolute values may lead to misinterpretation of CBC data. Current Interpretive Data was last revised on 2017. Blood 02/28/2025 11:2 9 AM CDT 02/28/2025 6:50 PM CDT Gauri oRck MD LAB BLOOD ORDERABLES F inal Result [facility] [address] [place] [address] * CBC with auto differential (02/28/2025 11:29 AM CDT) WBC 8.57 3.80 - 9.90 K/cumm Hgb 15.3 13.0 - 17.5 g/dL [facility] Hct 45.9 38.9 - 50.3 % [facility] Plt 336 150 - 400 K/cumm [facility] MPV 9.2 9.1 - 12.3 fL [facility] RBC 4.92 4.30 - 5.80 M/cumm [facility] MCV 93.3 81.3 - 96.4 fL [facility] MCH 31.1 27.1 - 33.3 pg [facility] MCHC 33.3 32.3 - 35.7 g/dL [facility] RDW CV 12.8 11.1 - 14.9 % [facility] RDW SD 43.8 35.7 - 48.1 fL [facility] NRBC abs 0.00 0.00 - 0.01 K/cumm [facility] Blood 02/28/2025 11:2 9 AM CDT 02/28/2025 6:50 PM CDT us Gauri Rock MD LAB BLOOD ORDERABLES F inal Result Performing Organization Address [facility] Co de Phone Number DENNIS CARBAJAL [address] [place] [address] * (ABNORMAL) Hemoglobin A1c (02/28/2025 11:29 AM CDT) Hgb A1C 5.9(H) 4.0 - 5.6 % Estimated Average Glucose 123 mg/dL [facility] Comment: The ADA recommends reporting an estimated Average Glucose (eAG) with all Hemoglobin A1c results using the equation derived from a study of 507 normal and diabetic adults. Minority populations were underrepresented and children were not included. (Diabetes Care 31:7325-6598, 2008). The eAG is not equivalent to a fasting glucose. Blood 02/28/2025 11:2 9 AM CDT 02/28/2025 6:50 PM CDT Gauri Rock MD LAB BLOOD ORDERABLES F inal Result Performing Organization Address [facility] de Phone Number DENNIS CARBAJAL [address] [place] [address] * (ABNORMAL) Lipid panel (02/28/2025 11:29 AM CDT) Cholesterol 180 30 - 199 mg/dL Comment: Interpretive Data Ages < or = 19 years Acceptable: <170 mg/dL Borderline high: 170-199 mg/dL High: >or= 200 mg/dL Ages > or = 20 years Desirable: <200 mg/dL Borderline high: 200-239 mg/dL High: >or= 240 mg/dL Literature References: 1. Expert Panel on Integrated Guidelines for Cardiovascular Health and Risk Reduction in Children and Adolescents. Pediatrics 2011;128:S213 2. NCEP Expert Panel. Circulation 2004;110:227 Current Interpretive Data was last revised on 2018. Triglycerides 253(H) <=149 mg/dL [facility] CAR[facility]AL Comment: Interpretive Data Ages < or = 9 years Acceptable: <75 mg/dL Borderline high: 75-99 mg/dL High: >or= 100 mg/dL Ages 10 to 20 years Acceptable: <90 mg/dL Borderline high: 90-129 mg/dL High: >or= 130 mg/dL Ages > or = 20 years Desirable: <150 mg/dL Borderline high: 150-199 mg/dL High: 200-499 mg/dL Very high: >or= 499 mg/dL Literature References: 1. Expert Panel on Integrated Guidelines for Cardiovascular Health and Risk Reduction in Children and Adolescents. Pediatrics 2011;128:S213 2. NCEP Expert Panel. Circulation 2004;110:227 Current Interpretive Data was last revised on 2018. HDL 29(L) >=40 mg/dL [facility]NIS Comment: Interpretive Data Ages < or = 19 years Acceptable: >45 mg/dL Borderline low: 40-45 mg/dL Low: <40 mg/dL Ages > or = 20 years Desirable: >or= 60 mg/dL Low: <40 mg/dL Literature References: 1. Expert Panel on Integrated Guidelines for Cardiovascular Health and Risk Reduction in Children and Adolescents. Pediatrics 2011;128:S213 2. NCEP Expert Panel. Circulation 2004;110:227 Current Interpretive Data was last revised on 2018. LDL, calculated 107 <=129 mg/dL DENNIS Comment: Interpretive Data Ages < or = 19 years Acceptable: <110 mg/dL Borderline high: 110-129 mg/dL High: >or= 130 mg/dL Ages > or = 20 years Optimal: <100 mg/dL Near optimal: 100-129 mg/dL Borderline high: 130-159 mg/dL High: >160 mg/dL Calculated using the Carson LDL-C estimating equation. This equation was implemented on 2024. Prior to this date LDL-C was estimated using the Friedewald equation. Literature References: 1. Expert Panel on Integrated Guidelines for Cardiovascular Health and Risk Reduction in Children and Adolescents. Pediatrics 2011;128:S213 2. NCEP Expert Panel. Circulation 2004;110:227 3. Carson Mireles al. MAC Cardiol. 2020 December 22;5(5):540-548. doi: 10.1001/jamacardio.2020.0013 Current Interpretive Data was last revised on 2024. Non-HDL Cholesterol 151 mg/dL [facility] Comment: Interpretive Data Ages < or = 19 years Acceptable: <120 mg/dL Borderline high: 120-144 mg/dL High: >145 mg/dL Ages > or = 20 years When triglycerides are >200 mg/dL, Non-HDL cholesterol is a secondary target of therapy with treatment goals that are 30 mg/dL greater than the LDL cholesterol target. Literature References: 1. Expert Panel on Integrated Guidelines for Cardiovascular Health and Risk Reduction in Children and Adolescents. Pediatrics 2011;128:S213 2. NCEP Expert Panel. Circulation 2004;110:227 Current Interpretive Data was last revised on 2018. Chol/HDL ratio 6 [facility] Blood 02/28/2025 11:2 9 AM CDT 02/28/2025 6:50 PM CDT Gauri Rock MD LAB BLOOD ORDERABLES F inal Result [facility] [address] [place] [address] * Comprehensive metabolic panel (02/28/2025 11:29 AM CDT) Sodium 137 135 - 145 mmol/L Potassium, pl 4.4 3.3 - 4.9 mmol/L [facility] Chloride 101 97 - 110 mmol/L [facility] CO2 24 22 - 32 mmol/L [facility] Anion gap 12 2 - 15 mmol/L [facility] BUN 12 6 - 25 mg/dL [facility] Creatinine 0.95 0.80 - 1.30 mg/dL [facility] Glucose 99 70 - 199 mg/dL [facility] Comment: Interpretive Data Fasting glucose >/= 126 mg/dl is diagnostic for diabetes. Fasting is defined as no caloric intake for at least 8 hours. Fasting glucose between 100 mg/dl to 125 mg/dl is diagnostic of prediabetes. In a patient with classic symptoms of hyperglycemia or hyperglycemic crisis, a random glucose >/= 200 mg/dl is diagnostic for diabetes. In the absence of unequivocal hyperglycemia, results should be confirmed by repeat testing. The classification and Diagnosis of Diabetes Diabetes Care 202; 46: S19-S40. Current interpretive data was last revised 2022. Calcium 9.3 8.5 - 10.3 mg/dL [facility] Bilirubin, total 0.5 0.1 - 1.2 mg/dL [facility] Protein, pl 7.9 6.5 - 8.5 g/dL [facility] Albumin 4.2 3.5 - 5.0 g/dL [facility] Alk phos 121 40 - 130 Units/L [facility] ALT 39 7 - 55 Units/L [facility] AST 29 10 - 50 Units/L [facility] Blood 02/28/2025 11:2 9 AM CDT 02/28/2025 6:50 PM CDT Gauri Rock MD LAB BLOOD ORDERABLES F inal Result [facility] [address] Department [place] [address] * Hepatitis C antibody Blood (03/10/2024 4:56 PM CDT) Hep C Ab Nonreactive Nonreactive Comment:Antibodies to HCV no t detected. Does NOT exclude the possibility of recent exposure to HCV. Current interpretive data was last revised on 22 Blood 03/10/2024 4:56 PM CDT 03/10/2024 5:26 PM CDT Gauri Rock MD LAB MICROBIOLOGY - GEN ERAL ORDERABLES Final Result [facility] [place] [address] from Last 3 Months or Most Recently Relevant to Health Maintenance Insurance [place] RE[employer] O[employer] [place] [employer] [place] [employer] [place] [employer] OOS Advance Directives For more information, please contact: [phone] * Full Code (Latest Code Status on File) Date Activated Date Inactivated Comments 04/09/2024 11:10 AM 04/26/2024 6:48 PM * Full Code Date Activated Date Inactivated Comments 04/01/2024 6:48 PM 04/03/2024 7:44 PM * Full Code Date Activated Date Inactivated Comments 06/23/2023 10:18 PM 06/26/2023 4:49 PM * Full Code Date Activated Date Inactivated Comments 05/27/2023 10:59 AM 05/27/2023 8:17 PM * Full Code Date Activated Date Inactivated Comments 04/30/2023 2:23 PM 05/01/2023 5:16 AM Care Teams Residence Director Relationship Specialty Start Date End Date Gauri Rock MD PCP - General Internal Medicine 12/31/22 [place] [address] [place] [address] Consulting Physician Infectious Diseases 06/26/23 Miscellaneous, Not In File 06/26/23 Roland Singh MD [address] [place] [address] Consulting Physician Gastroenterology 06/26/23 Parvez Amezcua MD [address] [place] [address] Consulting Physician General Surgery 04/03/24 Titi Adorno MD 1 [facility] DEPT [place] [address] Consulting Physician Pain Management 06/09/24
--- OUTSIDE RECORDS SUMMARY | 2025-03-04 19:13 | XMS_ITS | Encounter Summary ---
Author Organization [facility] Healthcare Address [address] [place] [address] Care Team Providers Care Tool Supervisor Name Role Phone Gauri Rock MD Primary Care Provider Leeann Denton DO Unavailable [phone]- [phone] Miscellaneous, Not In File Unavailable Unava ilable Roland Singh MD Unavailable [phone] Parvez Amezcua MD Unavailable [phone] Titi Adorno MD Unavailable [phone] Encounter Details Date Type Department Care Team (Late st Contact Info) Description 03/30/2023 Telephone [facility] - Interventional Radiology [address] [place] [address] Almaz Parks RN Social History Tobacco Use Types Packs/Day Years Used Date Smoking Tobacco: Never Alcohol Use Standard Drinks/Week Comments Yes 0 (1 standard drink = 0.6 oz pur e alcohol) OASIS D0700: Social Isolation Answer Da te Recorded Frequency of experiencing loneliness or isolatio n Never 03/24/2023 Social Connection and Isolat ion Panel [NHANES] Answer Date Recorded In a typical week, how many times do you talk on the phone with family, friends, or neighbors? More than three times a week 02/10/2023 How often do you get togethe r with friends or relatives? More than three times a week 02/10/2023 How often do you attend [facility] or rastafarian services? Never 02/10/2023 Do you belong to any clubs o r organizations such as mormonism groups, unions, fraternal or athletic groups, or [...] place to sleep or slept in a detention (including now)? 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 Current interpretive data was last revised on 2019. Blood 04/01/2023 8:21 AM CDT 04/01/2023 8:28 AM CDT us Deandre Dumas MD PhD LAB BLOOD ORDERABLES Ruby lowery Result [facility] [address] Department of Laboratories [place], [place] [address] * (ABNORMAL) CBC with auto differential (04/01/2023 8:21 AM CDT) WBC 15.1(H) 3.8 - 9.9 K/cumm [facility] Hgb 12.1(L) 13.0 - 17.5 g/dL [facility] Hct 37.0(L) 38.9 - 50.3 % [facility] Plt 571(H) 150 - 400 K/cumm [facility] MPV 8.7(L) 9.1 - 12.3 fL [facility] RBC 4.10(L) 4.30 - 5.80 M/cumm [facility] MCV 90.2 81.3 - 96.4 fL [facility] MCH 29.5 27.1 - 33.3 pg [facility] MCHC 32.7 32.3 - 35.7 g/dL [facility] RDW CV 13.5 11.1 - 14.9 % [facility] RDW SD 45.1 35.7 - 48.1 fL [facility] NRBC abs 0.00 0.00 - 0.01 K/cumm [facility] Blood 04/01/2023 8:21 AM CDT 04/01/2023 8:28 AM CDT us Deandre Dumas MD PhD LAB BLOOD ORDERABLES Ruby l Result [facility] [address] Department [place] [address] documented in this encounter Visit Diagnoses Diagnosis Pancreatitis, necrotizing- Primary Acute pancreatitis documented in this encounter Additional Health Concerns 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 06/23/2023 12/22/2023 3:05 AM CDT COVID: Suspected 04/09/2024 04/09/2024 04/09/2024 8:31 AM CDT documented as of this encounter Care Teams Tool Supervisor Relationship Specialty Start Date End Date Gauri Rock MD PCP - General Internal Medicine 12/31/22 [place] [address] [place] [address] Consulting Physician Infectious Diseases 06/26/23 Miscellaneous, Not In File 06/26/23 Roland Singh MD [address] [place] [address] Consulting Physician Gastroenterology 06/26/23 Parvez Amezcua MD [address] [place] [address] Consulting Physician General Surgery 04/03/24 Titi Adorno MD 1 [facility] [place] [address] Consulting Physician Pain Management 06/09/24 documented as of this encounter
--- OUTSIDE RECORDS SUMMARY | 2025-03-04 19:13 | XMS_ITS | Referral Summary ---
Author Organization [facility] Address [address] [place] [address] Care Team Providers Care Coat Finisher Name Role Phone Gauri Rock MD Primary Care Provider Leeann Denton DO Unavailable [phone] Miscellaneous, Not In File Unavailable Unava ilable Roland Singh MD Unavailable [phone] Parvez Amezcua MD Unavailable [phone] Titi Adorno MD Unavailable [phone] Encounters Date Type Department Care Team Description 03/01/2025 Results Follow-Up [address] [place] [address] [place] [address] Gauri Rock MD Lipid panel, Hemoglobin A1c, Comprehensive metabolic panel, Additional followed-up results: 3 02/28/2025 11:29 AM CDT - 02/28/2025 11:59 PM CDT Hospital Encounter [facility] [address] [place] [address] Screening for lipid disorders; Elevated fasting glucose; Screening for metabolic disorder Discharge Disposition: Discharge to home or self care 02/28/2025 11:[address] [facility] Outpatient Lab at [address] [address] 02/16/2025 10:20 AM CDT Office Visit [address] [place] [address] [place] [address] Gauri Rock MD Screening for metabolic disorder (Primary Dx); Screening for lipid disorders; Elevated fasting glucose from Last 3 Months Allergies No known active allergies Medications azelastine [...] movement for over 1 day. May buy [id number] r if inadequate coverage by insurance plan. [...] 1 10/09/2023 Wound infection after surgery 05/04/2024 group home current use of antibiotics 04/19/2024 Sepsis without [...] exercise such as walking, stationary bicycle, elliptical head animal trainer, and treadmill. Please see the handout for details., -- Increase your water intake: Drink a minimum of 64 oz of water per day, but ideally I recommend 80- 100 oz of water per day. Please see the handout for details., -- Increase your protein intake: Fair life or Premier protein shakes especially encouraged, with 1-2 shakes per day consumption, cottage cheese, Yakut yogurt., and -- Avoid any heavy lifting for the time period as specified by the specific postoperative instruction sheet. May lift up to 25 lbs at this time. 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 [...] History of biliary duct stent placement 08/07/20 23 Retained gallstones following laparoscopic vasu cystectomy 07/13/2023 [...] Sepsis without acute organ dysfunction 02/10/2023 04/06/2023 Immunizations Immunization Administration Dates Next Due Influenza, Quadrivalent, Jeaneth l Culture-based MDCK, Preservative Free, Antibiotic Free, Intramuscular 06/18/2023 Influenza, Quadrivalent, Split, Intramuscular Influenza, Quadrivalent, Spl it, Preservative Free, Intramuscular 06/13/2020,06/24/2018 Influenza, Trivalent, IM (MDV) 05/26/2017,2012 Tdap 02/23/2017,12/17/2012 Social History Tobacco Use Types Packs/Day Years [...] materials from doctor or pharmacy Never 06/21/2024 [facility] Utilities Answer Date Recorded In the past 12 months has th e [employer], gas, oil, or water [employer] threatened to shut off services in your [...] often do you attend chur ch or nondenominational services? Never 04/11/2024 Do you belong to any clubs o r organizations such as latter-day groups, unions, fraternal or athletic groups, or [...] place to sleep or slept in a half-way (including now)? No 06/25/2023 Housing Stability Vital Sign Answer Roshan e Recorded In the last 12 months, was t here a time when you were not able to pay the mortgage or rent on time? No 04/11/2024 In the past 12 months, how m any times have you moved where you were living? 0 04/11/2024 At any time in the past [address] [facility], were you homeless or living in a half-way (including now)? No 04/11/2024 Personal Safety Answer Date Recorded Have you ever been in or are you currently in a harmful physical or emotional relationship or is someone making you feel afraid or unsafe? 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 Gender Identity Not on file Sexual Orientation Not on file Last Filed Vital Signs Vital Sign Reading Time Taken Comments Blood Pressure 123/86 02/16/2025 10:23 AM CDT Pulse 93 02/16/2025 10:23 AM CDT Temperature 36.4 C (97.5 F) 02/16/2025 10:23 AM CDT Respiratory Rate 18 06/21/2024 9:23 AM CDT Oxygen Saturation 95% 08/18/2024 11:19 AM LOG CLERK Inhaled Oxygen Concentration - - Weight 142 kg (313 lb) 02/16/2025 10:23 AM CDT Height 182.9 cm (6') 02/16/2025 10:23 AM CDT Body Mass Index 42.45 02/16/2025 10:23 AM CDT Plan of Treatment Not on file Medical Devices Implanted Type Area Delivery Helper Device Identifier Shelf Expiration Date Model / Serial / Lot [employer] Inc/C R Bard [id number] Monofilament Soft Lightweight Low Profile Square - Sna - [id number] Implanted:Qty: 1 on 04/01/2024 by Parvez Amezcua MD at [facility] Mesh N/A: Abdomen [employer]/C R Bard 03/20/2028 [id number] / NA / [id number] Explanted Type Area Delivery Helper Device Identifier Shelf Expiration Date Model / Serial / Lot Conmed Wellington Viabil 10 Mm X 4cm Shortwire [id number] - [id number] - [id number] Implanted:Qty: 1 on 06/24/2023 by Eleuterio Vega MD at [facility] Explanted:Qty: 1 on 08/27/2023 by Rico Solares MD at [facility] Stent N/A: Bile Duct Conmed Wellington 11/08/2025 [id number] / [id number] / Procedures Procedure Name Priority Date/Time Associated [...] 9 AM CDT 02/28/2025 8:12 PM CDT Gauri Rock MD LAB BLOOD ORDERABLES F inal Result [facility] [address] [place] [address] * Differential, auto (02/28/2025 11:29 AM CDT) Neutrophil abs 6.26 1.50 - 6.50 K/cumm Imm gran abs 0.05 0.00 - 0.10 K/cumm [facility] Lymphocyte abs 1.42 0.80 - 3.30 K/cumm [facility] Monocyte abs 0.73 0.20 - 0.80 K/cumm [facility] Eosinophil abs 0.07 0.00 - 0.50 K/cumm [facility] Basophil abs 0.04 0.00 - 0.10 K/cumm [facility] Neutrophil pct 73.0 % [facility] Comment: Interpretive Data Percent cell count reference ranges are not reported, since discordance with absolute values may lead to misinterpretation of CBC data. Current Interpretive Data was last revised on 2017. Imm gran pct 0.6 % [facility] Comment: Interpretive Data Percent cell count reference ranges are not reported, since discordance with absolute values may lead to misinterpretation of CBC data. Current Interpretive Data was last revised on 2017. Lymphocyte pct 16.6 % [facility] Comment: Interpretive Data Percent cell count reference ranges are not reported, since discordance with absolute values may lead to misinterpretation of CBC data. Current Interpretive Data was last revised on 2017. Monocyte pct 8.5 % [facility] Comment: Interpretive Data Percent cell count reference ranges are not reported, since discordance with absolute values may lead to misinterpretation of CBC data. Current Interpretive Data was last revised on 2017. Eosinophil pct 0.8 % [facility] Comment: Interpretive Data Percent cell [...] MD LAB BLOOD ORDERABLES F inal Result [facility] [address] Department of Laboratories [place], [place] [id number] * CBC with auto differential (02/28/2025 11:29 AM CDT) WBC 8.57 3.80 - 9.90 K/cumm Hgb 15.3 13.0 - 17.5 g/dL [facility] Hct 45.9 38.9 - 50.3 % [facility] Plt 336 150 - 400 K/cumm [facility] MPV 9.2 9.1 - 12.3 fL [facility] RBC 4.92 4.30 - 5.80 M/cumm [facility] MCV 93.3 81.3 - 96.4 fL [facility] MCH 31.1 27.1 - 33.3 pg [facility] MCHC 33.3 32.3 - 35.7 g/dL [facility] RDW CV 12.8 11.1 - 14.9 % [facility] RDW SD 43.8 35.7 - 48.1 fL [facility] NRBC abs 0.00 0.00 - 0.01 K/cumm [facility] Blood 02/28/2025 11:2 9 AM CDT 02/28/2025 6:50 PM CDT Gauri Rock MD LAB BLOOD ORDERABLES F inal Result Performing Organization Address [facility] de Phone Number [facility] [address] [place] [address] * (ABNORMAL) Hemoglobin A1c (02/28/2025 11:29 AM CDT) Hgb A1C 5.9(H) 4.0 - 5.6 % Estimated Average Glucose 123 mg/dL [facility] Comment: The ADA recommends reporting an estimated Average Glucose (eAG) with all Hemoglobin A1c results using the equation derived from a study of 507 normal and diabetic adults. Minority populations were underrepresented and children were not included. (Diabetes Care 31:0200-8224, 2008). The eAG is not equivalent to a fasting glucose. Blood 02/28/2025 11:2 9 AM CDT 02/28/2025 6:50 PM CDT Gauri Rock MD LAB BLOOD ORDERABLES F inal Result Performing Organization Address [facility] de Phone Number [facility] [address] [place] [address] * (ABNORMAL) Lipid panel (02/28/2025 11:29 AM [...] on 2018. Triglycerides 253(H) <=149 mg/dL [facility] Comment: Interpretive Data Ages < [...] on 2018. HDL 29(L) >=40 mg/dL [facility] Comment: Interpretive Data Ages [...] 2018. LDL, calculated 107 <=129 mg/dL [facility] Comment: Interpretive Data Ages < or = 19 years Acceptable: <110 mg/dL Borderline high: 110-129 mg/dL High: >or= 130 mg/dL Ages > or = 20 years Optimal: <100 mg/dL Near optimal: 100-129 mg/dL Borderline high: 130-159 mg/dL High: >160 mg/dL Calculated using the Byrd LDL-C estimating equation. This equation was implemented on 2024. Prior to this date LDL-C was estimated using the Friedewald equation. Literature References: 1. Expert Panel on Integrated Guidelines for Cardiovascular Health and Risk Reduction in Children and Adolescents. Pediatrics 2011;128:S213 2. NCEP Expert Panel. Circulation 2004;110:227 3. Carson Rodriguez et al. MAC Cardiol. 2020 December 22;5(5):540-548. doi: 10.1001/jamacardio.2020.0013 Current Interpretive Data was last revised on 2024. Non-HDL Cholesterol 151 mg/dL [facility] Comment: Interpretive Data Ages < or = [...] MD LAB BLOOD ORDERABLES F inal Result [facility] [address] Department [place] [address] * Comprehensive metabolic panel (02/28/2025 11:29 AM CDT) Sodium 137 135 - 145 mmol/L Potassium, pl 4.4 3.3 - 4.9 mmol/L [facility] Chloride 101 97 - 110 mmol/L [facility] CO2 24 22 - 32 mmol/L [facility] Anion gap 12 2 - 15 mmol/L [facility] BUN 12 6 - 25 mg/dL [facility] Creatinine 0.95 0.80 - 1.30 mg/dL [facility] Glucose 99 70 - 199 mg/dL [facility] Comment: Interpretive Data Fasting glucose >/= 126 [...] classification and Diagnosis of Diabetes Diabetes Care 2021; 46: S19-S40. Current interpretive data was last [...] LAB BLOOD ORDERABLES F inal Result [facility] [address] [place] [address] * Hepatitis C antibody Blood (03/10/2024 4:56 PM CDT) Hep C Ab Nonreactive Nonreactive Comment:Antibodies to HCV no t detected. Does NOT exclude the possibility of recent exposure to HCV. Current interpretive data was last revised on 22 Blood 03/10/2024 4:56 PM CDT 03/10/2024 5:26 PM CDT Gauri Rock MD LAB MICROBIOLOGY - GEN ERAL ORDERABLES Final Result [facility] [place] [address] from Last 3 Months or Most Recently Relevant to Health Maintenance Insurance BLUE ACCESS OOS BLUE ACCESS OOS BLUE ACCESS OOS [employer] ACCESS OOS Advance Directives For more information, please contact: [phone] * Full Code (Latest Code Status on [...] 2:23 PM 05/01/2023 5:16 AM Care Teams Coat Finisher Relationship Specialty Start Date End Date Gauri Rock MD PCP - General Internal Medicine 12/31/22 [place] [address] [address] [address] Consulting Physician Infectious Diseases 06/26/23 Miscellaneous, Not In File 06/26/23 Roland Singh MD [address] [place] [address] Consulting Physician Gastroenterology 06/26/23 Parvez Amezcua MD [address] [place] [address] Consulting Physician General Surgery 04/03/24 Titi Adorno MD 1 [facility] [place] [address] Consulting Physician Pain Management 06/09/24
--- OUTSIDE RECORDS SUMMARY | 2025-03-04 19:13 | XMS_ITS | Encounter Summary ---
Author Organization [facility] Address [address] [place] [address] Phone Care Team Providers Care Water Regulator And Valve Repairer Name Role Phone Gauri Rock MD Primary Care Provider Leeann Denton DO Unavailable [phone]- [phone] Miscellaneous, Not In File Unavailable Unava ilable Roland Singh MD Unavailable [phone] Parvez Amezcua MD Unavailable [phone] Titi Adorno MD Unavailable [phone] Encounter Details Date Type Department Care Team (Late st Contact Info) Description 03/01/2025 Results Follow-Up [facility] [address] [facility] [address] [place] [address] [place] [address] Gauri Rock MD [address] [facility] [address] [place] [address] Lipid panel, Hemoglobin A1c, Comprehensive metabolic panel, Additional followed-up results: 3 Social History Tobacco Use Types Packs/Day Years Used Date Smoking Tobacco: Never Smokeless Tobacco: Never Alcohol Use Standard Drinks/Week Comments [...] materials from doctor or pharmacy Never 06/21/2024 [facility] Utilities Answer Date Recorded In the past 12 months has th e electric, gas, oil, or water company threatened to shut off services in your [...] often do you attend chur ch or episcopal services? Never 04/11/2024 Do you belong to any clubs o r organizations such as advent groups, unions, fraternal or athletic groups, or [...] any time in the past 12 m [facility], were you homeless or living in a fci (including now)? No 04/11/2024 Personal Safety Answer Date Recorded Have you ever been in or are you currently in a harmful physical or emotional relationship or is someone making you feel afraid or unsafe? 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 Gender Identity Not on file Sexual Orientation Not on file documented as of this encounter Plan of Treatment Not on file documented as of this encounter Visit Diagnoses Not on filedocumented in this encounter Care Teams Water Regulator And Valve Repairer Relationship Specialty Start Date End Date Gauri Rock MD PCP - General Internal Medicine 12/31/22 [place] [address] [place] [address] Consulting Physician Infectious Diseases 06/26/23 Miscellaneous, Not In File 06/26/23 Roland Singh MD [address] [place] [address] Consulting Physician Gastroenterology 06/26/23 Parvez Amezcua MD [address] [place] [address] Consulting Physician General Surgery 04/03/24 Titi Adorno MD 1 [facility] [place] [address] Consulting Physician Pain Management 06/09/24 documented as of this encounter
--- OUTSIDE RECORDS SUMMARY | 2025-03-04 19:14 | XMS_ITS | Encounter Summary ---
Author Organization [facility] Healthcare Address [address] [place] [address] Care Team Providers Care Radio Operator Name Role Phone Gauri Rock MD Primary Care Provider Leeann Denton DO Unavailable [phone] Miscellaneous, Not In File Unavailable Unava ilable Roland Singh MD Unavailable [phone] Parvez Amezcua MD Unavailable [phone] Titi Adorno MD Unavailable [phone] Encounter Details Date Type Department Care Team (Late st Contact Info) Description 03/31/[address] [facility] - Interventional Radiology [address] [place] [address] Almaz Parks RN Social History [...] week 02/10/2023 How often do you attend [facility] or jewish services? Never 02/10/2023 Do you belong to any clubs o r organizations such as uatsdin groups, unions, fraternal or athletic groups, or [...] place to sleep or slept in a skilled nursing (including now)? 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 [place] [address] Consulting Physician Pain Management 06/09/24 documented as of this encounter
--- OUTSIDE RECORDS SUMMARY | 2025-03-04 19:14 | XMS_ITS | Patient Health Record ---
Author Organization [facility] Address [address] [place] [address] Care Team Providers Care Welder/Fitter Name Role Phone Gauri Rock MD Primary Care Provider Unav nicola MARSHALL MD, YUNG Unavailable Meghana CORREA, Ap Unavailable Unavailable Reason For Referral No Information Plan Of Treatment No Information Insurance Providers Payer Name Payer Address Payer Phone Subscriber Number Group Number Insured Name Patient Relationship to Insured Coverage Start Date Coverage End Date [place] [address] [place], [place] [id number] Robert Mcclain Self - patient is the insured
--- NOTE | 2025-03-04 19:19 | ED_ITS ---
HPI - Extremity Injury (Upper) General Chief Complaint: Extremity Problem,Nontraumatic Stated Complaint: hand injury Time Seen by Provider: 03/04/25 19:21 Source: patient and RN notes reviewed Mode of arrival: ambulatory Limitations: no limitations History of Present Illness HPI narrative: 39-year-old male presents with concern for right hand pain. Reports pain at the base of the 4th digit of the right hand for 2 weeks. He denies injury or trauma. Reports when he plays golf it aggravates the pain. 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 He denies redness or warmth. 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 He has not taken any intervention for this pain. MD complaint: injury to: right, hand and finger Related Data Home Medications ?Medication ?Instructions ?Recorded ?Confirmed ?Last Taken ?Type cetirizine 10 mg tablet (Zyrtec) 10 mg PO DAILY 07/01/22 01/27/23 Unknown History fluticasone propionate 50 2 spray intranasal DAILY 01/10/23 01/27/23 Unknown History mcg/actuation nasal spray,suspension Allergies Allergy/AdvReac Type Severity Reaction Status Date / Time No Known Allergies Allergy Unknown Verified 03/04/25 19:14 Review of Systems Review of Systems: CONSTITUTIONAL: Denies malaise, chills, sweats, or fever. SKIN: Denies rash or itching, open skin, laceration, abrasion, redness, warmth, swelling. MUSCULOSKELETAL: Reports right hand pain NEUROLOGIC: Denies numbness, weakness All systems reviewed & are unremarkable except as noted in HPI and below PMFSH Past Medical History Medical History Elevated liver enzymes GERD (gastroesophageal reflux disease) Gout Hepatic steatosis Noted on CT scan 01/24/2023. Nausea and vomiting in adult Post-ERCP acute pancreatitis Seasonal allergies Upper abdominal pain Surgical History Surgical History History of cholecystectomy Family History Family History Other Family history non-contributory Social History Social History Social History: Surrogate medical decision maker: Jeanette Coker, spouse. Code status: Full code. Smoking status: Never smoker Alcohol use details: Rare alcohol use. Lack of Transportation: No Lack of Food: Never True Current Housing: I Have Housing Concerned About Future Housing: No Difficulty Paying Gas/Electric Bills: No Difficulty Paying for Meds: No Currently Unemployed: No Education: Associate Degree Difficulty w/ Childcare or Family Care: No Additional living arrangements comments: Lives with spouse and 3 children in [place]. Additional occupation/education comments: Works for [employer]. Spiritual care concerns: No Comments At time of signature, agree with nursing past medical, surgical, social and family history. There is no relevant family history pertinent to the presenting complaint Exam Narrative: GENERAL: Well-appearing, well-nourished, and in no acute distress. HEAD: Normocephalic EYES: PERRLA, conjunctivae clear NECK: Supple. CHEST: Speaks in full sentences. No respiratory distress. HEART: Regular rate and rhythm. Normal and equal peripheral pulses. EXTREMITIES: Right hand and digits of hand have normal strength and sensation. 5/5 strength with digit flexion, extension. Range of motion normal. No clubbing, cyanosis, or edema noted. No tenderness. Skin intact. Normal digital cascade with flexion of fingers, median, ulnar and radial nerve intact. Normal sensation of each side of finger. No scissoring. Normal thumb opposition. Good capillary refill and radial pulse. Distal capillary refill less than 3 seconds. Patient is right hand dominant SKIN: Warn, dry, intact, pink. No rash NEURO: Alert and oriented x3. PSYCH: Normal mood and affect Course Course Emergency Course: Patient is aware of diagnosis, understands and agrees to treatment plan. Anticipatory guidance given. Patient agrees to follow-up as directed and is aware of reasons to seek care at the emergency department. Portions of this record may have been created with voice recognition software Level of Care: Express Care Visit Vital Signs Vital signs: Reviewed. Critical Care Time Critical Care Time Critical Care Time: No Discharge Plan Discharge Clinical Impression: Tendinitis Patient Disposition: Home Condition: Stable Instructions: Tendinitis (ED) Additional Instructions: Avoid activities that cause pain until the pain subsides. Ice to the area 20-30 minutes 4-6 times a day Elastic wrap/orthopedic splint as directed for comfort for the next 5-7 days Tylenol for lesser pain Prednisone as prescribed for the inflammation Follow up with your primary care provider if the condition is not improving within 1 week. If the condition worsens with numbness, tingling, decrease sensation with weakness seek treatment in the emergency room immediately. Patient Language: Setswana Prescriptions: New prednisone 50 mg tablet 50 mg PO DAILY 5 Days Qty: 5 0RF No Action cetirizine [Zyrtec] 10 mg Tablet 10 mg PO DAILY fluticasone propionate 50 mcg/actuation [place],Suspension 2 spray INTRANASAL DAILY Rx Instructions: administer into each nostril ondansetron 4 mg tablet,disintegrating 4 mg PO Q8H PRN (Reason: nausea and vomiting) Qty: 14 0RF ibuprofen 600 mg tablet 600 mg PO TID PRN (Reason: pain) Qty: 10 0RF Follow-up/Referrals: UNKNOWN,DOCTOR [Primary Care Provider] - Time of Disposition: 19:30
[2025-03-04 19:21] VITALS: BP 128/81; PULSE 101; RESP 18; TEMP 36.6; O2SAT 97
== END 2025-03-04 19:31 | disposition home or self-care (01) ==
PROVIDERS: Emergency Provider Nurse Practitioner
DX: M67.841 Other specified disorders of synovium, right hand (principal); K21.9 Gastro-esophageal reflux disease without esophagitis; M10.9 Gout, unspecified; K76.0 Fatty (change of) liver, not elsewhere classified
CPT/HCPCS: 99213; G0463